=== PATIENT | female | born 1945 | race Caucasian/White ===

== ENCOUNTER → 2020-10-05 15:04 | Outpatient (BNVA) | payer MEDICARE, MEDICAID, SELFPAY | PROVIDERS: PCP Internal Medicine; Visit Provider Internal Medicine Cardiovascular Disease | DX: R00.2 Palpitations (principal) | CPT/HCPCS: 93005; 99212 ==

== ENCOUNTER 2023-08-17 18:40 | Inpatient (IN) | payer MEDICARE, MEDICAID, SELFPAY ==
--- NOTE | ~2023-08-17 | XR_ITS ---
Exams: Left tib-fib 4 views right tib-fib 4 views pelvis and right hip 3 views chest 1 view HISTORY: Assess for osteomyelitis. Fever. Rule out pneumonia. COMPARISON: Baseline including 01/22/2018. FINDINGS: Severe degeneration of the both knee joints. No focal osteolysis or periosteal new bone formation. Diffuse subcutaneous edema. Soft tissue calcifications anteriorly about the calf. No soft tissue air. Imaging of the pelvis and right femur demonstrates no focal deformity. No focal lesion or evidence for osteomyelitis. Coarse calcifications in the pelvis noted. Review of chest infiltrates mild cardia megaly. Allowing for technical limitations on this portable supine exam, there is no gross abnormality. No infiltrate. XR/XR hip RT w [id number] IMPRESSION: 1. Severe arthropathy of the knee joints. 2. No evidence for osteomyelitis of the pelvis or right femur. 3. Diffuse soft tissue swelling and subcutaneous emphysema. 4. 4. No active chest disease.
--- NOTE | ~2023-08-17 | XR_ITS ---
Exams: Left tib-fib 4 views right tib-fib 4 views pelvis and right hip 3 views chest 1 view HISTORY: Assess for osteomyelitis. Fever. Rule out pneumonia. COMPARISON: Baseline including 01/22/2018. FINDINGS: Severe degeneration of the both knee joints. No focal osteolysis or periosteal new bone formation. Diffuse subcutaneous edema. Soft tissue calcifications anteriorly about the calf. No soft tissue air. Imaging of the pelvis and right femur demonstrates no focal deformity. No focal lesion or evidence for osteomyelitis. Coarse calcifications in the pelvis noted. Review of chest infiltrates mild cardia megaly. Allowing for technical limitations on this portable supine exam, there is no gross abnormality. No infiltrate. XR/XR tibia fibula LT 2V IMPRESSION: 1. Severe arthropathy of the knee joints. 2. No evidence for osteomyelitis of the pelvis or right femur. 3. Diffuse soft tissue swelling and subcutaneous emphysema. 4. 4. No active chest disease.
--- NOTE | ~2023-08-17 | US_ITS ---
EXAMINATION: US VENOUS ULTRASOUND WITH DOPPLER LOWER EXTREMITY, BILATERAL CLINICAL INFORMATION: Bilateral leg swelling COMPARISON: None available. TECHNIQUE: Ultrasound of the deep veins is performed from the hip to the calf with compression sonography and color and pulse Doppler assessment. Spectral analysis with color-flow imaging is performed. The exam was extremely limited secondary to body habitus. Peroneal veins were not visualized FINDINGS: RIGHT: There is normal venous compression and respiratory variation and augmented flow. The visualized common femoral vein, superficial femoral vein, profunda femoral vein and popliteal vein show no evidence of DVT. Limited views of the tibial veins There is no significant popliteal fossa cyst. LEFT: There is normal venous compression and respiratory variation and augmented flow. The visualized common femoral vein, superficial femoral vein, profunda femoral vein and popliteal vein show no evidence of DVT. Limited views of the tibial veins There is no significant popliteal fossa cyst. If the patient's symptoms persist, followup ultrasound in 5 days 7 days might be of value to exclude proximal propagation from a non-visualized calf vein. US/US venous duplex LE BI IMPRESSION: No DVT demonstrated in the bilateral lower extremity.
--- NOTE | ~2023-08-17 | XR_ITS ---
Exams: Left tib-fib 4 views right tib-fib 4 views pelvis and right hip 3 views chest 1 view HISTORY: Assess for osteomyelitis. Fever. Rule out pneumonia. COMPARISON: Baseline including 01/22/2018. FINDINGS: Severe degeneration of the both knee joints. No focal osteolysis or periosteal new bone formation. Diffuse subcutaneous edema. Soft tissue calcifications anteriorly about the calf. No soft tissue air. Imaging of the pelvis and right femur demonstrates no focal deformity. No focal lesion or evidence for osteomyelitis. Coarse calcifications in the pelvis noted. Review of chest infiltrates mild cardia megaly. Allowing for technical limitations on this portable supine exam, there is no gross abnormality. No infiltrate. XR/XR tibia fibula RT 2V IMPRESSION: 1. Severe arthropathy of the knee joints. 2. No evidence for osteomyelitis of the pelvis or right femur. 3. Diffuse soft tissue swelling and subcutaneous emphysema. 4. 4. No active chest disease.
--- NOTE | ~2023-08-17 | XR_ITS ---
Exams: Left tib-fib 4 views right tib-fib 4 views pelvis and right hip 3 views chest 1 view HISTORY: Assess for osteomyelitis. Fever. Rule out pneumonia. COMPARISON: Baseline including 01/22/2018. FINDINGS: Severe degeneration of the both knee joints. No focal osteolysis or periosteal new bone formation. Diffuse subcutaneous edema. Soft tissue calcifications anteriorly about the calf. No soft tissue air. Imaging of the pelvis and right femur demonstrates no focal deformity. No focal lesion or evidence for osteomyelitis. Coarse calcifications in the pelvis noted. Review of chest infiltrates mild cardia megaly. Allowing for technical limitations on this portable supine exam, there is no gross abnormality. No infiltrate. XR/XR chest 1V IMPRESSION: 1. Severe arthropathy of the knee joints. 2. No evidence for osteomyelitis of the pelvis or right femur. 3. Diffuse soft tissue swelling and subcutaneous emphysema. 4. 4. No active chest disease.
--- NOTE | 2023-08-17 18:56 | ECG_ITS ---
Test Reason : SEPSIS Blood Pressure : / mmHG Vent. Rate : 114 BPM Atrial Rate : 114 BPM P-R Int : 184 ms QRS Dur : 112 ms QT Int : 346 ms P-R-T Axes : 000 -49 039 degrees QTc Int : 476 ms Poor data quality Sinus tachycardia Left anterior fascicular block Minimal voltage criteria for LVH, may be normal variant ( Tanmay product ) Possible Anterolateral infarct (cited on or before 23-JAN-2018) Abnormal ECG When compared with ECG of 12-DEC-2018 20:46, Poor data quality in current ECG precludes serial comparison Referred By: Zoë Villa Electronically Signed By:SALOMON CADET MD
[2023-08-17 19:04] VITALS: BP 140/90; BP 163/66; PULSE 110; PULSE 119; RESP 20; TEMP 40.3; O2SAT 90; O2SAT 94; BMI 60.5
--- NOTE | 2023-08-17 19:15 | ED_ITS ---
HPI - General Adult General Chief complaint: Fever Stated complaint: WEAK,NAUSEA FROM SNF PER EMS Time Seen by Provider: 08/17/23 19:07 Source: patient Mode of arrival: ambulatory Limitations: no limitations History of Present Illness HPI narrative: 78-year-old female with past medical history DVT, edema, hypokalemia, major depressive disorder,, pleural effusion peripheral vascular disease, morbid obesity, hypertension presents to the ED for presents to ED for bilateral lower extremity redness hotness and fever. Patient from prior any [facility]. Patient not in distress. patient denies any URI symptoms Related Data Home Medications Medication Instructions Recorded Confirmed apixaban 2.5 mg tablet 2.5 mg PO BID 10/05/20 08/17/23 diclofenac sodium 1 % topical gel 4 g topical Q6H PRN Pain (Scale 10/05/20 08/17/23 Score 1-3) duloxetine 60 mg capsule,delayed 60 mg PO DAILY 10/05/20 08/17/23 release famotidine 20 mg tablet 20 mg PO BEDTIME 10/05/20 08/17/23 gabapentin 100 mg capsule 100 mg PO TID 10/05/20 08/17/23 metoprolol tartrate 25 mg tablet 12.5 mg PO BID 10/05/20 08/17/23 trazodone 100 mg tablet 100 mg PO BEDTIME 10/05/20 08/17/23 acetaminophen 325 mg tablet 650 mg PO Q6H PRN Pain (Scale 08/17/23 08/17/23 Score 1-3) bisacodyl 10 mg rectal suppository 10 mg [place] DAILY PRN Constipation 08/17/23 08/17/23 cholecalciferol (vitamin D3) 50 50 mcg PO DAILY 08/17/23 08/17/23 mcg (2,000 unit) tablet docusate sodium 100 mg capsule 100 mg PO BID 08/17/23 08/17/23 furosemide 40 mg tablet 40 mg PO BID 08/17/23 08/17/23 guaifenesin 100 mg/5 mL oral liquid 200 mg PO Q4H PRN Cough 08/17/23 08/17/23 magnesium hydroxide 400 mg/5 mL 30 ml PO DAILY PRN Constipation 08/17/23 08/17/23 oral suspension (Milk of Magnesia) ondansetron HCl 4 mg tablet 4 mg PO Q4H PRN Nausea And Vomiting 08/17/23 08/17/23 potassium chloride 20 mEq 40 meq PO DAILY 08/17/23 08/17/23 tablet,extended release(part/cryst) (Klor-Con M) Allergies Allergy/AdvReac Type Severity Reaction Status Date / Time aspirin [ASPIRIN] Allergy Unknown TURNS RED Verified 08/17/23 19:46 codeine [CODEINE] Allergy Unknown UNKNOWN Verified 08/17/23 19:46 nitrofurantoin Allergy Unknown UNKNOWN Verified 08/17/23 19:46 [NITROFURANTOIN] Sulfa (Sulfonamide Allergy Unknown UNKNOWN Verified 08/17/23 19:46 Antibiotics) [SULFA (SULFONAMIDE ANTIBIOTICS)] Aspirin Allergy Unknown Unknown Uncoded 08/17/23 19:46 aspirin Allergy Unknown Unknown Uncoded 08/17/23 19:46 Review of Systems 2 Review of Systems: bilateral legs redness fever chills Yes all other systems are reviewed and are negative [facility] Past Medical History Medical History Obesity Chronic anticoagulation DVT (deep venous thrombosis) Lymphedema Mood disorder Congestive heart failure Social History Social History Household Members: Other Housing: [facility] Other:: [facility] and [facility] [place] Do you presently have visiting nurse or other home services: Yes Patient Tobacco Use Status: Never used Tobacco e-Cigarette/Vaping Use: Never Used Second Hand Smoke Exposure: No Advance Directives Date on File: 08/17/23 Physical Exam ED Vital Signs: Vital Signs - 24 hr 08/17/23 19:04 08/17/23 19:39 Temperature 104.5 F H 100.4 F Pulse Rate 119 H 116 H Respiratory Rate 20 20 Blood Pressure 163/66 H 118/54 L Pulse Oximetry 94 93 Oxygen Delivery Method Room Air Room Air BMI result Body Mass Index 60.5 Const General: cooperative, healthy appearing, comfortable, no acute distress, well developed, alert and awake Orientation/consciousness: oriented to person, oriented to place, oriented to time and patient oriented x3 HENMT Head: Yes normal to inspection, Yes No palpable skull fracture present, Yes normocephalic and Yes atraumatic Eyes General: appearance normal, both eyes and all related structures Neck Neck: Yes normal visual inspection, Yes full ROM, Yes no lymphadenopathy, Yes no meningeal signs, Yes trachea midline, Yes supple, No anterior neck swelling and No tender Chest Chest palpation & inspection: normal inspection of the chest and normal palpation of entire chest wall Resp Effort & Inspection: normal respiratory effort and able to speak in complete sentences Auscultation: clear to auscultation bilaterally Cardio Jugular venous distension: no JVD Heart sounds: S1 normal heart sound present and S2 normal heart sound present GI Inspection: Yes normal to inspection Palpation (GI): Soft to palpation, not firm, nontender, no guarding and not rigid General: Yes no CVA tenderness Back/Spine/Pelvis Back: no CVA tenderness and No back tenderness Skin General skin exam: no rashes or lesions noted, elasticity normal and turgor normal Neuro General: oriented to person, oriented to place, oriented to time, patient oriented x3, gait normal, tone normal, moves all extremities, Normal light touch and pain sensation, no meningeal signs, no focal motor deficits, CN's II-XI intact bilaterally and normal sensation to monofilament Extrem Other: bilateral leg redness warm hot to touch. Psych Appearance: grossly normal, well kempt and not disheveled Course Course Course Narrative: 7:15Pm: Sepsis protocal called Medications Administered Generic Name Dose Route Start Last Admin Trade Name Valentínq PRN Reason Stop Dose Admin Apixaban 5 mg 08/17/23 21:35 08/18/23 08:27 Apixaban 5 Mg Tablet PO 5 mg BID PAM Administration Docusate Sodium 100 mg 08/18/23 09:00 08/18/23 08:26 Docusate Sodium 100 Mg Capsule PO 100 mg BID PAM Administration Duloxetine HCl 60 mg 08/18/23 09:00 08/18/23 08:26 Duloxetine Hcl 60 Mg Capsule.Dr PO 60 mg DAILY PAM Administration Gabapentin 100 mg 08/18/23 09:00 08/18/23 08:26 Gabapentin 100 Mg Capsule PO 100 mg TID PAM Administration Piperacillin Sod/Tazobactam 50 mls @ 100 mls/hr 08/18/23 08:00 08/18/23 09:26 Sod 3.375 gm/ Sodium Chloride IV Infused Q6H PAM Infusion Sodium Chloride 3 ml 08/18/23 00:00 08/18/23 08:26 0.9 % Sodium Chloride Flush 3 Ml Syringe IVFLUSH 3 ml QSHIFT PAM Administration Trazodone HCl 100 mg 08/17/23 21:35 08/17/23 22:24 Trazodone Hcl 100 Mg Tablet PO 100 mg BEDTIME PAM Administration Vitamin D 50 mcg 08/18/23 09:00 08/18/23 08:26 Cholecalciferol (Vitamin D3) 25 Mcg Tablet PO 50 mcg DAILY PAM Administration Discontinued Medications Generic Name Dose Route Start Last Admin Trade Name Freq PRN Reason Stop Dose Admin Acetaminophen 975 mg 08/17/23 19:07 08/17/23 19:46 Acetaminophen 325 Mg Tablet PO 08/17/23 19:08 975 mg ONCE ONE Administration Vancomycin HCl 2,000 mg in 500 mls @ 250 mls/hr 08/17/23 19:17 08/18/23 02:27 Vancomycin/Ns IV 08/17/23 21:16 Infused ONCE ONE Infusion Piperacillin Sod/Tazobactam 50 mls @ 100 mls/hr 08/17/23 19:17 08/17/23 21:19 Sod 3.375 gm/ Sodium Chloride IV 08/17/23 19:46 Infused ONCE ONE Infusion Sodium Chloride 1,000 mls @ 999 mls/hr 08/17/23 20:03 08/17/23 23:50 Ns IV 08/17/23 21:03 Infused .Q1H1M STA Infusion Acetaminophen 1,000 mg in 100 mls @ 400 mls/hr 08/17/23 22:29 08/17/23 23:22 Ofirmev IV 08/17/23 22:43 Infused ONCE ONE Infusion Sodium Chloride 1,000 mls @ 999 mls/hr 08/18/23 02:59 08/18/23 04:01 Ns IV 08/18/23 03:59 Infused .Q1H1M ONE Infusion Cefepime HCl 2 gm/ Sodium 50 mls @ 100 mls/hr 08/18/23 04:00 08/18/23 04:59 Chloride IV Infused Q8H PAM Infusion Potassium Chloride 20 meq 08/18/23 07:37 08/18/23 08:27 Potassium Chloride Er 20 Meq Tab.Er.Prt PO 08/18/23 07:38 20 meq ONCE ONE Administration Medical Decision Making Medical Decision Making MDM Narrative: 78-year-old female multiple past medical histories presents to ED for fever tachycardia bilateral leg redness and hardness. Patient treated as septic and given IV antibiotics 1 L of fluid ordered. Patient history of CHF will not fluid overload. Dr. Norwood aware of case and recommended bilateral ultrasound and x-ray of the hip. Patient states right hip painful and warm also. ESR CRP elevated. Patient to be admitted Differential Diagnosis Differential Diagnoses: The differential diagnosis associated with the presentation includes (DVT, osteomyelilits, Cellulitis, necrotizing fasctitis, ) Admission/Observation Consideration of admission/observation: Escalation of care including admission/observation considered Consult Healthcare Provider Management of the patient was discussed with: Hospitalist (Dr. Silveira) Lab Data MDM Lab Attestation statement: I reviewed the patient's lab results. 08/18/23 06:12 08/18/23 06:12 Labs: Lab Results 08/17/23 Range/Units 19:32 WBC 23.7 H (4.8-10.8) X10*3/uL RBC 5.11 (4.20-5.50) X10*6/uL Hgb 14.5 (12.0-16.0) g/dl Hct 44.9 (37.0-47.0) % MCV 87.9 (80.0-98.0) fL MCH 28.4 (27.0-33.0) pg MCHC 32.3 (31.0-35.0) g/dl RDW 14.9 (11.0-16.0) % Plt Count 197 (160-400) X10*3/uL MPV 9.8 (9.4-12.3) fL Immature Gran % (Auto) Cancelled Neut % (Auto) Cancelled Lymph % (Auto) Cancelled Beckham % (Auto) Cancelled Eos % (Auto) Cancelled Baso % (Auto) Cancelled Lymph # (Auto) Cancelled Beckham # (Auto) Cancelled Eos # (Auto) Cancelled Baso # (Auto) Cancelled Abs Immat Gran (auto) Cancelled Absolute Neuts (auto) Cancelled Absolute Nucleated RBC 0.000 (0.0-0.012) X10*3/uL Nucleated RBC % (auto) 0.0 (0.0-0.2) /100WBC Neutrophils % (Manual) 71 (45-73) % Band Neutrophils % 27 H (3-5) % Lymphocytes % (Manual) 1 L (20-40) % Monocytes % (Manual) 1 L (2-11) % Abs Neuts (Manual) 23.2 H (2.0-8.3) X10*3/uL Lymphocytes # (Manual) 0.2 L (1.2-4.9) X10*3/uL Monocytes # (Manual) 0.2 (0.1-1.2) X10*3/uL Platelet Estimate NORMAL (NORMAL) Plt Morphology Comment NORMAL RBC Morphology NORMAL Smear Tech's Comments MANUAL DIFF ESR 67 H (0-20) MM/HR Sodium 142 (135-145) mmol/L Potassium 3.4 (3.3-5.1) mmol/L Chloride 96 (96-108) mmol/L Carbon Dioxide 33 H (22-29) mmol/L Anion Gap 16 (12-20) BUN 11 (9-16) mg/dL Creatinine 0.92 (0.5-1.4) mg/dL Estim Creat Clear Calc 79.5 Estimated GFR 59 Random Glucose 162 H (60-115) mg/dL Lactic Acid 3.4 H* (0.5-2.0) mmol/L Calcium 9.5 (8.4-10.2) mg/dL Magnesium 1.9 (1.6-2.6) mg/dL Total Bilirubin 0.8 (0.0-1.0) mg/dL AST 25 (5-31) U/L ALT 10 (0-31) U/L Alkaline Phosphatase 100 (39-117) U/L Troponin I High Sens 4.8 (<3.5-17.0) ng/L C-Reactive Protein 11.89 H (< or = 0.50) mg/dL B-Natriuretic Peptide 156 H (<100) pg/mL Total Protein 8.0 (6.5-8.0) g/dL Albumin 3.9 (3.5-5.0) g/dL Influenza Type A (PCR) NEGATIVE (Negative) Influenza Type B (PCR) NEGATIVE (Negative) RSV RNA Qual (PCR) NEGATIVE (Negative) SARS-CoV-2 RNA (RT-PCR) NEGATIVE (Negative) Independent Interpretation I performed an independent interpretation of an: Plain X-Ray and Ultrasound Radiology Impression Discussion of test interpretation with radiology: I have reviewed the radiologist's reading. External Record Review External record reviewed: Other (Prior Visits) Discharge Plan Discharge Clinical Impression: Sepsis due to cellulitis Patient Disposition: Admitted As Inpatient Interventions: Admission Worksheet (ED) Last Done: 08/17/23 23:37 Discharge Date/Time: 08/18/23 00:28
[2023-08-17 19:39] VITALS: BP 118/54; PULSE 116; RESP 20; TEMP 38; O2SAT 93
[2023-08-17 19:41] LABS: Hematocrit 44.9 % (37.0-47.0); Hemoglobin 14.5 g/dl (12.0-16.0); Mean Corpuscular HGB Conc 32.3 g/dl (31.0-35.0); Mean Corpuscular Hemoglobin 28.4 pg (27.0-33.0); Mean Corpuscular Volume 87.9 fL (80.0-98.0); Mean Platelet Volume 9.8 fL (9.4-12.3); Platelet Count 197 X10*3/uL (160-400); Red Blood Count 5.11 X10*6/uL (4.20-5.50); Red Cell Distribution Width 14.9 % (11.0-16.0); White Blood Count 23.7 X10*3/uL (4.8-10.8)
[2023-08-17] MEDS: Acetaminophen 325 MG TABLET 975 MG PO (19:46)
--- NOTE | 2023-08-17 19:50 | PC.NURSE ---
pt medicated with tylenol for fever
[2023-08-17 19:56] LABS: C Reactive Protein 11.89 mg/dL (< or = 0.50)
[2023-08-17 19:59] LABS: Alanine Aminotransferase 10 U/L (0-31); Albumin Level 3.9 g/dL (3.5-5.0); Alkaline Phosphatase 100 U/L (39-117); Anion Gap 16 (12-20); Aspartate Amino Transferase 25 U/L (5-31); Bilirubin Total 0.8 mg/dL (0.0-1.0); Blood Urea Nitrogen 11 mg/dL (9-16); Calcium 9.5 mg/dL (8.4-10.2); Carbon Dioxide 33 mmol/L (22-29); Chloride 96 mmol/L (96-108); Creatinine Clr Calc Pharmacy 79.5; Estimated Glomerular Filt Rate 59; Glucose Random 162 mg/dL (60-115); Magnesium 1.9 mg/dL (1.6-2.6); Potassium 3.4 mmol/L (3.3-5.1); Sodium 142 mmol/L (135-145)
[2023-08-17 20:01] LABS: B Type Natriuretic Peptide 156 pg/mL (<100)
--- NOTE | 2023-08-17 20:04 | PC.NURSE ---
labs and first set of cultures sent, IV placed to L AC. 2nd set of cultures delayed d/t hard stick
[2023-08-17 20:06] LABS: Troponin-I High Sensitivity 4.8 ng/L (<3.5-17.0)
[2023-08-17 20:10] LABS: Lactic Acid 3.4 mmol/L (0.5-2.0)
[2023-08-17 20:13] LABS: SLIDE REVIEW MANUAL DIFF
[2023-08-17 20:18] LABS: Neutrophils Percent Manual 71 % (45-73)
[2023-08-17] MEDS: Piperacillin Sodium/Tazobactam 3.375 GM in 0.9 % Sodium Chloride 50 ML IV (20:19)
[2023-08-17 20:20] LABS: Band Neutrophils Percent 27 % (3-5); Lymphocytes Absolute Manual 0.2 X10*3/uL (1.2-4.9); Lymphocytes Percent Manual 1 % (20-40); Monocytes Absolute Manual 0.2 X10*3/uL (0.1-1.2); Monocytes Percent Manual 1 % (2-11); Neutrophils Absolute Manual 23.2 X10*3/uL (2.0-8.3)
[2023-08-17 20:21] LABS: Platelet Estimate NORMAL (NORMAL); Platelet Morphology Comment NORMAL; RBC Morphology NORMAL
[2023-08-17 20:26] LABS: Influenza A PCR NEGATIVE (Negative); Influenza B PCR NEGATIVE (Negative); Resp Syncy Virus RNA Qual PCR NEGATIVE (Negative); SARS COV2 PCR INHOUSE NEGATIVE (Negative)
[2023-08-17] MEDS: 0.9 % Sodium Chloride 1,000 ML 999 ML IV (20:26)
--- NOTE | 2023-08-17 20:27 | PC.NURSE ---
2nd set of cultures obtained. abx and IVF started
[2023-08-17 20:31] LABS: Erythrocyte Sedimentation Rate 67 MM/HR (0-20)
--- NOTE | 2023-08-17 20:32 | PC.NURSE ---
pt taken to XR
--- NOTE | 2023-08-17 20:57 | PC.NURSE ---
pt DI Gaston, only infusing 1L NS d/t CHF.
--- NOTE | 2023-08-17 20:58 | PHA.MEDREC ---
Pharmacy Consult ? Medication Reconciliation Pharmacy has completed the medication reconciliation. med lis obtained from [facility]
[2023-08-17] MEDS: vancomycin/NS 2,000 MG/500 ML PLAST..BAG 250 MG IV (21:19)
--- NOTE | 2023-08-17 21:35 | P.HPHOSP_ITS ---
History of Present Illness Date of Service: 08/17/23 Chief Complaint: Fever This is a 78-year-old female with pertinent history of congestive heart failure, unspecified ejection fraction, mood disorder, history of DVT on anticoagulation, lymphedema who presents to the emergency department for evaluation of fevers. Patient states she has been having 1 day of fever, documented temperature. Also has been having associated chills. No nausea, vomiting, chest discomfort, palpitations, shortness of breath, cough, diarrhea, dysuria. Does not know if she has had a history of cellulitis. Admits red, warm right lower extremity. Also noticed intermittent purulent foul-smelling drainage. She is compliant with home medications In the emergency department, patient was found to be septic. Review of Systems 2 Constitutional: Constitutional: Reports chills and Reports fever(s) Cardiovascular: Cardiovascular: Reports no additional cardiovascular complaints Respiratory: Respiratory: Reports no additional respiratory complaints Gastrointestinal: Gastrointestinal: Reports no additional gastrointestinal complaints Genitourinary: Genitourinary: Reports no additional female genitourinary complaints [facility] Medical History Obesity Chronic anticoagulation DVT (deep venous thrombosis) Lymphedema Mood disorder Congestive heart failure Pertinent family history: No family history of early CAD Social History Smoked in Last 30 Days: No Use of substances other than those prescribed or required for medical reasons: No Advance Directives: Yes Advance Directives on File: Yes Advance Directives Date on File: 08/17/23 Meds Allergies Allergy/AdvReac Type Severity Reaction Status Date / Time aspirin [ASPIRIN] Allergy Unknown TURNS RED Verified 08/17/23 19:46 codeine [CODEINE] Allergy Unknown UNKNOWN Verified 08/17/23 19:46 nitrofurantoin Allergy Unknown UNKNOWN Verified 08/17/23 19:46 [NITROFURANTOIN] Sulfa (Sulfonamide Allergy Unknown UNKNOWN Verified 08/17/23 19:46 Antibiotics) [SULFA (SULFONAMIDE ANTIBIOTICS)] Aspirin Allergy Unknown Unknown Uncoded 08/17/23 19:46 aspirin Allergy Unknown Unknown Uncoded 08/17/23 19:46 Active Medications: Current Medications Acetaminophen (Acetaminophen 325 Mg Tablet) 650 mg PO Q6H PRN PRN Reason: Pain, Mild (Pain Scale 1-3) Apixaban (Apixaban 5 Mg Tablet) 5 mg PO BID [facility] Melatonin (Melatonin 3 Mg Tablet) 6 mg PO BEDTIME PRN PRN Reason: Insomnia Ondansetron HCl (Ondansetron Hcl 4 Mg/2 Ml Vial) 4 mg IVPUSH Q8H PRN PRN Reason: Nausea and Vomiting Pharmacy Consult (Consult Rx Vancomycin Dosing) 1 each MISCELLANE DAILY PRN PRN Reason: Consult order Sodium Chloride (0.9 % Sodium Chloride Flush 3 Ml Syringe) 3 ml IVFLUSH QSHIFT [facility] Home Medications Medication Instructions Recorded Confirmed Last Taken Type apixaban 2.5 mg tablet 2.5 mg PO BID 10/05/20 08/17/23 Unknown History diclofenac sodium 1 % topical gel 4 g topical Q6H PRN Pain (Scale 10/05/20 08/17/23 Unknown History Score 1-3) duloxetine 60 mg capsule,delayed 60 mg PO DAILY 10/05/20 08/17/23 Unknown History release famotidine 20 mg tablet 20 mg PO BEDTIME 10/05/20 08/17/23 Unknown History gabapentin 100 mg capsule 100 mg PO TID 10/05/20 08/17/23 Unknown History metoprolol tartrate 25 mg tablet 12.5 mg PO BID 10/05/20 08/17/23 Unknown History trazodone 100 mg tablet 100 mg PO BEDTIME 10/05/20 08/17/23 Unknown History acetaminophen 325 mg tablet 650 mg PO Q6H PRN Pain (Scale 08/17/23 08/17/23 Unknown History Score 1-3) bisacodyl 10 mg rectal suppository 10 mg [place] DAILY PRN Constipation 08/17/23 08/17/23 Unknown History cholecalciferol (vitamin D3) 50 50 mcg PO DAILY 08/17/23 08/17/23 Unknown History mcg (2,000 unit) tablet docusate sodium 100 mg capsule 100 mg PO BID 08/17/23 08/17/23 Unknown History furosemide 40 mg tablet 40 mg PO BID 08/17/23 08/17/23 Unknown History guaifenesin 100 mg/5 mL oral liquid 200 mg PO Q4H PRN Cough 08/17/23 08/17/23 Unknown History magnesium hydroxide 400 mg/5 mL 30 ml PO DAILY PRN Constipation 08/17/23 08/17/23 Unknown History oral suspension (Milk of Magnesia) ondansetron HCl 4 mg tablet 4 mg PO Q4H PRN Nausea And Vomiting 08/17/23 08/17/23 Unknown History potassium chloride 20 mEq 40 meq PO DAILY 08/17/23 08/17/23 Unknown History tablet,extended release(part/cryst) (Klor-Con M) Physical Exam 2 Vital Signs and Narrative: Vital Signs: Last Vital Signs Temp 100.4 F 08/17/23 19:39 Pulse 116 H 08/17/23 19:39 Resp 20 08/17/23 19:39 BP 118/54 L 08/17/23 19:39 Pulse Ox 93 08/17/23 19:39 O2 Del Method Room Air 08/17/23 19:39 BMI result Body Mass Index 60.5 Middle-aged morbidly obese female lying in bed in no distress Neck supple, no JVD Tachycardia with regular rhythm, S1-S2 heard Regular breath sounds bilaterally, no wheezing or crackles appreciated Abdomen soft nontender, no guarding, no rigidity Patient is awake, alert and oriented to self, place, time and person ; no focal motor deficit Right lower extremity with extensive, warmth, wounds with purulent serosanguineous drainage Psych: Normal mood Bilateral pedal edema Results Labs 08/17/23 19:32 08/17/23 19:32 Labs: Laboratory Results - last 24 hr 08/17/23 19:32 MCV 87.9 MCH 28.4 MCHC 32.3 RDW 14.9 Plt Count 197 MPV 9.8 Immature Gran % (Auto) Cancelled Neut % (Auto) Cancelled Lymph % (Auto) Cancelled Orange % (Auto) Cancelled Eos % (Auto) Cancelled Baso % (Auto) Cancelled Lymph # (Auto) Cancelled Orange # (Auto) Cancelled Eos # (Auto) Cancelled Baso # (Auto) Cancelled Abs Immat Gran (auto) Cancelled Absolute Neuts (auto) Cancelled Absolute Nucleated RBC 0.000 Nucleated RBC % (auto) 0.0 Neutrophils % (Manual) 71 Band Neutrophils % 27 H Lymphocytes % (Manual) 1 L Monocytes % (Manual) 1 L Abs Neuts (Manual) 23.2 H Lymphocytes # (Manual) 0.2 L Monocytes # (Manual) 0.2 Platelet Estimate NORMAL Plt Morphology Comment NORMAL RBC Morphology NORMAL Smear Tech's Comments MANUAL DIFF ESR 67 H Anion Gap 16 Estim Creat Clear Calc 79.5 Estimated GFR 59 Random Glucose 162 H Lactic Acid 3.4 H* Calcium 9.5 Magnesium 1.9 Total Bilirubin 0.8 AST 25 ALT 10 Alkaline Phosphatase 100 C-Reactive Protein 11.89 H B-Natriuretic Peptide 156 H Total Protein 8.0 Albumin 3.9 Influenza Type A (PCR) NEGATIVE Influenza Type B (PCR) NEGATIVE RSV RNA Qual (PCR) NEGATIVE SARS-CoV-2 RNA (RT-PCR) NEGATIVE Assessment and Plan (1) Sepsis due to cellulitis: Status: Acute Plan This is a 78-year-old female with pertinent history of congestive heart failure, unspecified ejection fraction, mood disorder, history of DVT on anticoagulation, lymphedema who presents to the emergency department for evaluation of fevers. #. Sepsis due to right lower extremity purulent cellulitis: Resuscitated with IV crystalloids. Will admit patient and initiate empiric IV antibiotics. Lactic acid and blood culture obtained. UA pending #. Acute lactic acidosis due to sepsis #. History of DVT: On Eliquis #. Congestive heart failure, unspecified EF: No decompensation during admission. Hold furosemide in the setting of sepsis. #. Morbid obesity: Counseled regarding diet and exercise #. Mood disorder: Continue home mood stabilizers DVT prophylaxis: Eliquis Full code Admit as inpatient and will require two night minimum hospital stay for IV antibiotics (as above), which is not possible in a lesser acute setting. Quality Stroke Does the patient have a stroke diagnosis?: No VTE Prior VTE?: No VTE Risk Level:: Medical - moderate - high VTE Device Contraindication: Treatment Not Indicated VTE Drug Contraindication: N/A - Med Ordered
[2023-08-17 21:38] LABS: Reflex Lactate? Lactic Acid Added
--- NOTE | 2023-08-17 21:55 | PHA.PROG ---
Admission Date/Time: August 17, 2023 21:32 Indication: ssti Weight in k kg Adjusted body weight in K.8 Millen body weight in K.4 Obesity Dosing Indication % IBW: Serum Creatinine - Last 168 Hours 08/17/23 19:32 Creatinine 0.92 Estimated CrCl and GFR - Last 168 Hours 08/17/23 19:32 Estim Creat Clear Calc 79.5 Estimated GFR 59 Vancomycin Loading Dose: 2000 mg Current Vancomycin Dosing Regimen: 1500 mg q24h Vancomycin Monitoring using AUC goal of 400 - 600 range with trough as surrogate marker: predicted auc 499 Date and Time for next Vancomycin Level to be drawn: random 08/19 @1900 Pharmacist Comments on Vancomycin Plan: patient obese, bmi 60.5. weight verified with zayra phelps in ed ( bed weight). obese model used. Vancomycin dosing will take advantage of [employer] as a clinical decision support tool that uses Bayesian modeling to calculate individual patient's pharmacokinetic parameters and forecast the patient's drug concentration time course with the target goal AUC 24 range of 400 - 600 mg/L/hr.
--- NOTE | 2023-08-17 21:59 | PC.NURSE ---
rectal temp 102.5. straight cath done, urine obtained. pure wick in place. pt resting with IVF and ABX infusing
[2023-08-17 22:06] VITALS: TEMP 39.2
[2023-08-17] MEDS: traZODone HCL 100 MG TABLET PO (22:24)
[2023-08-17] MEDS: Apixaban 5 MG TABLET PO (22:24)
[2023-08-17 22:28] LABS: ~Lactic Acid-LAB USE ONLY 3.1 mmol/L (0.5-2.0)
[2023-08-17 22:29] LABS: Appearance Urine Cloudy; Color Urine Yellow; Glucose Urine UA Negative (Negative); Leukocyte Esterase Urine Trace (Negative); Nitrite Urine Positive (Negative); PH 5.5 (5.0-9.0); UMIC TRIGGER UACC YES; Urine Blood Large (3+) (Negative); Urine Ketones Negative (Negative); Urine Protein 100 (2+) mg/dL (Neg-Trace)
--- NOTE | 2023-08-17 22:29 | PC.NURSE ---
critical lab. lactic 3.1. aware
[2023-08-17] MEDS: Acetaminophen 1,000 MG/100 ML PIGGYBACK 400 MG IV (23:03)
[2023-08-17 23:05] LABS: Bacteria Urine 4+ (None Seen); Hyaline Casts Urine 0-2 /LPF (0-2); RBC Urine >20 /HPF (0-2); Squamous Epithelial Cell Urine 0-2 /HPF (0-2); UACC Culture Trigger YES
--- NOTE | 2023-08-17 23:11 | PC.NURSE ---
IVF still infusing. IV pump with ABX had to be changed out. would not let me override the TOT time to match how much time was left (1.5 hrs). now infusing at a slower rate d/t time restarting at 2 hrs IV tylenol given per MAR for temp. pt resting comfortably in bed with eyes closed, breathing even and unlabored. not apparent distress noted at this time
[2023-08-17 23:54] VITALS: BP 111/43; PULSE 88; RESP 18; O2SAT 93
[2023-08-18 00:09] VITALS: BP 117/42; PULSE 87; TEMP 38
[2023-08-18 00:14] LABS: Reflex Lactate? 2 Y
[2023-08-18 00:43] VITALS: BP 96/50; PULSE 84; RESP 18; TEMP 36.8
[2023-08-18] MEDS: 0.9 % Sodium Chloride Flush 3 ML SYRINGE IVFLUSH ×4 (00:48→19:44)
[2023-08-18 00:50] VITALS: BMI 58.7
[2023-08-18 00:51] LABS: ~Lactic Acid-LAB USE ONLY 3.2 mmol/L (0.5-2.0)
[2023-08-18] MEDS: 0.9 % Sodium Chloride 1,000 ML 999 ML IV (03:00)
[2023-08-18 04:00] VITALS: BP 125/61; PULSE 77; RESP 18; TEMP 36.9; O2SAT 95
[2023-08-18] MEDS: cefEPime HCl 2 GM in 0.9 % Sodium Chloride 50 ML IV (04:29)
[2023-08-18 06:52] LABS: Creatinine Clr Calc Pharmacy 82.4; Estimated Glomerular Filt Rate > 60
--- NOTE | 2023-08-18 07:00 | CA_ITS ---
Transthoracic Echocardiogram Patient (Last, First, Middle): Roula Prescott C Gender: Female Date of : 1945 Age: 78 Procedure Date: 08/18/2023 Procedure Type: Transthoracic Echocardiogram Location: S3E Height: 162.56 cm Weight: 155.13 kg BSA: 2.46 m2 Heart Rate: bpm BP: 133 / 57 mmHg Industrial Editor: TO/ZINA Referring MD: Cali Paulino MD Filter Press Tender Head: Rey Coughlin MD Symptoms: strepo bacteremia Study Quality: Technically Difficult/contrast ECG Rhythm: Sinus Conclusions: - 1. Technically limited study despite use of contrast agent 2. Normal LV ejection fraction of 65-70% with mild LVH with pseudonormal filling pattern next 3. Cardiac valve are not well visualized with normal cardiac valvular Dopplers 4. Vegetations cannot be conclusively ruled out on this study 5. Mildly dilated ascending aorta Findings Procedure Information Contrast agent, definity, is being given per protocol without apparent complications. The study quality is limited by patients body habitus. Left Ventricle Normal left ventricular size and systolic function. There is mildly increased left ventricular wall thickness. The visually estimated ejection fraction is between 65-70%. Spectral Doppler is indicative of a pseudonormal filling pattern. E/E prime ratio is between 8 and 15 consistent with indeterminate filling pressures. Right Ventricle The right ventricle was not well visualized. Atria The left atrium was not well visualized. Interatrial shunt cannot be excluded. The right atrium was not well visualized. Aortic Valve The aortic valve was not well visualized. There is no aortic valve stenosis. There is no aortic valve regurgitation. Mitral Valve The mitral valve was not well visualized. There is mild mitral annular calcification. There is no mitral valve stenosis. Pulmonic Valve The pulmonic valve was not well visualized. Tricuspid Valve The tricuspid valve was not well visualized. Tricuspid regurgitation envelope is inadequate for calculation of right ventricular systolic pressure. Mildly elevated right atrial pressure. Great Vessels The pulmonary artery was not well visualized. There is mild dilatation of the ascending aorta measuring 3.80 cm. Venous The inferior vena cava is mildly dilated and collapses greater than 50% with inspiration. Pericardium/Pleural The pericardium was not well visualized. Prior Study Comparison Changes noted compared to prior study dated: 11/27/2017. LV systolic function is measured to be within normal range on this study Recommendations, Care & Conclusions Consider a KANG if clinically appropriate. Measurements 2D Linear Measurements IVSd: 1.23 0.6-0.9/0.6-1.0 cm LVIDd: 4.77 3.9-5.3/4.2-5.9 cm LVIDd Index: 1.94 2.4-3.2/2.2-3.1 cm/m2 LVIDs: 2.95 2.0-3.6 cm LVPWd: 1.19 0.7-1.1 cm LV Mass: 273.69 67-162/88-224 g LV Mass Index: 111.26 43-95/49-115 g/m2 LVOT Diam: 2.10 3.0+(-)1.3 cm 2D Systolic Function EF 4C: 67.80 >55% Mitral Valve MV VTI: 0.34 MV Pk Silvestre: 1.56 MV Mn Silvestre: 1.07 MV Pk Grad: 10.00 MV Mn Grad: 5.00 MV Pk E: 1.01 MV PK A: 0.93 MV Decel Time: 148.00 E/A: 1.10 E'Lateral: 5.22 E/E' Lat: 19.30 PHT: 43.00 MVA PHT: 5.12 MVA Continuity: 2.31 Decel Hood: 6.80 Aortic Valve AoV Pk Silvestre: 1.81 AoV Mn Silvestre: 1.39 AoV VTI: 0.30 AoV Pk Grad: 13.00 Aov Mn Grad: 8.00 ALFONSO Cont.VTI: 2.63 LVOT LVOT Pk Silvestre: 1.52 LVOT Mn Silvestre: 1.03 LVOT VTI: 0.23 LVOT Pk Grad: 9.00 LVOT Mn Grad: 5.00 LVOT Diam: 2.10 LVOT Area: 3.46 Diastolic Function MV Pk E: 1.01 MV Pk A: 0.93 E/A: 1.10 E' Laterial: 5.22 E/E' Lat: 19.30 Right Ventricle TAPSE (mm): 21.40 TVS' Silvestre: 17.70 Tricuspid Valve RA Press: 8.00 Great Vessels Aorta Sinus of Valsalva: 3.64 2.0-3.5 cm Ao Asc: 3.80 2.1-3.4 cm Updated in Other Vendor System with Status of Final Rey Coughlin MD electronically signed on 08/19/2023 9:21:37 AM with status of Final
[2023-08-18 07:02] LABS: Hematocrit 36.6 % (37.0-47.0); Hemoglobin 11.7 g/dl (12.0-16.0); Mean Corpuscular Hemoglobin 28.5 pg (27.0-33.0); Mean Corpuscular Volume 89.1 fL (80.0-98.0); Mean Platelet Volume 10.5 fL (9.4-12.3); Platelet Count 165 X10*3/uL (160-400); Red Blood Count 4.11 X10*6/uL (4.20-5.50); Red Cell Distribution Width 15.2 % (11.0-16.0); White Blood Count 19.6 X10*3/uL (4.8-10.8)
[2023-08-18 07:27] VITALS: BP 133/57; PULSE 86; RESP 18; TEMP 36.8; O2SAT 93
[2023-08-18 07:28] LABS: Anion Gap 15 (12-20); Blood Urea Nitrogen 14 mg/dL (9-16); Carbon Dioxide 29 mmol/L (22-29); Chloride 102 mmol/L (96-108); Creatinine Clr Calc Pharmacy 78.7; Estimated Glomerular Filt Rate > 60; Glucose Random 127 mg/dL (60-115); Potassium 3.1 mmol/L (3.3-5.1); Sodium 143 mmol/L (135-145)
[2023-08-18 07:34] LABS: Band Neutrophils Percent 25 % (3-5); Lymphocytes Absolute Manual 0.4 X10*3/uL (1.2-4.9); Lymphocytes Percent Manual 2 % (20-40); Monocytes Absolute Manual 0.2 X10*3/uL (0.1-1.2); Monocytes Percent Manual 1 % (2-11); Neutrophils Percent Manual 72 % (45-73)
[2023-08-18 07:38] LABS: RBC Morphology NORMAL
[2023-08-18 07:39] LABS: Dohle Bodies PRESENT; Large Platelet PRESENT; Platelet Estimate NORMAL (NORMAL); Platelet Morphology Comment NOTED; Toxic Vacuolation PRESENT
[2023-08-18 07:41] LABS: Calcium 8.4 mg/dL (8.4-10.2)
[2023-08-18 07:56] LABS: Estimated Average Glucose 114 mg/dL; Hemoglobin A1c % 5.6 % (<6.0)
[2023-08-18 08:02] LABS: Magnesium 1.8 mg/dL (1.6-2.6)
[2023-08-18] MEDS: Piperacillin Sodium/Tazobactam 3.375 GM in 0.9 % Sodium Chloride 50 ML IV ×3 (08:26→19:43)
[2023-08-18] MEDS: Cholecalciferol (Vitamin D3) 25 MCG TABLET 50 MCG PO (08:26)
[2023-08-18] MEDS: Docusate Sodium 100 MG CAPSULE PO ×2 (08:26→20:33)
[2023-08-18] MEDS: DULoxetine HCl 60 MG CAPSULE.DR PO (08:26)
[2023-08-18] MEDS: Gabapentin 100 MG CAPSULE PO ×3 (08:26→20:33)
[2023-08-18] MEDS: Potassium Chloride ER 20 MEQ TAB.ER.PRT PO (08:27)
[2023-08-18] MEDS: Apixaban 5 MG TABLET PO ×2 (08:27→20:33)
--- NOTE | 2023-08-18 10:16 | HO.PM.IMPN ---
Subjective Subjective Date of Service: 08/18/23 Interval History: no fever BCx + for GPCs in chains pain controlled Review of Systems Review of Systems: Yes all other systems are reviewed and are negative Physical Exam Vital Signs: Vital Signs: Last Vital Signs Temp 98.3 F 08/18/23 07:27 Pulse 86 08/18/23 07:27 Resp 18 08/18/23 07:27 BP 133/57 L 08/18/23 07:27 Pulse Ox 93 08/18/23 07:27 O2 Del Method Room Air 08/18/23 07:27 BMI result Body Mass Index 58.7 Gen: in no acute distress HEENT: sclera anicteric, moist mucus membranes Neck: supple Lungs: clear to auscultation bilaterally Heart: regular rate and rhythm, no murmurs Abd: soft, non-tender, non-distended, obese Ext: bilateral lymphedema, RLE with extensive erythema + purulent discharge but no fluctuant areas Skin: warm/well-perfused Neuro: alert and oriented x3, no focal findings Psych: appropriate affect Objective Data Active Medications Acetaminophen (Acetaminophen 325 Mg Tablet) 650 mg PO Q6H PRN PRN Reason: Pain, Mild (Pain Scale 1-3) Apixaban (Apixaban 5 Mg Tablet) 5 mg PO BID [facility] Last Admin: 08/18/23 08:27 Dose: 5 mg Documented By: HECTOR Bisacodyl (Bisacodyl 10 Mg Supp.Rect) 10 mg [place] DAILY PRN PRN Reason: Constipation Docusate Sodium (Docusate Sodium 100 Mg Capsule) 100 mg PO BID [facility] Last Admin: 08/18/23 08:26 Dose: 100 mg Documented By: HECTOR Duloxetine HCl (Duloxetine Hcl 60 Mg Capsule.) 60 mg PO DAILY [facility] Last Admin: 08/18/23 08:26 Dose: 60 mg Documented By: HECTOR Famotidine (Famotidine 20 Mg Tablet) 20 mg PO BEDTIME [facility] Gabapentin (Gabapentin 100 Mg Capsule) 100 mg PO TID [facility] Last Admin: 08/18/23 08:26 Dose: 100 mg Documented By: HECTOR Guaifenesin (Guaifenesin 100 Mg/5 Ml Liquid) 10 ml PO Q4H PRN PRN Reason: Cough Vancomycin HCl 1,500 mg/ (Sodium Chloride) 500 mls @ 333.333 mls/hr IV Q24H [facility] Piperacillin Sod/Tazobactam (Sod 3.375 gm/ Sodium Chloride) 50 mls @ 100 mls/hr IV Q6H [facility] Last Infusion: 08/18/23 09:26 Dose: Infused Documented By: HECTOR Magnesium Hydroxide (Milk Of Magnesia 30 Ml Oral.Susp) 30 ml PO DAILY PRN PRN Reason: Constipation Melatonin (Melatonin 3 Mg Tablet) 6 mg PO BEDTIME PRN PRN Reason: Insomnia Ondansetron HCl (Ondansetron Hcl 4 Mg/2 Ml Vial) 4 mg IVPUSH Q8H PRN PRN Reason: Nausea and Vomiting Pharmacy Consult (Consult Rx Vancomycin Dosing) 1 each MISCELLANE DAILY PRN PRN Reason: Consult order Sodium Chloride (0.9 % Sodium Chloride Flush 3 Ml Syringe) 3 ml IVFLUSH QSHIFT [facility] Last Admin: 08/18/23 08:26 Dose: 3 ml Documented By: HECTOR Trazodone HCl (Trazodone Hcl 100 Mg Tablet) 100 mg PO BEDTIME [facility] Last Admin: 08/17/23 22:24 Dose: 100 mg Documented By: SHADE-EUNICE Vitamin D (Cholecalciferol (Vitamin D3) 25 Mcg Tablet) 50 mcg PO DAILY [facility] Last Admin: 08/18/23 08:26 Dose: 50 mcg Documented By: HECTOR Labs 08/18/23 06:12 08/18/23 06:12 Labs: Laboratory Results - last 24 hr 08/17/23 08/17/23 08/17/23 19:32 21:58 22:09 MCV 87.9 MCH 28.4 MCHC 32.3 RDW 14.9 Plt Count 197 MPV 9.8 Immature Gran % (Auto) Cancelled Neut % (Auto) Cancelled Lymph % (Auto) Cancelled Lane % (Auto) Cancelled Eos % (Auto) Cancelled Baso % (Auto) Cancelled Lymph # (Auto) Cancelled Lane # (Auto) Cancelled Eos # (Auto) Cancelled Baso # (Auto) Cancelled Abs Immat Gran (auto) Cancelled Absolute Neuts (auto) Cancelled Absolute Nucleated RBC 0.000 Nucleated RBC % (auto) 0.0 Neutrophils % (Manual) 71 Band Neutrophils % 27 H Lymphocytes % (Manual) 1 L Monocytes % (Manual) 1 L Abs Neuts (Manual) 23.2 H Lymphocytes # (Manual) 0.2 L Monocytes # (Manual) 0.2 Toxic Vacuolation Dohle Bodies Platelet Estimate NORMAL Large Platelets Plt Morphology Comment NORMAL RBC Morphology NORMAL Smear Tech's Comments MANUAL DIFF ESR 67 H Anion Gap 16 Estim Creat Clear Calc 79.5 Estimated GFR 59 Random Glucose 162 H Estimat Average Glucose Hemoglobin A1c % Lactic Acid 3.4 H* Lactic Acid F/U @ 2Hr 3.1 H* Lactic Acid F/U @ 4Hr Calcium 9.5 Magnesium 1.9 Total Bilirubin 0.8 AST 25 ALT 10 Alkaline Phosphatase 100 C-Reactive Protein 11.89 H B-Natriuretic Peptide 156 H Total Protein 8.0 Albumin 3.9 Urine Color Yellow Urine Appearance Cloudy Urine pH 5.5 Ur Specific [place] 1.010 Urine Protein 100 (2+) H Urine Glucose (UA) Negative Urine Ketones Negative Urine Blood Large (3+) H Urine Nitrite Positive H Ur Leukocyte Esterase Trace H Urine RBC >20 H Urine WBC 11-20 H Ur Squamous Epith Cells 0-2 Urine Bacteria 4+ Hyaline Casts 0-2 Urine Yeast Present Influenza Type A (PCR) NEGATIVE Influenza Type B (PCR) NEGATIVE RSV RNA Qual (PCR) NEGATIVE SARS-CoV-2 RNA (RT-PCR) NEGATIVE 08/18/23 08/18/23 08/18/23 00:29 06:12 06:12 MCV 89.1 MCH 28.5 MCHC 32.0 RDW 15.2 Plt Count 165 MPV 10.5 Immature Gran % (Auto) Cancelled Neut % (Auto) Cancelled Lymph % (Auto) Cancelled Lane % (Auto) Cancelled Eos % (Auto) Cancelled Baso % (Auto) Cancelled Lymph # (Auto) Cancelled Lane # (Auto) Cancelled Eos # (Auto) Cancelled Baso # (Auto) Cancelled Abs Immat Gran (auto) Cancelled Absolute Neuts (auto) Cancelled Absolute Nucleated RBC 0.000 Nucleated RBC % (auto) 0.0 Neutrophils % (Manual) 72 Band Neutrophils % 25 H Lymphocytes % (Manual) 2 L Monocytes % (Manual) 1 L Abs Neuts (Manual) 19.0 H Lymphocytes # (Manual) 0.4 L Monocytes # (Manual) 0.2 Toxic Vacuolation PRESENT Dohle Bodies PRESENT Platelet Estimate NORMAL Large Platelets PRESENT Plt Morphology Comment NOTED RBC Morphology NORMAL Smear Tech's Comments ESR Anion Gap 15 Estim Creat Clear Calc 82.4 78.7 Estimated GFR > 60 Random Glucose Estimat Average Glucose Hemoglobin A1c % Lactic Acid Lactic Acid F/U @ 2Hr Lactic Acid F/U @ 4Hr 3.2 H* Calcium Magnesium Total Bilirubin AST ALT Alkaline Phosphatase C-Reactive Protein B-Natriuretic Peptide Total Protein Albumin Urine Color Urine Appearance Urine pH Ur Specific [place] Urine Protein Urine Glucose (UA) Urine Ketones Urine Blood Urine Nitrite Ur Leukocyte Esterase Urine RBC Urine WBC Ur Squamous Epith Cells Urine Bacteria Hyaline Casts Urine Yeast Influenza Type A (PCR) Influenza Type B (PCR) RSV RNA Qual (PCR) SARS-CoV-2 RNA (RT-PCR) 08/18/23 06:12 MCV MCH MCHC RDW Plt Count MPV Immature Gran % (Auto) Neut % (Auto) Lymph % (Auto) Lane % (Auto) Eos % (Auto) Baso % (Auto) Lymph # (Auto) Lane # (Auto) Eos # (Auto) Baso # (Auto) Abs Immat Gran (auto) Absolute Neuts (auto) Absolute Nucleated RBC Nucleated RBC % (auto) Neutrophils % (Manual) Band Neutrophils % Lymphocytes % (Manual) Monocytes % (Manual) Abs Neuts (Manual) Lymphocytes # (Manual) Monocytes # (Manual) Toxic Vacuolation Dohle Bodies Platelet Estimate Large Platelets Plt Morphology Comment RBC Morphology Smear Tech's Comments ESR Anion Gap Estim Creat Clear Calc Estimated GFR > 60 Random Glucose 127 H Estimat Average Glucose 114 Hemoglobin A1c % 5.6 Lactic Acid Lactic Acid F/U @ 2Hr Lactic Acid F/U @ 4Hr Calcium 8.4 D Magnesium 1.8 Total Bilirubin AST ALT Alkaline Phosphatase C-Reactive Protein B-Natriuretic Peptide Total Protein Albumin Urine Color Urine Appearance Urine pH Ur Specific [place] Urine Protein Urine Glucose (UA) Urine Ketones Urine Blood Urine Nitrite Ur Leukocyte Esterase Urine RBC Urine WBC Ur Squamous Epith Cells Urine Bacteria Hyaline Casts Urine Yeast Influenza Type A (PCR) Influenza Type B (PCR) RSV RNA Qual (PCR) SARS-CoV-2 RNA (RT-PCR) Microbiology Microbiology Results: Microbiology 08/17/23 19:32 Blood Culture - Preliminary Blood - Venous Prelim: GPC Gram Stain only Assessment and Plan (1) Sepsis due to cellulitis: Status: Acute Plan d2 78yo F LTC resident of [facility] with PMHx of HF unkonwn EF, mood disorder, hx DVT on apixaban, lymphedema admitted for sepsis due to purulent cellulitis, found to be bacteremic sepsis due to cellulitis/GPC bacteremia - vancomycin 08/17-, cefepime 08/17- change to pip/edwardo 08/18- - TTE, repeat BCx in AM, ID consult once we have organism hypoK - replete, recheck in AM hx DVT - apixaban HF unknown EF, chronic - hold furosemide for now morbid obesity - diet/exercise counseling mood disorder - continue duloxetine, trazodone neuropathy - continue gabapentin VTE ppx - apixaban dispo - eventual return to LTC In my clinical judgment, the patient requires continued inpatient hospitalization for the following reasons:IV ABX Total time managing care of this patient today: 35 minutes. Quality Stroke Does the patient have a stroke diagnosis?: No VTE Prior VTE?: No VTE Risk Level:: Medical - moderate - high VTE Device Contraindication: Treatment Not Indicated VTE Drug Contraindication: N/A - Med Ordered
[2023-08-18 16:00] VITALS: BP 128/59; PULSE 109; RESP 18; TEMP 37; O2SAT 94
--- NOTE | 2023-08-18 16:21 | MHC.CM.PN ---
CM ATTEMPTED TO SEE PT BEDSIDE IMAGING IN PROGRESS
[2023-08-18 19:38] VITALS: BP 132/58; PULSE 114; RESP 18; TEMP 37; O2SAT 94
[2023-08-18] MEDS: vancomycin HCL 1,500 MG in 0.9 % Sodium Chloride 500 ML 333.33 MG IV (20:25)
[2023-08-18] MEDS: traZODone HCL 100 MG TABLET PO (20:33)
[2023-08-18] MEDS: Famotidine 20 MG TABLET PO (20:33)
[2023-08-19] MEDS: Piperacillin Sodium/Tazobactam 3.375 GM in 0.9 % Sodium Chloride 50 ML IV ×4 (02:03→19:24)
[2023-08-19 04:00] VITALS: BP 129/59; PULSE 100; RESP 18; TEMP 36.7; O2SAT 94
[2023-08-19 06:32] LABS: Hematocrit 34.1 % (37.0-47.0); Hemoglobin 11.3 g/dl (12.0-16.0); Mean Corpuscular HGB Conc 33.1 g/dl (31.0-35.0); Mean Corpuscular Hemoglobin 29.3 pg (27.0-33.0); Mean Corpuscular Volume 88.3 fL (80.0-98.0); Mean Platelet Volume 10.4 fL (9.4-12.3); Platelet Count 156 X10*3/uL (160-400); Red Blood Count 3.86 X10*6/uL (4.20-5.50); Red Cell Distribution Width 15.6 % (11.0-16.0); White Blood Count 18.7 X10*3/uL (4.8-10.8)
[2023-08-19 06:44] LABS: Anion Gap 14 (12-20); Blood Urea Nitrogen 15 mg/dL (9-16); Calcium 8.3 mg/dL (8.4-10.2); Carbon Dioxide 28 mmol/L (22-29); Chloride 102 mmol/L (96-108); Creatinine Clr Calc Pharmacy 75.4; Estimated Glomerular Filt Rate 57; Glucose Random 120 mg/dL (60-115); Potassium 3.2 mmol/L (3.3-5.1); Sodium 141 mmol/L (135-145)
[2023-08-19 07:15] VITALS: BP 131/60; PULSE 98; RESP 20; TEMP 36; O2SAT 94
[2023-08-19 07:59] LABS: Magnesium 1.8 mg/dL (1.6-2.6)
[2023-08-19] MEDS: 0.9 % Sodium Chloride Flush 3 ML SYRINGE IVFLUSH ×3 (08:16→19:24)
[2023-08-19] MEDS: Potassium Chloride ER 20 MEQ TAB.ER.PRT 40 MEQ PO (08:16)
[2023-08-19] MEDS: Gabapentin 100 MG CAPSULE PO ×3 (08:17→20:39)
[2023-08-19] MEDS: Docusate Sodium 100 MG CAPSULE PO ×2 (08:17→20:39)
[2023-08-19] MEDS: Cholecalciferol (Vitamin D3) 25 MCG TABLET 50 MCG PO (08:17)
[2023-08-19] MEDS: DULoxetine HCl 60 MG CAPSULE.DR PO (08:17)
[2023-08-19] MEDS: Apixaban 5 MG TABLET PO ×2 (08:17→20:39)
--- NOTE | 2023-08-19 10:06 | P.PNIM_ITS ---
Subjective Subjective Date of Service: 08/19/23 Interval History: no fever legs still red/swollen BCx with Group G strep Review of Systems Review of Systems: Yes all other systems are reviewed and are negative Physical Exam 2 Vital Signs: Vital Signs: Last Vital Signs Temp 96.8 F 08/19/23 07:15 Pulse 98 08/19/23 07:15 Resp 20 08/19/23 07:15 BP 131/60 08/19/23 07:15 Pulse Ox 94 08/19/23 07:15 O2 Del Method Room Air 08/19/23 07:15 BMI result Body Mass Index 58.7 Gen: in no acute distress HEENT: sclera anicteric, moist mucus membranes Neck: supple Lungs: clear to auscultation bilaterally Heart: regular rate and rhythm, no murmurs Abd: soft, non-tender, non-distended, obese Ext: bilateral lymphedema, RLE + LLE with extensive dorsal erythema without purulence Skin: warm/well-perfused Neuro: alert and oriented x3, no focal findings Psych: appropriate affect Objective Data Active Medications Acetaminophen (Acetaminophen 325 Mg Tablet) 650 mg PO Q6H PRN PRN Reason: Pain, Mild (Pain Scale 1-3) Apixaban (Apixaban 5 Mg Tablet) 5 mg PO BID [facility] Last Admin: 08/19/23 08:17 Dose: 5 mg Documented By: HECTOR Bisacodyl (Bisacodyl 10 Mg Supp.Rect) 10 mg ID DAILY PRN PRN Reason: Constipation Docusate Sodium (Docusate Sodium 100 Mg Capsule) 100 mg PO BID [facility] Last Admin: 08/19/23 08:17 Dose: 100 mg Documented By: HECTOR Duloxetine HCl (Duloxetine Hcl 60 Mg Capsule.Dr) 60 mg PO DAILY [facility] Last Admin: 08/19/23 08:17 Dose: 60 mg Documented By: HECTOR Famotidine (Famotidine 20 Mg Tablet) 20 mg PO BEDTIME [facility] Last Admin: 08/18/23 20:33 Dose: 20 mg Documented By: FRANCISCO J Gabapentin (Gabapentin 100 Mg Capsule) 100 mg PO TID [facility] Last Admin: 08/19/23 08:17 Dose: 100 mg Documented By: HECTOR Guaifenesin (Guaifenesin 100 Mg/5 Ml Liquid) 10 ml PO Q4H PRN PRN Reason: Cough Vancomycin HCl 1,500 mg/ (Sodium Chloride) 500 mls @ 333.333 mls/hr IV Q24H [facility] Last Infusion: 08/18/23 22:09 Dose: Infused Documented By: FRANCISCO J Piperacillin Sod/Tazobactam (Sod 3.375 gm/ Sodium Chloride) 50 mls @ 100 mls/hr IV Q6H [facility] Last Infusion: 08/19/23 09:37 Dose: Infused Documented By: HECTOR Magnesium Hydroxide (Milk Of Magnesia 30 Ml Oral.Susp) 30 ml PO DAILY PRN PRN Reason: Constipation Melatonin (Melatonin 3 Mg Tablet) 6 mg PO BEDTIME PRN PRN Reason: Insomnia Ondansetron HCl (Ondansetron Hcl 4 Mg/2 Ml Vial) 4 mg IVPUSH Q8H PRN PRN Reason: Nausea and Vomiting Pharmacy Consult (Consult Rx Vancomycin Dosing) 1 each MISCELLANE DAILY PRN PRN Reason: Consult order Sodium Chloride (0.9 % Sodium Chloride Flush 3 Ml Syringe) 3 ml IVFLUSH QSHIFT [facility] Last Admin: 08/19/23 08:16 Dose: 3 ml Documented By: HECTOR Trazodone HCl (Trazodone Hcl 100 Mg Tablet) 100 mg PO BEDTIME [facility] Last Admin: 08/18/23 20:33 Dose: 100 mg Documented By: FRANCISCO J Vitamin D (Cholecalciferol (Vitamin D3) 25 Mcg Tablet) 50 mcg PO DAILY [facility] Last Admin: 08/19/23 08:17 Dose: 50 mcg Documented By: HECTOR Labs 08/19/23 06:09 08/19/23 06:10 Labs: Laboratory Results - last 24 hr 08/19/23 08/19/23 06:09 06:10 MCV 88.3 MCH 29.3 MCHC 33.1 RDW 15.6 Plt Count 156 L MPV 10.4 Absolute Nucleated RBC 0.000 Nucleated RBC % (auto) 0.0 Anion Gap 14 Estim Creat Clear Calc 75.4 Estimated GFR 57 Random Glucose 120 H Calcium 8.3 L Magnesium 1.8 Microbiology Microbiology Results: Microbiology 08/17/23 19:32 Blood Culture - Preliminary Blood - Venous Group G streptococcus 08/17/23 20:15 Blood Culture - Preliminary Blood - Venous No growth after 24 hours. 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 Technically limited study despite use of contrast agent 2. Normal LV ejection fraction of 65-70% with mild LVH with pseudonormal filling pattern 3. Cardiac valve are not well visualized with normal cardiac valvular Dopplers 4. Vegetations cannot be conclusively ruled out on this study 5. Mildly dilated ascending aorta hypoK - replete PO, recheck in AM hx DVT - apixaban chronic HFpEF - hold furosemide for now morbid obesity - diet/exercise counseling mood disorder - continue duloxetine, trazodone neuropathy - continue gabapentin VTE ppx - apixaban dispo - eventual return to LTC In my clinical judgment, the patient requires continued inpatient hospitalization for the following reasons: IV ABX, bacteremia Total time managing care of this patient today: 35 minutes. Quality Stroke Does the patient have a stroke diagnosis?: No VTE Prior VTE?: No VTE Risk Level:: Medical - moderate - high VTE Device Contraindication: Treatment Not Indicated VTE Drug Contraindication: N/A - Med Ordered
--- NOTE | 2023-08-19 14:52 | MHC.CM.PN ---
IMM 08/19/23 FEMALE 78 DX FEVER LTC RESIDENT @ [facility]. Pt is wc bound. she depends on assistance from staff for adls. She has a Molst on file. No HCP on file. Pt states that att Adithya Aguillon has retired. She has another energy attorney in the office now. She does not recall name. A request was sent to [facility] for updated HCP, via [email or web address] via BLS.
[2023-08-19 15:15] VITALS: BP 118/68; PULSE 97; RESP 18; TEMP 36.7; O2SAT 93
[2023-08-19 19:30] LABS: Vancomycin Random 10.9 mcg/mL (15-20)
[2023-08-19 19:31] VITALS: BP 121/58; PULSE 97; RESP 18; TEMP 36.6; O2SAT 95
--- NOTE | 2023-08-19 19:36 | HE.PHANOTE ---
RE GERARDO Patients level came back this evening at 10.9. PAtient is currently on 1500 mg Q24H, patient has only recieved a load and one dose of 1500 mg at this time. will continue with this current dose as patients AUC is predicted to be 501. patients indication is skin infection. Will get level after 1 more dose to see if AUC changes. Also patients renal function has not been stable. Level 08/20 @1900 to ensure safety vs efficacy
[2023-08-19 20:15] VITALS: BP 153/50; PULSE 108; RESP 16; TEMP 36.9; O2SAT 97
[2023-08-19] MEDS: vancomycin HCL 1,500 MG in 0.9 % Sodium Chloride 500 ML 333.33 MG IV (20:39)
[2023-08-19] MEDS: Famotidine 20 MG TABLET PO (20:39)
[2023-08-19] MEDS: traZODone HCL 100 MG TABLET PO (20:39)
[2023-08-19] MEDS: Albuterol Sulfate (0.083%) 2.5 MG/3 ML VIAL.NEB INHALE (20:41)
[2023-08-19 20:42] VITALS: PULSE 95; RESP 16; O2SAT 98
[2023-08-20] MEDS: Piperacillin Sodium/Tazobactam 3.375 GM in 0.9 % Sodium Chloride 50 ML IV ×4 (02:06→20:14)
--- NOTE | 2023-08-20 02:28 | PC.NURSE ---
pt came in with avi. cellulites avi. leg; spread to waist. it is marked. nothing change since yesterday. pt has destinyo and prashanthn on. will continue to monitor any changes.
[2023-08-20 03:51] VITALS: BP 99/48; PULSE 90; RESP 16; TEMP 36.1; O2SAT 94
[2023-08-20 07:20] LABS: Hematocrit 33.8 % (37.0-47.0); Hemoglobin 10.7 g/dl (12.0-16.0); Mean Corpuscular HGB Conc 31.7 g/dl (31.0-35.0); Mean Corpuscular Hemoglobin 28.1 pg (27.0-33.0); Mean Corpuscular Volume 88.7 fL (80.0-98.0); Mean Platelet Volume 10.4 fL (9.4-12.3); Platelet Count 155 X10*3/uL (160-400); Red Blood Count 3.81 X10*6/uL (4.20-5.50); Red Cell Distribution Width 15.5 % (11.0-16.0); White Blood Count 14.7 X10*3/uL (4.8-10.8)
[2023-08-20 07:27] VITALS: BP 127/57; PULSE 91; RESP 20; TEMP 36.8; O2SAT 93
[2023-08-20] MEDS: 0.9 % Sodium Chloride Flush 3 ML SYRINGE IVFLUSH ×2 (08:04→23:47)
[2023-08-20] MEDS: Apixaban 5 MG TABLET PO ×2 (08:39→20:13)
[2023-08-20] MEDS: Docusate Sodium 100 MG CAPSULE PO ×2 (08:40→20:13)
[2023-08-20] MEDS: Gabapentin 100 MG CAPSULE PO ×3 (08:40→20:13)
[2023-08-20] MEDS: Cholecalciferol (Vitamin D3) 25 MCG TABLET 50 MCG PO (08:40)
[2023-08-20] MEDS: DULoxetine HCl 60 MG CAPSULE.DR PO (08:40)
[2023-08-20 09:40] LABS: Anion Gap 12 (12-20); Blood Urea Nitrogen 14 mg/dL (9-16); Calcium 8.7 mg/dL (8.4-10.2); Carbon Dioxide 30 mmol/L (22-29); Chloride 102 mmol/L (96-108); Creatinine Clr Calc Pharmacy 87.4; Estimated Glomerular Filt Rate > 60; Glucose Random 105 mg/dL (60-115); Magnesium 2.1 mg/dL (1.6-2.6); Potassium 3.5 mmol/L (3.3-5.1); Sodium 140 mmol/L (135-145)
--- NOTE | 2023-08-20 12:54 | HO.PM.IMPN ---
Subjective Subjective Date of Service: 08/20/23 Interval History: BCx with Group G strep, leg cellulitis Review of Systems no fever,legs still red/swollen Review of Systems: Yes all other systems are reviewed and are negative Physical Exam Vital Signs: Vital Signs: Last Vital Signs Temp 98.3 F 08/20/23 07:27 Pulse 91 08/20/23 07:27 Resp 20 08/20/23 07:27 BP 127/57 L 08/20/23 07:27 Pulse Ox 93 08/20/23 07:27 O2 Del Method Room Air 08/20/23 07:27 O2 Flow Rate 2 08/19/23 20:15 BMI result Body Mass Index 58.7 Gen: in no acute distress Lungs: fair air entry, no rales or wheezing Heart: rrr,s1s2 heard. Abd: obese,soft, nt.nd.bs present. Ext: bilateral lymphedema, RLE + LLE with extensive dorsal erythema without purulence Skin: no cyanosis or edema . Neuro: alert and oriented x3, no focal findings Psych: appropriate affect Objective Data Active Medications Acetaminophen (Acetaminophen 325 Mg Tablet) 650 mg PO Q6H PRN PRN Reason: Pain, Mild (Pain Scale 1-3) Apixaban (Apixaban 5 Mg Tablet) 5 mg PO BID [facility] Last Admin: 08/20/23 08:39 Dose: 5 mg Documented By: LUIS ALFREDO Bisacodyl (Bisacodyl 10 Mg Supp.Rect) 10 mg [place] DAILY PRN PRN Reason: Constipation Docusate Sodium (Docusate Sodium 100 Mg Capsule) 100 mg PO BID [facility] Last Admin: 08/20/23 08:40 Dose: 100 mg Documented By: LUIS ALFREDO Duloxetine HCl (Duloxetine Hcl 60 Mg Capsule.Dr) 60 mg PO DAILY [facility] Last Admin: 08/20/23 08:40 Dose: 60 mg Documented By: LUIS ALFREDO Famotidine (Famotidine 20 Mg Tablet) 20 mg PO BEDTIME [facility] Last Admin: 08/19/23 20:39 Dose: 20 mg Documented By: FRANCISCO J Gabapentin (Gabapentin 100 Mg Capsule) 100 mg PO TID [facility] Last Admin: 08/20/23 08:40 Dose: 100 mg Documented By: LUIS ALFREDO Guaifenesin (Guaifenesin 100 Mg/5 Ml Liquid) 10 ml PO Q4H PRN PRN Reason: Cough Vancomycin HCl 1,500 mg/ (Sodium Chloride) 500 mls @ 333.333 mls/hr IV Q24H [facility] Last Infusion: 08/19/23 22:34 Dose: Infused Documented By: FRANCISCO J Piperacillin Sod/Tazobactam (Sod 3.375 gm/ Sodium Chloride) 50 mls @ 100 mls/hr IV Q6H [facility] Last Infusion: 08/20/23 08:36 Dose: Infused Documented By: LUIS ALFREDO Magnesium Hydroxide (Milk Of Magnesia 30 Ml Oral.Susp) 30 ml PO DAILY PRN PRN Reason: Constipation Melatonin (Melatonin 3 Mg Tablet) 6 mg PO BEDTIME PRN PRN Reason: Insomnia Ondansetron HCl (Ondansetron Hcl 4 Mg/2 Ml Vial) 4 mg IVPUSH Q8H PRN PRN Reason: Nausea and Vomiting Pharmacy Consult (Consult Rx Vancomycin Dosing) 1 each MISCELLANE DAILY PRN PRN Reason: Consult order Sodium Chloride (0.9 % Sodium Chloride Flush 3 Ml Syringe) 3 ml IVFLUSH QSHIFT [facility] Last Admin: 08/20/23 08:04 Dose: 3 ml Documented By: LUIS ALFREDO Trazodone HCl (Trazodone Hcl 100 Mg Tablet) 100 mg PO BEDTIME [facility] Last Admin: 08/19/23 20:39 Dose: 100 mg Documented By: FRANCISCO J Vitamin D (Cholecalciferol (Vitamin D3) 25 Mcg Tablet) 50 mcg PO DAILY [facility] Last Admin: 08/20/23 08:40 Dose: 50 mcg Documented By: LUIS ALFREDO Labs 08/20/23 06:20 08/20/23 08:49 Labs: Laboratory Results - last 24 hr 08/19/23 08/20/23 08/20/23 19:04 06:20 08:49 MCV 88.7 MCH 28.1 MCHC 31.7 RDW 15.5 Plt Count 155 L MPV 10.4 Absolute Nucleated RBC 0.000 Nucleated RBC % (auto) 0.0 Anion Gap 12 Estim Creat Clear Calc 87.4 Estimated GFR > 60 Random Glucose 105 Calcium 8.7 Magnesium 2.1 Random Vancomycin 10.9 L Microbiology Microbiology Results: Microbiology 08/19/23 07:29 Blood Culture - Preliminary Blood - Venous No growth after 24 hours. 08/17/23 19:32 Blood Culture - Final Blood - Venous Group G streptococcus 08/19/23 06:10 Blood Culture - Preliminary Blood - Venous No growth after 24 hours. 08/17/23 Unknown Urine Culture - Preliminary Urine clean catch - Urine gu top Gram negative caryl 08/17/23 20:15 Blood Culture - Preliminary Blood - Venous No growth after 48 hours. Assessment and Plan (1) Streptococcal bacteremia: Status: Acute Plan Day 4: 78yo F LTC resident of [facility] with PMHx CHF, mood disorder, hx DVT on apixaban, lymphedema admitted for sepsis due to purulent cellulitis, found to be bacteremic sepsis due to cellulitis/group G streptococcal bacteremia: blood cultures 08/17 : 1/2:group G streptococcal bacteremia UA: positive for pyuria/bacteruria /micro hemtauria ,urine culture -gram neg caryl. repeat BCx 08/19. TTE 08/18: 1. Technically limited study despite use of contrast agent 2. Normal LV ejection fraction of 65-70% with mild LVH with pseudonormal filling pattern 3. Cardiac valve are not well visualized with normal cardiac valvular Dopplers 4. Vegetations cannot be conclusively ruled out on this study 5. Mildly dilated ascending aorta. Plan: vanco trough: 10.9 (08/19/23) vancomycin 08/17-, cefepime 08/17- changed to pip/edwardo 08/18. ID consultation hypoK- repleted and resolved. hx DVT- apixaban chronic HFpEF- hold furosemide for now morbid obesity- diet/exercise counseling mood disorder- continue duloxetine, trazodone neuropathy- continue gabapentin VTE ppx- apixaban dispo- eventual return to LTC In my clinical judgment, the patient requires continued inpatient hospitalization for the following reasons: IV ABX, bacteremia ,repeat blood cultures as well as urine culture -identification/senstivities pending. Quality Stroke Does the patient have a stroke diagnosis?: No VTE Prior VTE?: No VTE Risk Level:: Medical - moderate - high VTE Device Contraindication: Treatment Not Indicated VTE Drug Contraindication: N/A - Med Ordered
[2023-08-20 15:18] VITALS: BP 119/54; PULSE 92; RESP 16; TEMP 36.7; O2SAT 93
[2023-08-20 19:28] VITALS: BP 133/6; PULSE 100; RESP 18; TEMP 36.4
[2023-08-20 19:30] LABS: Vancomycin Random 12.7 mcg/mL (15-20)
--- NOTE | 2023-08-20 19:35 | HE.PHANOTE ---
vancomycin addendum: Level came back at 12.7, predicted AUC 463. Will leave dose at 1500 mg q 24 hours
[2023-08-20] MEDS: Acetaminophen 325 MG TABLET 650 MG PO (20:12)
[2023-08-20] MEDS: Famotidine 20 MG TABLET PO (20:13)
[2023-08-20] MEDS: traZODone HCL 100 MG TABLET PO (20:13)
[2023-08-20] MEDS: vancomycin HCL 1,500 MG in 0.9 % Sodium Chloride 500 ML 333.33 MG IV (20:46)
[2023-08-21] MEDS: Piperacillin Sodium/Tazobactam 3.375 GM in 0.9 % Sodium Chloride 50 ML IV ×2 (02:30→08:14)
[2023-08-21 03:57] VITALS: BP 124/58; PULSE 86; RESP 16; TEMP 36; O2SAT 94
[2023-08-21 07:21] VITALS: BP 146/67; PULSE 82; RESP 18; TEMP 36.2; O2SAT 94
[2023-08-21 07:26] LABS: Creatinine Clr Calc Pharmacy 84.3; Estimated Glomerular Filt Rate > 60
[2023-08-21] MEDS: Cholecalciferol (Vitamin D3) 25 MCG TABLET 50 MCG PO (08:13)
[2023-08-21] MEDS: DULoxetine HCl 60 MG CAPSULE.DR PO (08:13)
[2023-08-21] MEDS: Gabapentin 100 MG CAPSULE PO ×3 (08:13→19:45)
[2023-08-21] MEDS: Apixaban 5 MG TABLET PO ×2 (08:13→19:45)
[2023-08-21] MEDS: Docusate Sodium 100 MG CAPSULE PO ×2 (08:13→19:45)
[2023-08-21] MEDS: 0.9 % Sodium Chloride Flush 3 ML SYRINGE IVFLUSH ×3 (08:13→19:47)
--- NOTE | 2023-08-21 10:28 | MHC.CM.PN ---
EMR reviewed. Per MD rounds patient is not medically cleared for DC. Awaiting ID. CM will continue to follow.
--- NOTE | 2023-08-21 12:47 | W.PM.IDCN ---
History of Present Illness Data of Consult Service Date: 08/20/23 Requesting physician: Lazaro Benjamin Primary Care Provider: Zunilda Watts MD [facility] Reason for consult: sepsis,Group G strep She presents with fever and chills for a day. She has temperature 102.5 and pulse 112. She has bilateral redness LE, right more than left. She has Group G strep isolated from blood and Klebsiella urine although no urinary symptoms. Review of Systems Musculoskeletal: Comments: redness bilateral legs PMFSH Past Medical History Medical History Obesity Chronic anticoagulation DVT (deep venous thrombosis) Lymphedema Mood disorder Congestive heart failure Social History Social History Household Members: Other Housing: [facility] Do you presently have visiting nurse or other home services: Yes Patient Tobacco Use Status: Never used Tobacco e-Cigarette/Vaping Use: Never Used Second Hand Smoke Exposure: No Advance Directives Date on File: 08/17/23 Meds Allergies Allergy/AdvReac Type Severity Reaction Status Date / Time aspirin [ASPIRIN] Allergy Unknown TURNS RED Verified 08/17/23 19:46 codeine [CODEINE] Allergy Unknown UNKNOWN Verified 08/17/23 19:46 nitrofurantoin Allergy Unknown UNKNOWN Verified 08/17/23 19:46 [NITROFURANTOIN] Sulfa (Sulfonamide Allergy Unknown UNKNOWN Verified 08/17/23 19:46 Antibiotics) [SULFA (SULFONAMIDE ANTIBIOTICS)] Aspirin Allergy Unknown Unknown Uncoded 08/17/23 19:46 aspirin Allergy Unknown Unknown Uncoded 08/17/23 19:46 Active Medications: Current Medications Acetaminophen (Acetaminophen 325 Mg Tablet) 650 mg PO Q6H PRN PRN Reason: Pain, Mild (Pain Scale 1-3) Last Admin: 08/20/23 20:12 Dose: 650 mg Apixaban (Apixaban 5 Mg Tablet) 5 mg PO BID [facility] Last Admin: 08/21/23 08:13 Dose: 5 mg Bisacodyl (Bisacodyl 10 Mg Supp.Rect) 10 mg [place] DAILY PRN PRN Reason: Constipation Docusate Sodium (Docusate Sodium 100 Mg Capsule) 100 mg PO BID [facility] Last Admin: 08/21/23 08:13 Dose: 100 mg Duloxetine HCl (Duloxetine Hcl 60 Mg Capsule.Dr) 60 mg PO DAILY [facility] Last Admin: 08/21/23 08:13 Dose: 60 mg Famotidine (Famotidine 20 Mg Tablet) 20 mg PO BEDTIME [facility] Last Admin: 08/20/23 20:13 Dose: 20 mg Gabapentin (Gabapentin 100 Mg Capsule) 100 mg PO TID [facility] Last Admin: 08/21/23 08:13 Dose: 100 mg Guaifenesin (Guaifenesin 100 Mg/5 Ml Liquid) 10 ml PO Q4H PRN PRN Reason: Cough Vancomycin HCl 1,500 mg/ (Sodium Chloride) 500 mls @ 333.333 mls/hr IV Q24H [facility] Last Infusion: 08/20/23 22:26 Dose: Infused Piperacillin Sod/Tazobactam (Sod 3.375 gm/ Sodium Chloride) 50 mls @ 100 mls/hr IV Q6H [facility] Last Infusion: 08/21/23 08:50 Dose: Infused Magnesium Hydroxide (Milk Of Magnesia 30 Ml Oral.Susp) 30 ml PO DAILY PRN PRN Reason: Constipation Melatonin (Melatonin 3 Mg Tablet) 6 mg PO BEDTIME PRN PRN Reason: Insomnia Ondansetron HCl (Ondansetron Hcl 4 Mg/2 Ml Vial) 4 mg IVPUSH Q8H PRN PRN Reason: Nausea and Vomiting Pharmacy Consult (Consult Rx Vancomycin Dosing) 1 each MISCELLANE DAILY PRN PRN Reason: Consult order Sodium Chloride (0.9 % Sodium Chloride Flush 3 Ml Syringe) 3 ml IVFLUSH QSHIFT [facility] Last Admin: 08/21/23 08:13 Dose: 3 ml Trazodone HCl (Trazodone Hcl 100 Mg Tablet) 100 mg PO BEDTIME [facility] Last Admin: 08/20/23 20:13 Dose: 100 mg Vitamin D (Cholecalciferol (Vitamin D3) 25 Mcg Tablet) 50 mcg PO DAILY [facility] Last Admin: 08/21/23 08:13 Dose: 50 mcg Home Medications Medication Instructions Recorded Confirmed Last Taken Type apixaban 2.5 mg tablet 2.5 mg PO BID 10/05/20 08/17/23 Unknown History diclofenac sodium 1 % topical gel 4 g topical Q6H PRN Pain (Scale 10/05/20 08/17/23 Unknown History Score 1-3) duloxetine 60 mg capsule,delayed 60 mg PO DAILY 10/05/20 08/17/23 Unknown History release famotidine 20 mg tablet 20 mg PO BEDTIME 10/05/20 08/17/23 Unknown History gabapentin 100 mg capsule 100 mg PO TID 10/05/20 08/17/23 Unknown History metoprolol tartrate 25 mg tablet 12.5 mg PO BID 10/05/20 08/17/23 Unknown History trazodone 100 mg tablet 100 mg PO BEDTIME 10/05/20 08/17/23 Unknown History acetaminophen 325 mg tablet 650 mg PO Q6H PRN Pain (Scale 08/17/23 08/17/23 Unknown History Score 1-3) bisacodyl 10 mg rectal suppository 10 mg NC DAILY PRN Constipation 08/17/23 08/17/23 Unknown History cholecalciferol (vitamin D3) 50 50 mcg PO DAILY 08/17/23 08/17/23 Unknown History mcg (2,000 unit) tablet docusate sodium 100 mg capsule 100 mg PO BID 08/17/23 08/17/23 Unknown History furosemide 40 mg tablet 40 mg PO BID 08/17/23 08/17/23 Unknown History guaifenesin 100 mg/5 mL oral liquid 200 mg PO Q4H PRN Cough 08/17/23 08/17/23 Unknown History magnesium hydroxide 400 mg/5 mL 30 ml PO DAILY PRN Constipation 08/17/23 08/17/23 Unknown History oral suspension (Milk of Magnesia) ondansetron HCl 4 mg tablet 4 mg PO Q4H PRN Nausea And Vomiting 08/17/23 08/17/23 Unknown History potassium chloride 20 mEq 40 meq PO DAILY 08/17/23 08/17/23 Unknown History tablet,extended release(part/cryst) (Klor-Con M) Physical Exam Vital Signs: Vital Signs: Last Vital Signs Temp 97.2 F 08/21/23 07:21 Pulse 82 08/21/23 07:21 Resp 18 08/21/23 07:21 BP 146/67 H 08/21/23 07:21 Pulse Ox 94 08/21/23 07:21 O2 Del Method Room Air 08/21/23 07:21 O2 Flow Rate 2 08/19/23 20:15 BMI result Body Mass Index 58.7 Extrem: Other: reddened mid calf legs ,right more than left no significant tinea pedis plus three swelling Results Labs 08/20/23 06:20 08/21/23 06:45 Labs: BMP 08/21/23 06:45 Creatinine 0.85 Microbiology Microbiology Results: Microbiology 08/19/23 07:29 Blood - Venous Blood Culture - Preliminary No growth after 48 hours. 08/19/23 06:10 Blood - Venous Blood Culture - Preliminary No growth after 48 hours. 08/17/23 Unknown Urine clean catch - Urine gu top Urine Culture - Final Klebsiella pneumoniae 08/17/23 19:32 Blood - Venous Blood Culture - Final Group G streptococcus 08/17/23 20:15 Blood - Venous Blood Culture - Preliminary No growth after 48 hours. Assessment and Plan (1) Streptococcal bacteremia: Status: Acute She has Group G strep bacteremia due to cellulitis (2) Sepsis due to cellulitis: Status: Acute Would give Ceftriaxone and can switch to po cephalosporin when improved for total 14 days likely. Echo was suboptimal and would do KANG only if patient acceptable risk as only low suspicion endocarditis. Use antifungal to interdigital area feet She may benefit from PCN cellulitis prophylaxis after acute treatment,please set up in office. (3) Congestive heart failure: Status: Acute
--- NOTE | 2023-08-21 14:02 | HO.WOUND ---
Wound Consult: Initial 78yr old female admitted to [facility] on 08/17/23 21:32? - See progress notes and H&P for detailed history. Wound consult placed for Bilateral Lower Legs. Arrival to bedside pt was agreeable to assessment and photo documentation. She reports wounds are treated at her facility with wound gel and calcium alginate and pilo wraps. She denies history of lymphedema clinic and or specialist - pt will benefit greatly from outpt Lymphedema specialist assessment and intervention. Brief chart review performed todays assessment reveals slightly improved wound beds compared to admission photos from 08/17/23. Left Leg Right Leg Right Lateral Leg Right Leg Posterior Bilateral Lower Legs Etiology: ??Cellulitis and Venous Dermatitis Wound Bed: appears to be improving based on photo review - scattered areas of clean partial thickness tissue loss Drainage / Odor: serous drainage noted from right posterior leg / deroofed bulla site Edges: ? irregular Brianna wound: Red warm erythema no advancing past markings firm swelling noted, No Fluctuance noted Pain: pt denies pain Goals of Treatment: ? Moist wound healing with vaseline and xeroform Recommendations: 1. Turn and Reposition every 2 hours and as needed for patient comfort - consider use of wedges to aid in maintaining off load positions. 2. Off Load all bony prominences with use of pillows and heel boots if needed.? Apply Preventative foams where needed. ? 3. Monitor for incontinence and moisture control, use barrier creams when needed for prevention and treatment. Purewick in place. 4. Provide adequate and supplemental nutrition. 5. Order low air loss mattress. 6. Bilateral Lower Legs - Elevate lower legs off of bed surface with use of pillows. Cleanse with NS or PH balanced wipes. Apply vaseline ointment to dry tissue. cover open wounds and blisters with single layer xeroform. Apply dry santos disposable pad under leg to aid in wicking drainage away from leg. Refer to Outpt Wound Clinic and Outpt Lymphedema Clinic for continued treatment. Re-consult wound care Nurse for wound deterioration or wound changes.
[2023-08-21] MEDS: cefTRIAXone sodium 1 GM in 0.9 % Sodium Chloride 50 ML IV (14:30)
[2023-08-21 15:41] VITALS: BP 130/82; PULSE 90; RESP 18; TEMP 36.2; O2SAT 93
--- NOTE | 2023-08-21 16:27 | HO.PM.IMPN ---
Subjective Subjective Date of Service: 08/21/23 Interval History: BCx with Group G strep, leg cellulitis,urine cultures -klebsiela. Review of Systems no fever,legs still red/swollen Review of Systems: Yes all other systems are reviewed and are negative Physical Exam Vital Signs: Vital Signs: Last Vital Signs Temp 97.2 F 08/21/23 15:41 Pulse 90 08/21/23 15:41 Resp 18 08/21/23 15:41 BP 130/82 08/21/23 15:41 Pulse Ox 93 08/21/23 15:41 O2 Del Method Room Air 08/21/23 15:41 O2 Flow Rate 2 08/19/23 20:15 BMI result Body Mass Index 58.7 Gen: in no acute distress Lungs: fair air entry, no rales or wheezing Heart: rrr,s1s2 heard. Abd: obese,soft, nt.nd.bs present. Ext: bilateral lymphedema, RLE + LLE with extensive dorsal erythema without purulence Skin: no cyanosis or edema . Neuro: alert and oriented x3, no focal findings Psych: appropriate affect Objective Data Active Medications Acetaminophen (Acetaminophen 325 Mg Tablet) 650 mg PO Q6H PRN PRN Reason: Pain, Mild (Pain Scale 1-3) Last Admin: 08/20/23 20:12 Dose: 650 mg Documented By: EVELYN Apixaban (Apixaban 5 Mg Tablet) 5 mg PO BID [facility] Last Admin: 08/21/23 08:13 Dose: 5 mg Documented By: LAM Bisacodyl (Bisacodyl 10 Mg Supp.Rect) 10 mg [place] DAILY PRN PRN Reason: Constipation Docusate Sodium (Docusate Sodium 100 Mg Capsule) 100 mg PO BID [facility] Last Admin: 08/21/23 08:13 Dose: 100 mg Documented By: LAM Duloxetine HCl (Duloxetine Hcl 60 Mg Capsule.Dr) 60 mg PO DAILY [facility] Last Admin: 08/21/23 08:13 Dose: 60 mg Documented By: LAM Famotidine (Famotidine 20 Mg Tablet) 20 mg PO BEDTIME [facility] Last Admin: 08/20/23 20:13 Dose: 20 mg Documented By: EVELYN Gabapentin (Gabapentin 100 Mg Capsule) 100 mg PO TID [facility] Last Admin: 08/21/23 14:30 Dose: 100 mg Documented By: JADE Guaifenesin (Guaifenesin 100 Mg/5 Ml Liquid) 10 ml PO Q4H PRN PRN Reason: Cough Ceftriaxone Sodium 1 gm/ (Sodium Chloride) 50 mls @ 100 mls/hr IV Q12H [facility] Last Infusion: 08/21/23 16:11 Dose: Infused Documented By: JADE Magnesium Hydroxide (Milk Of Magnesia 30 Ml Oral.Susp) 30 ml PO DAILY PRN PRN Reason: Constipation Melatonin (Melatonin 3 Mg Tablet) 6 mg PO BEDTIME PRN PRN Reason: Insomnia Ondansetron HCl (Ondansetron Hcl 4 Mg/2 Ml Vial) 4 mg IVPUSH Q8H PRN PRN Reason: Nausea and Vomiting Pharmacy Consult (Consult Rx Vancomycin Dosing) 1 each MISCELLANE DAILY PRN PRN Reason: Consult order Sodium Chloride (0.9 % Sodium Chloride Flush 3 Ml Syringe) 3 ml IVFLUSH QSHIFT [facility] Last Admin: 08/21/23 16:12 Dose: 3 ml Documented By: JADE Trazodone HCl (Trazodone Hcl 100 Mg Tablet) 100 mg PO BEDTIME [facility] Last Admin: 08/20/23 20:13 Dose: 100 mg Documented By: EVELYN Vitamin D (Cholecalciferol (Vitamin D3) 25 Mcg Tablet) 50 mcg PO DAILY [facility] Last Admin: 08/21/23 08:13 Dose: 50 mcg Documented By: DAMIANONOThom Labs 08/20/23 06:20 08/21/23 06:45 Labs: Laboratory Results - last 24 hr 08/20/23 08/21/23 19:06 06:45 Estim Creat Clear Calc 84.3 Estimated GFR > 60 Random Vancomycin 12.7 L Microbiology Microbiology Results: Microbiology 08/19/23 07:29 Blood Culture - Preliminary Blood - Venous No growth after 48 hours. 08/19/23 06:10 Blood Culture - Preliminary Blood - Venous No growth after 48 hours. 08/17/23 Unknown Urine Culture - Final Urine clean catch - Urine gu top Klebsiella pneumoniae Assessment and Plan (1) Streptococcal bacteremia: Status: Acute Plan Day 5: 78yo F LTC resident of [facility] with PMHx CHF, mood disorder, hx DVT on apixaban, lymphedema admitted for sepsis due to purulent cellulitis, found to be bacteremic sepsis due to cellulitis/group G streptococcal bacteremia: blood cultures 08/17 : 1/2:group G streptococcal bacteremia UA: positive for pyuria/bacteruria /micro hemtauria ,urine culture -gram neg caryl. repeat BCx 08/19. TTE 08/18: 1. Technically limited study despite use of contrast agent 2. Normal LV ejection fraction of 65-70% with mild LVH with pseudonormal filling pattern 3. Cardiac valve are not well visualized with normal cardiac valvular Dopplers 4. Vegetations cannot be conclusively ruled out on this study 5. Mildly dilated ascending aorta. Plan: seen By ID: Would give Ceftriaxone and can switch to po cephalosporin when improved for total 14 days likely. Echo was suboptimal and would do KANG only if patient acceptable risk as only low suspicion endocarditis hypoK- repleted and resolved. hx DVT- apixaban chronic HFpEF- hold furosemide for now morbid obesity- diet/exercise counseling mood disorder- continue duloxetine, trazodone neuropathy- continue gabapentin VTE ppx- apixaban dispo- eventual return to LTC In my clinical judgment, the patient requires continued inpatient hospitalization for the following reasons:so far little improvement -need IV ABX, bacteremia , may need KANG. Quality Stroke Does the patient have a stroke diagnosis?: No VTE Prior VTE?: No VTE Risk Level:: Medical - moderate - high VTE Device Contraindication: Treatment Not Indicated VTE Drug Contraindication: N/A - Med Ordered
[2023-08-21 18:55] VITALS: BP 128/61; PULSE 98; RESP 17; TEMP 36.4; O2SAT 95
[2023-08-21] MEDS: Famotidine 20 MG TABLET PO (19:44)
[2023-08-21] MEDS: traZODone HCL 100 MG TABLET PO (19:45)
[2023-08-22] MEDS: cefTRIAXone sodium 1 GM in 0.9 % Sodium Chloride 50 ML IV ×2 (02:42→14:12)
[2023-08-22 03:14] VITALS: BP 120/62; PULSE 70; RESP 17; TEMP 36.8; O2SAT 95
[2023-08-22 07:40] VITALS: BP 146/70; PULSE 81; RESP 18; TEMP 36.1; O2SAT 91
[2023-08-22] MEDS: Cholecalciferol (Vitamin D3) 25 MCG TABLET 50 MCG PO (08:29)
[2023-08-22] MEDS: Gabapentin 100 MG CAPSULE PO ×3 (08:29→20:12)
[2023-08-22] MEDS: DULoxetine HCl 60 MG CAPSULE.DR PO (08:29)
[2023-08-22] MEDS: Apixaban 5 MG TABLET PO ×2 (08:29→20:12)
[2023-08-22] MEDS: 0.9 % Sodium Chloride Flush 3 ML SYRINGE IVFLUSH ×3 (08:30→23:58)
[2023-08-22 09:10] LABS: Creatinine Clr Calc Pharmacy 91.9; Estimated Glomerular Filt Rate > 60
[2023-08-22] MEDS: Acetaminophen 325 MG TABLET 650 MG PO (09:28)
--- NOTE | 2023-08-22 10:28 | MHC.CM.PN ---
Addendum entered by Katie Spann RN 08/22/23 12:21: Received copy of HCP and contact information from [facility]: Gloria Morgan [phone] LM for HCP to call this CM. Original Note: EMR REVIEWED. PER MD ROUNDS NOT MEDICALLY CLEARED FOR DC. THIS CM REQUESTED UPDATED COPY OF HCP X2 ON 08/21 AND SENT ANOTHER REQUEST THIS AM. WILL CONTINUE TO REQUEST INFORMATION AND WILL COMMUNICATE WITH HCP ONCE RECEIVED.
--- NOTE | 2023-08-22 10:47 | P.CONCA_ITS ---
History of Present Illness History of Present Illness Date of Service: 08/22/23 Chief complaint: Fever Narrative: This is a cardiology consultation regarding question of KANG. Patient has been admitted with cellulitis and she apparently had group G strep bacteremia. Patient herself does not have any specific cardiac symptoms at this time. She denies any chest pain or shortness of breath or in fact anything cardiac sounding. Otherwise, she states she is feeling okay. Review of Systems 2 Review of Systems: Yes all other systems are reviewed and are negative Constitutional: Constitutional: Reports as per HPI and Reports no additional constitutional complaints Eyes: Eyes: Reports as per HPI and Denies no additional eye complaints ENT: Denies system reviewed and no additional complaints, except as documented and Reports as per HPI Cardiovascular: Cardiovascular: Reports as per HPI, Reports no additional cardiovascular complaints, Denies acrocyanosis, Denies cool extremities, Denies chest pain, Denies leg edema, Denies lightheadedness, Denies palpitations and Denies dyspnea Respiratory: Respiratory: Reports as per HPI, Denies no additional respiratory complaints and Denies dyspnea Gastrointestinal: Gastrointestinal: Reports as per HPI and Denies no additional gastrointestinal complaints Genitourinary: Genitourinary: Reports as per HPI Musculoskeletal: Musculoskeletal: Reports no additional musculoskeletal complaints and Reports as per HPI Integumentary/Breasts: Skin/Breast: Reports system reviewed and no additional complaints, except as docu Neurologic: Reports system reviewed and no additional complaints, except as documented and Reports as per HPI Psychiatric: Psychiatric: Reports no additional psychiatric complaints and Reports as per HPI Endocrine: Endocrine: Reports no additional endocrine complaints, Reports as per HPI and Denies palpitations Hematologic/Lymphatic: Hematologic/Lymphatic: Reports no additional hematologic/lymphatic complaints and Reports as per HPI Allergic/Immunologic: Allergic/Immunologic: Reports no additional allergic/immunologic complaints and Reports as per HPI PMF Past Medical History Medical History Obesity Chronic anticoagulation DVT (deep venous thrombosis) Lymphedema Mood disorder Congestive heart failure Family History Pertinent family history: No pertinent family history. Social History Social History Household Members: Other Housing: Residential Housing [facility] [place] Do you presently have visiting nurse or other home services: Yes Patient Tobacco Use Status: Never used Tobacco e-Cigarette/Vaping Use: Never Used Second Hand Smoke Exposure: No Advance Directives Date on File: 08/17/23 Meds Allergies Allergy/AdvReac Type Severity Reaction Status Date / Time aspirin [ASPIRIN] Allergy Unknown TURNS RED Verified 08/17/23 19:46 codeine [CODEINE] Allergy Unknown UNKNOWN Verified 08/17/23 19:46 nitrofurantoin Allergy Unknown UNKNOWN Verified 08/17/23 19:46 [NITROFURANTOIN] Sulfa (Sulfonamide Allergy Unknown UNKNOWN Verified 08/17/23 19:46 Antibiotics) [SULFA (SULFONAMIDE ANTIBIOTICS)] Aspirin Allergy Unknown Unknown Uncoded 08/17/23 19:46 aspirin Allergy Unknown Unknown Uncoded 08/17/23 19:46 Active Medications: Current Medications Acetaminophen (Acetaminophen 325 Mg Tablet) 650 mg PO Q6H PRN PRN Reason: Pain, Mild (Pain Scale 1-3) Last Admin: 08/22/23 09:28 Dose: 650 mg Apixaban (Apixaban 5 Mg Tablet) 5 mg PO BID [facility] Last Admin: 08/22/23 08:29 Dose: 5 mg Bisacodyl (Bisacodyl 10 Mg Supp.Rect) 10 mg [place] DAILY PRN PRN Reason: Constipation Docusate Sodium (Docusate Sodium 100 Mg Capsule) 100 mg PO BID [facility] Last Admin: 08/22/23 08:29 Dose: Not Given Duloxetine HCl (Duloxetine Hcl 60 Mg Capsule.Dr) 60 mg PO DAILY [facility] Last Admin: 08/22/23 08:29 Dose: 60 mg Famotidine (Famotidine 20 Mg Tablet) 20 mg PO BEDTIME [facility] Last Admin: 08/21/23 19:44 Dose: 20 mg Gabapentin (Gabapentin 100 Mg Capsule) 100 mg PO TID [facility] Last Admin: 08/22/23 08:29 Dose: 100 mg Guaifenesin (Guaifenesin 100 Mg/5 Ml Liquid) 10 ml PO Q4H PRN PRN Reason: Cough Ceftriaxone Sodium 1 gm/ (Sodium Chloride) 50 mls @ 100 mls/hr IV Q12H [facility] Last Infusion: 08/22/23 03:37 Dose: Infused Magnesium Hydroxide (Milk Of Magnesia 30 Ml Oral.Susp) 30 ml PO DAILY PRN PRN Reason: Constipation Melatonin (Melatonin 3 Mg Tablet) 6 mg PO BEDTIME PRN PRN Reason: Insomnia Ondansetron HCl (Ondansetron Hcl 4 Mg/2 Ml Vial) 4 mg IVPUSH Q8H PRN PRN Reason: Nausea and Vomiting Pharmacy Consult (Consult Rx Vancomycin Dosing) 1 each MISCELLANE DAILY PRN PRN Reason: Consult order Sodium Chloride (0.9 % Sodium Chloride Flush 3 Ml Syringe) 3 ml IVFLUSH QSHIFT [facility] Last Admin: 08/22/23 08:30 Dose: 3 ml Trazodone HCl (Trazodone Hcl 100 Mg Tablet) 100 mg PO BEDTIME [facility] Last Admin: 08/21/23 19:45 Dose: 100 mg Vitamin D (Cholecalciferol (Vitamin D3) 25 Mcg Tablet) 50 mcg PO DAILY [facility] Last Admin: 08/22/23 08:29 Dose: 50 mcg Home Medications Medication Instructions Recorded Confirmed Last Taken Type apixaban 2.5 mg tablet 2.5 mg PO BID 10/05/20 08/17/23 Unknown History diclofenac sodium 1 % topical gel 4 g topical Q6H PRN Pain (Scale 10/05/20 08/17/23 Unknown History Score 1-3) duloxetine 60 mg capsule,delayed 60 mg PO DAILY 10/05/20 08/17/23 Unknown History release famotidine 20 mg tablet 20 mg PO BEDTIME 10/05/20 08/17/23 Unknown History gabapentin 100 mg capsule 100 mg PO TID 10/05/20 08/17/23 Unknown History metoprolol tartrate 25 mg tablet 12.5 mg PO BID 10/05/20 08/17/23 Unknown History trazodone 100 mg tablet 100 mg PO BEDTIME 10/05/20 08/17/23 Unknown History acetaminophen 325 mg tablet 650 mg PO Q6H PRN Pain (Scale 08/17/23 08/17/23 Unknown History Score 1-3) bisacodyl 10 mg rectal suppository 10 mg RI DAILY PRN Constipation 08/17/23 08/17/23 Unknown History cholecalciferol (vitamin D3) 50 50 mcg PO DAILY 08/17/23 08/17/23 Unknown History mcg (2,000 unit) tablet docusate sodium 100 mg capsule 100 mg PO BID 08/17/23 08/17/23 Unknown History furosemide 40 mg tablet 40 mg PO BID 08/17/23 08/17/23 Unknown History guaifenesin 100 mg/5 mL oral liquid 200 mg PO Q4H PRN Cough 08/17/23 08/17/23 Unknown History magnesium hydroxide 400 mg/5 mL 30 ml PO DAILY PRN Constipation 08/17/23 08/17/23 Unknown History oral suspension (Milk of Magnesia) ondansetron HCl 4 mg tablet 4 mg PO Q4H PRN Nausea And Vomiting 08/17/23 08/17/23 Unknown History potassium chloride 20 mEq 40 meq PO DAILY 08/17/23 08/17/23 Unknown History tablet,extended release(part/cryst) (Klor-Con M) Physical Exam 2 Vital Signs: Vital Signs: Last Vital Signs Temp 96.9 F 08/22/23 07:40 Pulse 81 08/22/23 07:40 Resp 18 08/22/23 07:40 BP 146/70 H 08/22/23 07:40 Pulse Ox 91 L 08/22/23 07:40 O2 Del Method Room Air 08/22/23 07:40 O2 Flow Rate 2 08/19/23 20:15 BMI result Body Mass Index 58.7 Const: General: comfortable and no acute distress O rientation/consciousness: patient oriented x3 HEENT: Other: Unremarkable Head: Yes normal to inspection Neck: Neck: Yes normal visual inspection Chest: Chest palpation & inspection: normal inspection of the chest Resp: Auscultation: clear to auscultation bilaterally Cardio: Palpation: normal PMI Heart sounds: S1 normal heart sound present, S2 normal heart sound present, no gallops, no murmurs and no rubs GI: Palpation (GI): Soft to palpation Back/Spine/Pelvis: Other: unremarkable Skin: General skin exam: no rashes or lesions noted Neuro: General: patient oriented x3 Extrem: Other: Bilateral swollen and cellulitis legs. Psych: Mental Status: mental status grossly normal Objective Labs and Meds 08/20/23 06:20 08/22/23 08:44 Lab results: Laboratory Results - last 24 hr 08/22/23 08:44 Hold Purple Top SEE NOTE Creatinine 0.78 Estim Creat Clear Calc 91.9 Estimated GFR > 60 ECG Interpretation: EKG with sinus tachycardia at 114/Min; left anterior fascicular block and cannot exclude old anterolateral infarct but be from body habitus. Artifact in tracing. Assessment and Plan (1) Streptococcal bacteremia: Status: Acute (2) Sepsis due to cellulitis: Status: Acute Plan Laboratory data reviewed. Cultures also noted. Initially, blood culture positive for group G Streptococcus. However, repeat culture from the as well as -3 sets in total are all negative. Transthoracic echo was not of high quality. Per ID note, it does not appear that there is a very high suspicion for endocarditis. She will also be at high risk for the procedure as well as anesthesia mainly due to her body habitus and obesity. Hence we just discussed treating her conservatively and she states she would be very much willing to do that. In case her repeat cultures again come back positive or if there is suspicion for endocarditis, then we can readdress. Discussed with Dr. Benjamin. Procedures Date of Service Date of Service: 08/22/23
--- NOTE | 2023-08-22 14:01 | P.PNIM_ITS ---
Subjective Subjective Date of Service: 08/22/23 Interval History: BCx with Group G strep, leg cellulitis,urine cultures -klebsiela. Review of Systems legs still red/swollen-similar, small clear liquid blisters/skin Physical Exam 2 Vital Signs: Vital Signs: Last Vital Signs Temp 96.9 F 08/22/23 07:40 Pulse 81 08/22/23 07:40 Resp 18 08/22/23 07:40 BP 146/70 H 08/22/23 07:40 Pulse Ox 91 L 08/22/23 07:40 O2 Del Method Room Air 08/22/23 07:40 O2 Flow Rate 2 08/19/23 20:15 BMI result Body Mass Index 58.7 Gen: in no acute distress Lungs: fair air entry, no rales or wheezing Heart: rrr,s1s2 heard. Abd: obese,soft, nt.nd.bs present. Ext: bilateral lymphedema, RLE + LLE with extensive dorsal erythema without purulence Skin: no cyanosis or edema . Neuro: alert and oriented x3, no focal findings Psych: appropriate affect Objective Data Active Medications Acetaminophen (Acetaminophen 325 Mg Tablet) 650 mg PO Q6H PRN PRN Reason: Pain, Mild (Pain Scale 1-3) Last Admin: 08/22/23 09:28 Dose: 650 mg Documented By: SHELLY Apixaban (Apixaban 5 Mg Tablet) 5 mg PO BID [facility] Last Admin: 08/22/23 08:29 Dose: 5 mg Documented By: SHELLY Bisacodyl (Bisacodyl 10 Mg Supp.Rect) 10 mg [place] DAILY PRN PRN Reason: Constipation Docusate Sodium (Docusate Sodium 100 Mg Capsule) 100 mg PO BID [facility] Last Admin: 08/22/23 08:29 Dose: Not Given Documented By: SHELLY Non-Admin Reason: LOOSE STOOLS Duloxetine HCl (Duloxetine Hcl 60 Mg Capsule.) 60 mg PO DAILY [facility] Last Admin: 08/22/23 08:29 Dose: 60 mg Documented By: SHELLY Famotidine (Famotidine 20 Mg Tablet) 20 mg PO BEDTIME [facility] Last Admin: 08/21/23 19:44 Dose: 20 mg Documented By: ANOMI Gabapentin (Gabapentin 100 Mg Capsule) 100 mg PO TID [facility] Last Admin: 08/22/23 08:29 Dose: 100 mg Documented By: SHELLY Guaifenesin (Guaifenesin 100 Mg/5 Ml Liquid) 10 ml PO Q4H PRN PRN Reason: Cough Ceftriaxone Sodium 1 gm/ (Sodium Chloride) 50 mls @ 100 mls/hr IV Q12H [facility] Last Infusion: 08/22/23 03:37 Dose: Infused Documented By: NAOMI Magnesium Hydroxide (Milk Of Magnesia 30 Ml Oral.Susp) 30 ml PO DAILY PRN PRN Reason: Constipation Melatonin (Melatonin 3 Mg Tablet) 6 mg PO BEDTIME PRN PRN Reason: Insomnia Ondansetron HCl (Ondansetron Hcl 4 Mg/2 Ml Vial) 4 mg IVPUSH Q8H PRN PRN Reason: Nausea and Vomiting Pharmacy Consult (Consult Rx Vancomycin Dosing) 1 each MISCELLANE DAILY PRN PRN Reason: Consult order Sodium Chloride (0.9 % Sodium Chloride Flush 3 Ml Syringe) 3 ml IVFLUSH QSHIFT [facility] Last Admin: 08/22/23 08:30 Dose: 3 ml Documented By: SHELLY Trazodone HCl (Trazodone Hcl 100 Mg Tablet) 100 mg PO BEDTIME [facility] Last Admin: 08/21/23 19:45 Dose: 100 mg Documented By: NAOMI Vitamin D (Cholecalciferol (Vitamin D3) 25 Mcg Tablet) 50 mcg PO DAILY [facility] Last Admin: 08/22/23 08:29 Dose: 50 mcg Documented By: SHELLY Labs 08/20/23 06:20 08/22/23 08:44 Labs: Laboratory Results - last 24 hr 08/22/23 08:44 Hold Purple Top SEE NOTE Estim Creat Clear Calc 91.9 Estimated GFR > 60 Microbiology Microbiology Results: Microbiology 08/19/23 07:29 Blood Culture - Preliminary Blood - Venous No growth after 48 hours. Assessment and Plan (1) Streptococcal bacteremia: Status: Acute (2) Sepsis due to cellulitis: Status: Acute Plan Day 6: 78[facility] CHF, mood disorder, hx DVT on apixaban, lymphedema admitted for sepsis due to purulent cellulitis, found to be bacteremic sepsis due to cellulitis/group G streptococcal bacteremia: blood cultures 08/17 : 1/2:group G streptococcal bacteremia UA: positive for pyuria/bacteruria /micro hemtauria ,urine culture -gram neg caryl. repeat BCx 08/19. TTE 08/18: 1. Technically limited study despite use of contrast agent 2. Normal LV ejection fraction of 65-70% with mild LVH with pseudonormal filling pattern 3. Cardiac valve are not well visualized with normal cardiac valvular Dopplers 4. Vegetations cannot be conclusively ruled out on this study 5. Mildly dilated ascending aorta. Plan: seen By ID: Would give Ceftriaxone and can switch to po cephalosporin when improved for total 14 days likely. Echo was suboptimal and would do KANG only if patient acceptable risk as only low suspicion endocarditis hypoK- repleted and resolved. hx DVT- apixaban chronic HFpEF- hold furosemide for now morbid obesity- diet/exercise counseling mood disorder- continue duloxetine, trazodone neuropathy- continue gabapentin VTE ppx- apixaban dispo- eventual return to LTC In my clinical judgment, the patient requires continued inpatient hospitalization for the following reasons:so far little improvement -need IV ABX, bacteremia , may need KANG. Quality Stroke Does the patient have a stroke diagnosis?: No VTE Prior VTE?: No VTE Risk Level:: Medical - moderate - high VTE Device Contraindication: Treatment Not Indicated VTE Drug Contraindication: N/A - Med Ordered
[2023-08-22 16:00] VITALS: BP 139/61; PULSE 83; RESP 16; TEMP 36.8; O2SAT 93
[2023-08-22 19:42] LABS: Vancomycin Trough 8.2 mcg/mL (10.0-20.0)
[2023-08-22 20:00] VITALS: BP 150/67; PULSE 88; RESP 18; TEMP 36.4; O2SAT 95
[2023-08-22] MEDS: traZODone HCL 100 MG TABLET PO (20:12)
[2023-08-22] MEDS: Famotidine 20 MG TABLET PO (20:12)
[2023-08-22] MEDS: Docusate Sodium 100 MG CAPSULE PO (20:12)
[2023-08-23] MEDS: cefTRIAXone sodium 1 GM in 0.9 % Sodium Chloride 50 ML IV ×2 (01:22→13:50)
[2023-08-23 04:00] VITALS: BP 136/63; PULSE 73; RESP 20; TEMP 36.6; O2SAT 92
[2023-08-23 06:56] LABS: Creatinine Clr Calc Pharmacy 93.1; Estimated Glomerular Filt Rate > 60
[2023-08-23 07:49] VITALS: BP 151/70; PULSE 76; RESP 18; TEMP 36.6; O2SAT 93
[2023-08-23] MEDS: Apixaban 5 MG TABLET PO ×2 (08:53→19:50)
[2023-08-23] MEDS: DULoxetine HCl 60 MG CAPSULE.DR PO (08:53)
[2023-08-23] MEDS: Gabapentin 100 MG CAPSULE PO ×3 (08:53→19:49)
[2023-08-23] MEDS: 0.9 % Sodium Chloride Flush 3 ML SYRINGE IVFLUSH ×3 (08:53→19:50)
[2023-08-23] MEDS: Cholecalciferol (Vitamin D3) 25 MCG TABLET 50 MCG PO (08:53)
[2023-08-23 09:14] VITALS: BP 151/70; PULSE 76; O2SAT 93
--- NOTE | 2023-08-23 10:38 | MHC.CM.PN ---
EMR reviewed. Per MD rounds patient is not medically cleared for DC at this time. Updates sent to [facility], where patient will return to resume LTC on dc. CM will continue to follow.
--- NOTE | 2023-08-23 11:45 | HO.PM.IMPN ---
Subjective Subjective Date of Service: 08/23/23 Interval History: BCx with Group G strep, leg cellulitis,urine cultures -klebsiela. Review of Systems legs still red/swollen-little improving incomparison to yesterday,,some blister unroofed right lower leg. Physical Exam Vital Signs: Vital Signs: Last Vital Signs Temp 98 F 08/23/23 07:49 Pulse 76 08/23/23 09:14 Resp 18 08/23/23 07:49 BP 151/70 H 08/23/23 09:14 Pulse Ox 93 08/23/23 09:14 O2 Del Method Room Air 08/23/23 07:49 O2 Flow Rate 2 08/19/23 20:15 BMI result Body Mass Index 58.7 Gen: in no acute distress Lungs: fair air entry, no rales or wheezing Heart: rrr,s1s2 heard. Abd: obese,soft, nt.nd.bs present. Ext: bilateral lymphedema, RLE + LLE with extensive dorsal erythema without purulence Skin: no cyanosis or edema . Neuro: alert and oriented x3, no focal findings Psych: appropriate affect Objective Data Active Medications Acetaminophen (Acetaminophen 325 Mg Tablet) 650 mg PO Q6H PRN PRN Reason: Pain, Mild (Pain Scale 1-3) Last Admin: 08/22/23 09:28 Dose: 650 mg Documented By: SHELLY Apixaban (Apixaban 5 Mg Tablet) 5 mg PO BID [facility] Last Admin: 08/23/23 08:53 Dose: 5 mg Documented By: PAOLO Bisacodyl (Bisacodyl 10 Mg Supp.Rect) 10 mg [place] DAILY PRN PRN Reason: Constipation Docusate Sodium (Docusate Sodium 100 Mg Capsule) 100 mg PO BID [facility] Last Admin: 08/23/23 08:54 Dose: Not Given Documented By: PAOLO Non-Admin Reason: Patient Refused Duloxetine HCl (Duloxetine Hcl 60 Mg Capsule.) 60 mg PO DAILY [facility] Last Admin: 08/23/23 08:53 Dose: 60 mg Documented By: PAOLO Famotidine (Famotidine 20 Mg Tablet) 20 mg PO BEDTIME [facility] Last Admin: 08/22/23 20:12 Dose: 20 mg Documented By: EVELYN Gabapentin (Gabapentin 100 Mg Capsule) 100 mg PO TID [facility] Last Admin: 08/23/23 08:53 Dose: 100 mg Documented By: PAOLO Guaifenesin (Guaifenesin 100 Mg/5 Ml Liquid) 10 ml PO Q4H PRN PRN Reason: Cough Ceftriaxone Sodium 1 gm/ (Sodium Chloride) 50 mls @ 100 mls/hr IV Q12H [facility] Last Infusion: 08/23/23 01:55 Dose: Infused Documented By: PRITI Magnesium Hydroxide (Milk Of Magnesia 30 Ml Oral.Susp) 30 ml PO DAILY PRN PRN Reason: Constipation Melatonin (Melatonin 3 Mg Tablet) 6 mg PO BEDTIME PRN PRN Reason: Insomnia Ondansetron HCl (Ondansetron Hcl 4 Mg/2 Ml Vial) 4 mg IVPUSH Q8H PRN PRN Reason: Nausea and Vomiting Sodium Chloride (0.9 % Sodium Chloride Flush 3 Ml Syringe) 3 ml IVFLUSH QSHIFT [facility] Last Admin: 08/23/23 08:53 Dose: 3 ml Documented By: PAOLO Trazodone HCl (Trazodone Hcl 100 Mg Tablet) 100 mg PO BEDTIME [facility] Last Admin: 08/22/23 20:12 Dose: 100 mg Documented By: EVELYN Vitamin D (Cholecalciferol (Vitamin D3) 25 Mcg Tablet) 50 mcg PO DAILY [facility] Last Admin: 08/23/23 08:53 Dose: 50 mcg Documented By: PAOLO Labs 08/20/23 06:20 08/23/23 06:08 Labs: Laboratory Results - last 24 hr 08/22/23 08/23/23 19:02 06:08 Hold Purple Top SEE NOTE Estim Creat Clear Calc 93.1 Estimated GFR > 60 Vancomycin Trough 8.2 L Microbiology Microbiology Results: Microbiology 08/17/23 20:15 Blood Culture - Final Blood - Venous No growth after 5 days. Assessment and Plan (1) Streptococcal bacteremia: Status: Acute (2) Sepsis due to cellulitis: Status: Acute Plan Day 7: 78[facility], mood disorder, hx DVT on apixaban, lymphedema admitted for sepsis due to purulent cellulitis, found to be bacteremic sepsis due to cellulitis/group G streptococcal bacteremia: blood cultures 08/17 : 1/2:group G streptococcal bacteremia UA: positive for pyuria/bacteruria /micro hemtauria ,urine culture -gram neg caryl. repeat BCx 08/19. TTE 08/18: 1. Technically limited study despite use of contrast agent 2. Normal LV ejection fraction of 65-70% with mild LVH with pseudonormal filling pattern 3. Cardiac valve are not well visualized with normal cardiac valvular Dopplers 4. Vegetations cannot be conclusively ruled out on this study 5. Mildly dilated ascending aorta. Plan: seen By ID: Would give Ceftriaxone and can switch to po cephalosporin when improved for total 14 days likely. Echo was suboptimal and would do KANG . cardio recomended conservative management especially given repeat blood cultures neg and low risk for IE. will d/w Id-duration for antibiotics once improves. hypoK- repleted and resolved. hx DVT- apixaban chronic HFpEF- hold furosemide for now morbid obesity- diet/exercise counseling mood disorder- continue duloxetine, trazodone neuropathy- continue gabapentin VTE ppx- apixaban pt/ot dispo- eventual return to LTC In my clinical judgment, the patient requires continued inpatient hospitalization for the following reasons:so far little improvement -need IV ABX, bacteremia , may need KANG Quality Stroke Does the patient have a stroke diagnosis?: No VTE Prior VTE?: No VTE Risk Level:: Medical - moderate - high VTE Device Contraindication: Treatment Not Indicated VTE Drug Contraindication: N/A - Med Ordered
[2023-08-23 15:32] VITALS: BP 127/59; PULSE 85; RESP 18; TEMP 36.6; O2SAT 93
[2023-08-23 19:20] VITALS: BP 133/59; PULSE 86; RESP 20; TEMP 36.8; O2SAT 92
[2023-08-23] MEDS: Docusate Sodium 100 MG CAPSULE PO (19:49)
[2023-08-23] MEDS: traZODone HCL 100 MG TABLET PO (19:49)
[2023-08-23] MEDS: Melatonin 3 MG TABLET 6 MG PO (19:50)
[2023-08-23] MEDS: Famotidine 20 MG TABLET PO (19:50)
[2023-08-24] MEDS: cefTRIAXone sodium 1 GM in 0.9 % Sodium Chloride 50 ML IV (00:49)
[2023-08-24 03:15] VITALS: BP 129/60; PULSE 76; RESP 18; TEMP 35.9; O2SAT 93
[2023-08-24 05:46] LABS: Creatinine Clr Calc Pharmacy 91.9; Estimated Glomerular Filt Rate > 60
[2023-08-24 07:44] VITALS: BP 128/60; PULSE 73; RESP 16; TEMP 36.2; O2SAT 94
[2023-08-24] MEDS: Apixaban 5 MG TABLET PO ×2 (08:45→20:18)
[2023-08-24] MEDS: DULoxetine HCl 60 MG CAPSULE.DR PO (08:45)
[2023-08-24] MEDS: cefTRIAXone sodium 2 GM in 0.9 % Sodium Chloride 50 ML IV ×2 (08:45→20:18)
[2023-08-24] MEDS: 0.9 % Sodium Chloride Flush 3 ML SYRINGE IVFLUSH ×3 (08:45→20:20)
[2023-08-24] MEDS: Cholecalciferol (Vitamin D3) 25 MCG TABLET 50 MCG PO (08:45)
[2023-08-24] MEDS: Gabapentin 100 MG CAPSULE PO ×3 (08:45→20:18)
--- NOTE | 2023-08-24 11:09 | HO.PM.IMPN ---
Subjective Subjective Date of Service: 08/24/23 Interval History: BCx with Group G strep, leg cellulitis,urine cultures -klebsiela. Review of Systems legs still red/swollen-little improving incomparison to yesterday,some blister unroofed right lower leg. Physical Exam Vital Signs: Vital Signs: Last Vital Signs Temp 97.2 F 08/24/23 07:44 Pulse 73 08/24/23 07:44 Resp 16 08/24/23 07:44 BP 128/60 08/24/23 07:44 Pulse Ox 94 08/24/23 07:44 O2 Del Method Room Air 08/24/23 07:44 O2 Flow Rate 2 08/19/23 20:15 BMI result Body Mass Index 58.7 Gen: in no acute distress Lungs: fair air entry, no rales or wheezing Heart: rrr,s1s2 heard. Abd: obese,soft, nt.nd.bs present. Ext: bilateral lymphedema, RLE + LLE with extensive dorsal erythema without purulence Skin: no cyanosis or edema . Neuro: alert and oriented x3, no focal findings Psych: appropriate affect Objective Data Active Medications Acetaminophen (Acetaminophen 325 Mg Tablet) 650 mg PO Q6H PRN PRN Reason: Pain, Mild (Pain Scale 1-3) Last Admin: 08/22/23 09:28 Dose: 650 mg Documented By: SHELLY Apixaban (Apixaban 5 Mg Tablet) 5 mg PO BID [facility] Last Admin: 08/24/23 08:45 Dose: 5 mg Documented By: SHANNAN Bisacodyl (Bisacodyl 10 Mg Supp.Rect) 10 mg ME DAILY PRN PRN Reason: Constipation Docusate Sodium (Docusate Sodium 100 Mg Capsule) 100 mg PO BID [facility] Last Admin: 08/24/23 08:51 Dose: Not Given Documented By: SHANNAN Non-Admin Reason: pt refuses Duloxetine HCl (Duloxetine Hcl 60 Mg Capsule.) 60 mg PO DAILY [facility] Last Admin: 08/24/23 08:45 Dose: 60 mg Documented By: SHANNAN Famotidine (Famotidine 20 Mg Tablet) 20 mg PO BEDTIME [facility] Last Admin: 08/23/23 19:50 Dose: 20 mg Documented By: RAMON Gabapentin (Gabapentin 100 Mg Capsule) 100 mg PO TID [facility] Last Admin: 08/24/23 08:45 Dose: 100 mg Documented By: SHANNAN Guaifenesin (Guaifenesin 100 Mg/5 Ml Liquid) 10 ml PO Q4H PRN PRN Reason: Cough Ceftriaxone Sodium 2 gm/ (Sodium Chloride) 50 mls @ 100 mls/hr IV Q12H [facility] Last Infusion: 08/24/23 09:15 Dose: Infused Documented By: SHANNAN Magnesium Hydroxide (Milk Of Magnesia 30 Ml Oral.Susp) 30 ml PO DAILY PRN PRN Reason: Constipation Melatonin (Melatonin 3 Mg Tablet) 6 mg PO BEDTIME PRN PRN Reason: Insomnia Last Admin: 08/23/23 19:50 Dose: 6 mg Documented By: RAMON Ondansetron HCl (Ondansetron Hcl 4 Mg/2 Ml Vial) 4 mg IVPUSH Q8H PRN PRN Reason: Nausea and Vomiting Sodium Chloride (0.9 % Sodium Chloride Flush 3 Ml Syringe) 3 ml IVFLUSH QSHIFT [facility] Last Admin: 08/24/23 08:45 Dose: 3 ml Documented By: SHANNAN Trazodone HCl (Trazodone Hcl 100 Mg Tablet) 100 mg PO BEDTIME [facility] Last Admin: 08/23/23 19:49 Dose: 100 mg Documented By: RAMON Vitamin D (Cholecalciferol (Vitamin D3) 25 Mcg Tablet) 50 mcg PO DAILY [facility] Last Admin: 08/24/23 08:45 Dose: 50 mcg Documented By: SHANNAN Labs 08/20/23 06:20 08/24/23 05:20 Labs: Laboratory Results - last 24 hr 08/24/23 05:20 Hold Purple Top SEE NOTE Estim Creat Clear Calc 91.9 Estimated GFR > 60 Microbiology Microbiology Results: Microbiology 08/19/23 07:29 Blood Culture - Final Blood - Venous No growth after 5 days. 08/19/23 06:10 Blood Culture - Final Blood - Venous No growth after 5 days. Assessment and Plan (1) Streptococcal bacteremia: Status: Acute (2) Sepsis due to cellulitis: Status: Acute Plan Day 8: 78yo F LT resident of [facility] with PMHx CHF, mood disorder, hx DVT on apixaban, lymphedema admitted for sepsis due to purulent cellulitis, found to be bacteremic sepsis due to cellulitis/group G streptococcal bacteremia: blood cultures 08/17 : 1/2:group G streptococcal bacteremia UA: positive for pyuria/bacteruria /micro hemtauria ,urine culture -gram neg caryl. repeat BCx 08/19. TTE 08/18: 1. Technically limited study despite use of contrast agent 2. Normal LV ejection fraction of 65-70% with mild LVH with pseudonormal filling pattern 3. Cardiac valve are not well visualized with normal cardiac valvular Dopplers 4. Vegetations cannot be conclusively ruled out on this study 5. Mildly dilated ascending aorta. Plan: seen By ID: Would give Ceftriaxone and can switch to po cephalosporin when improved for total 14 days likely. Echo was suboptimal and would do KANG . cardio recomended conservative management especially given repeat blood cultures neg and low risk for IE. will d/w Id-duration for antibiotics once improves. hypoK- repleted and resolved. hx DVT- apixaban chronic HFpEF- hold furosemide for now morbid obesity- diet/exercise counseling mood disorder- continue duloxetine, trazodone neuropathy- continue gabapentin VTE ppx- apixaban pt/ot dispo- eventual return to LTC In my clinical judgment, the patient requires continued inpatient hospitalization for the following reasons:so far little improvement -need IV ABX, bacteremia Quality Stroke Does the patient have a stroke diagnosis?: No VTE Prior VTE?: No VTE Risk Level:: Medical - moderate - high VTE Device Contraindication: Treatment Not Indicated VTE Drug Contraindication: N/A - Med Ordered
[2023-08-24 15:21] VITALS: BP 145/65; PULSE 76; RESP 18; TEMP 36.6; O2SAT 94
[2023-08-24 19:14] VITALS: BP 128/62; PULSE 92; RESP 18; TEMP 36.5; O2SAT 92
[2023-08-24] MEDS: Melatonin 3 MG TABLET 6 MG PO (20:18)
[2023-08-24] MEDS: Docusate Sodium 100 MG CAPSULE PO (20:18)
[2023-08-24] MEDS: traZODone HCL 100 MG TABLET PO (20:18)
[2023-08-24] MEDS: Famotidine 20 MG TABLET PO (20:18)
[2023-08-25 03:14] VITALS: BP 139/63; PULSE 80; RESP 18; TEMP 37.1; O2SAT 91
[2023-08-25 05:58] LABS: Creatinine Clr Calc Pharmacy 95.5; Estimated Glomerular Filt Rate > 60
[2023-08-25 06:58] VITALS: BP 122/59; PULSE 77; RESP 17; TEMP 36.6; O2SAT 94
[2023-08-25] MEDS: cefTRIAXone sodium 2 GM in 0.9 % Sodium Chloride 50 ML IV ×2 (08:08→20:42)
[2023-08-25] MEDS: Gabapentin 100 MG CAPSULE PO ×3 (08:08→20:37)
[2023-08-25] MEDS: 0.9 % Sodium Chloride Flush 3 ML SYRINGE IVFLUSH ×3 (08:09→20:37)
[2023-08-25] MEDS: Cholecalciferol (Vitamin D3) 25 MCG TABLET 50 MCG PO (08:09)
[2023-08-25] MEDS: Apixaban 5 MG TABLET PO ×2 (08:09→20:37)
[2023-08-25] MEDS: DULoxetine HCl 60 MG CAPSULE.DR PO (08:09)
[2023-08-25 12:00] LABS: CDiff Gene PCR NEGATIVE (Negative)
[2023-08-25 12:19] LABS: Adenovirus F 40/41 Not Detected (Not Detect.); Astrovirus Not Detected (Not Detect.); Campylobacter Not Detected (Not Detect.); Cryptosporidium Not Detected (Not Detect.); Cyclospora cayetanensis Not Detected (Not Detect.); E. coli EAEC Not Detected (Not Detect.); E. coli EPEC Not Detected (Not Detect.); E. coli ETEC Not Detected (Not Detect.); E. coli STEC Not Detected (Not Detect.); Entamoeba histolytica Not Detected (Not Detect.); Giardia lamblia Not Detected (Not Detect.); Norovirus GI/GII Not Detected (Not Detect.); Plesiomonas shigelloides Not Detected (Not Detect.); Rotavirus A Not Detected (Not Detect.); Salmonella Not Detected (Not Detect.); Sapovirus Not Detected (Not Detect.); Shigella sp./EIEC Not Detected (Not Detect.); Vibrio Not Detected (Not Detect.); Vibrio Cholerae Not Detected (Not Detect.); Yersinia enterocolitica Not Detected (Not Detect.)
--- NOTE | 2023-08-25 13:26 | P.PNIM_ITS ---
Subjective Subjective Date of Service: 08/25/23 Interval History: BCx with Group G strep, leg cellulitis Review of Systems cellulitis area seems improving has diarrhae 2-3 times Physical Exam 2 Vital Signs: Vital Signs: Last Vital Signs Temp 98 F 08/25/23 06:58 Pulse 77 08/25/23 06:58 Resp 17 08/25/23 06:58 BP 122/59 L 08/25/23 06:58 Pulse Ox 94 08/25/23 06:58 O2 Del Method Room Air 08/25/23 06:58 O2 Flow Rate 2 08/19/23 20:15 BMI result Body Mass Index 58.7 Gen: in no acute distress Lungs: fair air entry, no rales or wheezing Heart: rrr,s1s2 heard. Abd: obese,soft, nt.nd.bs present. Ext: bilateral lymphedema,RLE + LLE with extensive dorsal erythema-somewhat improving and bluster area also less weepy Skin: no cyanosis or edema . Neuro: alert and oriented x3, no focal findings Psych: appropriate affect Objective Data Active Medications Acetaminophen (Acetaminophen 325 Mg Tablet) 650 mg PO Q6H PRN PRN Reason: Pain, Mild (Pain Scale 1-3) Last Admin: 08/22/23 09:28 Dose: 650 mg Documented By: SHELLY Apixaban (Apixaban 5 Mg Tablet) 5 mg PO BID [facility] Last Admin: 08/25/23 08:09 Dose: 5 mg Documented By: SHANNAN Bisacodyl (Bisacodyl 10 Mg Supp.Rect) 10 mg [place] DAILY PRN PRN Reason: Constipation Docusate Sodium (Docusate Sodium 100 Mg Capsule) 100 mg PO BID [facility] Last Admin: 08/25/23 08:12 Dose: Not Given Documented By: SHANNAN Non-Admin Reason: Patient Refused Duloxetine HCl (Duloxetine Hcl 60 Mg Capsule.) 60 mg PO DAILY [facility] Last Admin: 08/25/23 08:09 Dose: 60 mg Documented By: SHANNAN Famotidine (Famotidine 20 Mg Tablet) 20 mg PO BEDTIME [facility] Last Admin: 08/24/23 20:18 Dose: 20 mg Documented By: RAMON Gabapentin (Gabapentin 100 Mg Capsule) 100 mg PO TID [facility] Last Admin: 08/25/23 08:08 Dose: 100 mg Documented By: SHANNAN Guaifenesin (Guaifenesin 100 Mg/5 Ml Liquid) 10 ml PO Q4H PRN PRN Reason: Cough Ceftriaxone Sodium 2 gm/ (Sodium Chloride) 50 mls @ 100 mls/hr IV Q12H [facility] Last Infusion: 08/25/23 08:44 Dose: Infused Documented By: SHANNAN Magnesium Hydroxide (Milk Of Magnesia 30 Ml Oral.Susp) 30 ml PO DAILY PRN PRN Reason: Constipation Melatonin (Melatonin 3 Mg Tablet) 6 mg PO BEDTIME PRN PRN Reason: Insomnia Last Admin: 08/24/23 20:18 Dose: 6 mg Documented By: RAMON Ondansetron HCl (Ondansetron Hcl 4 Mg/2 Ml Vial) 4 mg IVPUSH Q8H PRN PRN Reason: Nausea and Vomiting Sodium Chloride (0.9 % Sodium Chloride Flush 3 Ml Syringe) 3 ml IVFLUSH QSHIFT [facility] Last Admin: 08/25/23 08:09 Dose: 3 ml Documented By: SHANNAN Trazodone HCl (Trazodone Hcl 100 Mg Tablet) 100 mg PO BEDTIME [facility] Last Admin: 08/24/23 20:18 Dose: 100 mg Documented By: RAMON Vitamin D (Cholecalciferol (Vitamin D3) 25 Mcg Tablet) 50 mcg PO DAILY [facility] Last Admin: 08/25/23 08:09 Dose: 50 mcg Documented By: SHANNAN Labs 08/20/23 06:20 08/25/23 05:29 Labs: Laboratory Results - last 24 hr 08/25/23 08/25/23 05:29 09:30 Hold Purple Top SEE NOTE Estim Creat Clear Calc 95.5 Estimated GFR > 60 Stl C. cayetanensis PCR Not Detected Stool Rotavirus A PCR Not Detected Stl Adenov F 40/41 PCR Not Detected Stool Astrovirus (PCR) Not Detected Stool Campylobacter PCR Not Detected Stool Cryptosporidium PCR Not Detected Stl Sh Tox Pr E STEC PCR Not Detected Stool E coli O157 PCR Not applicable Stl Enterotoxigenic E PCR Not Detected Stool EPEC (PCR) Not Detected Stool EAEC (PCR) Not Detected Stl E. histolytica PCR Not Detected Stool Giardia Lamblia PCR Not Detected Stl P. shigelloides PCR Not Detected Stool Salmonella PCR Not Detected Stool Sapovirus (PCR) Not Detected Stl Shigella/EIEC PCR Not Detected St Y.enterocolitica PCR Not Detected Stool Vibrio (PCR) Not Detected Stl Vibrio cholerae PCR Not Detected Stl Norovirus GI/GII PCR Not Detected C. difficile Tox B Gene NEGATIVE Microbiology Microbiology Results: Microbiology 08/19/23 07:29 Blood Culture - Final Blood - Venous No growth after 5 days. Assessment and Plan (1) Streptococcal bacteremia: Status: Acute Plan Day 9: 78[facility] PMHx CHF, mood disorder, hx DVT on apixaban, lymphedema admitted for sepsis due to purulent cellulitis, found to be bacteremic sepsis due to cellulitis/group G streptococcal bacteremia: blood cultures 08/17 : 1/2:group G streptococcal bacteremia UA: positive for pyuria/bacteruria /micro hemtauria ,urine culture -gram neg caryl. repeat BCx 08/19. TTE 08/18: 1. Technically limited study despite use of contrast agent 2. Normal LV ejection fraction of 65-70% with mild LVH with pseudonormal filling pattern 3. Cardiac valve are not well visualized with normal cardiac valvular Dopplers 4. Vegetations cannot be conclusively ruled out on this study 5. Mildly dilated ascending aorta. Plan: seen By ID: Would give Ceftriaxone and can switch to po cephalosporin when improved for total 14 days likely. Echo was suboptimal and would do KANG . cardio recomended conservative management especially given repeat blood cultures neg and low risk for IE. will d/w Id-duration for antibiotics once improves. hypoK- repleted and resolved. hx DVT- apixaban chronic HFpEF- hold furosemide for now morbid obesity- diet/exercise counseling mood disorder- continue duloxetine, trazodone neuropathy- continue gabapentin Diarrahe : added c diff ,gip panel ,if neg ,will add loperamide. VTE ppx- apixaban pt/ot dispo- eventual return to LTC In my clinical judgment, the patient requires continued inpatient hospitalization for the following reasons:so far little improvement -need IV ABX, bacteremia Quality Stroke Does the patient have a stroke diagnosis?: No VTE Prior VTE?: No VTE Risk Level:: Medical - moderate - high VTE Device Contraindication: Treatment Not Indicated VTE Drug Contraindication: N/A - Med Ordered
[2023-08-25] MEDS: Loperamide HCl 2 MG CAPSULE PO ×2 (14:46→20:37)
[2023-08-25 15:09] VITALS: BP 129/65; PULSE 77; RESP 16; TEMP 36.2; O2SAT 95
[2023-08-25 19:35] VITALS: BP 149/64; PULSE 86; RESP 17; TEMP 36; O2SAT 94
[2023-08-25] MEDS: traZODone HCL 100 MG TABLET PO (20:37)
[2023-08-25] MEDS: Famotidine 20 MG TABLET PO (20:37)
[2023-08-25] MEDS: Melatonin 3 MG TABLET 6 MG PO (20:37)
[2023-08-26 03:20] VITALS: BP 152/65; PULSE 64; RESP 19; TEMP 36.4; O2SAT 93
[2023-08-26 05:59] LABS: Creatinine Clr Calc Pharmacy 94.3; Estimated Glomerular Filt Rate > 60
[2023-08-26 07:39] VITALS: BP 138/61; PULSE 86; RESP 16; TEMP 36.2; O2SAT 94
[2023-08-26] MEDS: Loperamide HCl 2 MG CAPSULE PO ×3 (08:40→20:08)
[2023-08-26] MEDS: cefTRIAXone sodium 2 GM in 0.9 % Sodium Chloride 50 ML IV ×2 (08:40→20:04)
[2023-08-26] MEDS: DULoxetine HCl 60 MG CAPSULE.DR PO (08:40)
[2023-08-26] MEDS: Cholecalciferol (Vitamin D3) 25 MCG TABLET 50 MCG PO (08:40)
[2023-08-26] MEDS: Apixaban 5 MG TABLET PO ×2 (08:41→20:09)
[2023-08-26] MEDS: Gabapentin 100 MG CAPSULE PO ×3 (08:41→20:08)
[2023-08-26] MEDS: 0.9 % Sodium Chloride Flush 3 ML SYRINGE IVFLUSH ×3 (08:44→20:09)
--- NOTE | 2023-08-26 14:26 | HO.PM.IMPN ---
Subjective Subjective Date of Service: 08/26/23 Interval History: diarrhae Review of Systems seems similar diarrhea hernandez no fever Physical Exam Vital Signs: Vital Signs: Last Vital Signs Temp 97.1 F 08/26/23 07:39 Pulse 86 08/26/23 07:39 Resp 16 08/26/23 07:39 BP 138/61 08/26/23 07:39 Pulse Ox 94 08/26/23 07:39 O2 Del Method Room Air 08/26/23 07:39 O2 Flow Rate 2 08/19/23 20:15 BMI result Body Mass Index 58.7 Gen: in no acute distress Lungs: fair air entry, no rales or wheezing Heart: rrr,s1s2 heard. Abd: obese,soft, nt.nd.bs present. Ext: bilateral lymphedema,RLE + LLE with extensive dorsal erythema-somewhat improving and bluster area also less weepy Skin: no cyanosis or edema . Neuro: alert and oriented x3, no focal findings Objective Data Active Medications Acetaminophen (Acetaminophen 325 Mg Tablet) 650 mg PO Q6H PRN PRN Reason: Pain, Mild (Pain Scale 1-3) Last Admin: 08/22/23 09:28 Dose: 650 mg Documented By: SHELLY Apixaban (Apixaban 5 Mg Tablet) 5 mg PO BID [facility] Last Admin: 08/26/23 08:41 Dose: 5 mg Documented By: SHANNAN Bisacodyl (Bisacodyl 10 Mg Supp.Rect) 10 mg [place] DAILY PRN PRN Reason: Constipation Docusate Sodium (Docusate Sodium 100 Mg Capsule) 100 mg PO BID [facility] Last Admin: 08/26/23 08:41 Dose: Not Given Documented By: SHANNAN Non-Admin Reason: diarrhea Duloxetine HCl (Duloxetine Hcl 60 Mg Capsule.Dr) 60 mg PO DAILY [facility] Last Admin: 08/26/23 08:40 Dose: 60 mg Documented By: SHANNAN Famotidine (Famotidine 20 Mg Tablet) 20 mg PO BEDTIME [facility] Last Admin: 08/25/23 20:37 Dose: 20 mg Documented By: RAMON Gabapentin (Gabapentin 100 Mg Capsule) 100 mg PO TID [facility] Last Admin: 08/26/23 08:41 Dose: 100 mg Documented By: SHANNAN Guaifenesin (Guaifenesin 100 Mg/5 Ml Liquid) 10 ml PO Q4H PRN PRN Reason: Cough Ceftriaxone Sodium 2 gm/ (Sodium Chloride) 50 mls @ 100 mls/hr IV Q12H [facility] Last Infusion: 08/26/23 09:10 Dose: Infused Documented By: SHANNAN Loperamide HCl (Loperamide Hcl 2 Mg Capsule) 2 mg PO Q4H PRN PRN Reason: Diarrhea Last Admin: 08/26/23 08:40 Dose: 2 mg Documented By: SHANNAN Magnesium Hydroxide (Milk Of Magnesia 30 Ml Oral.Susp) 30 ml PO DAILY PRN PRN Reason: Constipation Melatonin (Melatonin 3 Mg Tablet) 6 mg PO BEDTIME PRN PRN Reason: Insomnia Last Admin: 08/25/23 20:37 Dose: 6 mg Documented By: RAMON Ondansetron HCl (Ondansetron Hcl 4 Mg/2 Ml Vial) 4 mg IVPUSH Q8H PRN PRN Reason: Nausea and Vomiting Sodium Chloride (0.9 % Sodium Chloride Flush 3 Ml Syringe) 3 ml IVFLUSH QSHIFT [facility] Last Admin: 08/26/23 08:44 Dose: 3 ml Documented By: SHANNAN Trazodone HCl (Trazodone Hcl 100 Mg Tablet) 100 mg PO BEDTIME [facility] Last Admin: 08/25/23 20:37 Dose: 100 mg Documented By: RAMON Vitamin D (Cholecalciferol (Vitamin D3) 25 Mcg Tablet) 50 mcg PO DAILY [facility] Last Admin: 08/26/23 08:40 Dose: 50 mcg Documented By: SHANNAN Labs 08/20/23 06:20 08/26/23 05:20 Labs: Laboratory Results - last 24 hr 08/26/23 05:20 Hold Purple Top SEE NOTE Estim Creat Clear Calc 94.3 Estimated GFR > 60 Assessment and Plan (1) Streptococcal bacteremia: Status: Acute Plan Day 10: 78[facility] CHF, mood disorder, hx DVT on apixaban, lymphedema admitted for sepsis due to purulent cellulitis, found to be bacteremic sepsis due to cellulitis/group G streptococcal bacteremia: blood cultures 08/17 : 1/2:group G streptococcal bacteremia UA: positive for pyuria/bacteruria /micro hemtauria ,urine culture -gram neg caryl. repeat BCx 08/19. TTE 08/18: 1. Technically limited study despite use of contrast agent 2. Normal LV ejection fraction of 65-70% with mild LVH with pseudonormal filling pattern 3. Cardiac valve are not well visualized with normal cardiac valvular Dopplers 4. Vegetations cannot be conclusively ruled out on this study 5. Mildly dilated ascending aorta. Plan: seen By ID: Would give Ceftriaxone and can switch to po cephalosporin when improved for total 14 days likely. Echo was suboptimal and would do KANG . cardio recomended conservative management especially given repeat blood cultures neg and low risk for IE. will d/w Id-duration for antibiotics once improves. hypoK- repleted and resolved. hx DVT- apixaban chronic HFpEF- hold furosemide for now morbid obesity- diet/exercise counseling mood disorder- continue duloxetine, trazodone neuropathy- continue gabapentin Diarrahe : added c diff ,gip panel ,if neg ,added loperamide. VTE ppx- apixaban pt/ot dispo- eventual return to LTC In my clinical judgment, the patient requires continued inpatient hospitalization for the following reasons:so far little improvement -need IV ABX, bacteremia Quality Stroke Does the patient have a stroke diagnosis?: No VTE Prior VTE?: No VTE Risk Level:: Medical - moderate - high VTE Device Contraindication: Treatment Not Indicated VTE Drug Contraindication: N/A - Med Ordered
[2023-08-26 16:00] VITALS: BP 139/65; PULSE 91; RESP 18; TEMP 37; O2SAT 91
[2023-08-26] MEDS: Acetaminophen 325 MG TABLET 650 MG PO (17:22)
[2023-08-26 19:37] VITALS: BP 158/67; PULSE 91; RESP 18; TEMP 37.2; O2SAT 90
[2023-08-26] MEDS: Famotidine 20 MG TABLET PO (20:08)
[2023-08-26] MEDS: traZODone HCL 100 MG TABLET PO (20:08)
[2023-08-26] MEDS: Melatonin 3 MG TABLET 6 MG PO (20:08)
[2023-08-27 03:07] VITALS: BP 139/63; PULSE 81; RESP 18; TEMP 36.2; O2SAT 91
[2023-08-27 07:18] LABS: Creatinine Clr Calc Pharmacy 96.8; Estimated Glomerular Filt Rate > 60
[2023-08-27 07:44] VITALS: BP 152/68; PULSE 79; RESP 16; TEMP 36.6; O2SAT 96
[2023-08-27] MEDS: cefTRIAXone sodium 2 GM in 0.9 % Sodium Chloride 50 ML IV (09:14)
[2023-08-27] MEDS: Cholecalciferol (Vitamin D3) 25 MCG TABLET 50 MCG PO (09:18)
[2023-08-27] MEDS: DULoxetine HCl 60 MG CAPSULE.DR PO (09:18)
[2023-08-27] MEDS: Apixaban 5 MG TABLET PO (09:18)
[2023-08-27] MEDS: Acetaminophen 325 MG TABLET 650 MG PO (09:19)
[2023-08-27] MEDS: Gabapentin 100 MG CAPSULE PO (09:19)
[2023-08-27] MEDS: 0.9 % Sodium Chloride Flush 3 ML SYRINGE IVFLUSH (09:19)
[2023-08-27] MEDS: Loperamide HCl 2 MG CAPSULE PO (09:19)
--- NOTE | 2023-08-27 11:39 | P.DS_ITS ---
DS: Providers Provider Date of Service: 08/27/23 Date of admission: 08/17/23 21:32 Date of discharge: 08/27/23 Primary care physician: Zunilda Watts MD Consults: 08/18/23 09:14 Consult to Wound Care Routine Reason for consultation: avi LE cellulitis 08/19/23 10:06 Consult to Infectious Diseases Routine Consulting Provider: [facility] Infectious Disease Reason for consultation: group G strep bactermia 08/20/23 10:36 Consult to Wound Care Routine Reason for consultation: Leg oozing 08/22/23 07:34 Consult to Cardiology Routine Consulting Provider: [facility] Cardiovascular Services Reason for consultation: strep bacteremia-TTE suboptimal /need KANG Has provider been notified: No DS: Diagnosis Discharge Diagnosis (1) Streptococcal bacteremia: Status: Acute (2) Sepsis due to cellulitis: Status: Acute (3) DVT (deep venous thrombosis): Status: Acute DS: Summary Hospital Course Hospital Course: 78-year-old female with pertinent history of congestive heart failure, unspecified ejection fraction, mood disorder, history of DVT on anticoagulation, lymphedema who presents to the emergency department for evaluation of fevers. Patient states she has been having 1 day of fever, documented temperature. Also has been having associated chills. No nausea, vomiting, chest discomfort, pal pitations, shortness of breath, cough, diarrhea, dysuria. Does not know if she has had a history of cellulitis. Admits red, warm right lower extremity. Also noticed intermittent purulent foul-smelling drainage. She is compliant with home medications Hospital Course Admitted to general medical floor and started on ceftriaxone for cellulitis. She continued to improve over the next several days. Urine culture grew out Klebsiella and 1/2 blood cultures group G strep. She was seen in consultation by ID and completed 5 days of ceftriaxone can be discharged on oral Ceftin to complete her course. At this point time she is medically acceptable for return to long-term care Time Attestation Discharge coordination time: Greater than 30 minutes Quality: Safe Use of Opioids Does Pt have an Active Cancer Diagnosis on the Problem List?: No Quality: Stroke Does the patient have a stroke diagnosis?: No Physical Exam Vital Signs: Vital Signs: Last Vital Signs Temp 97.8 F 08/27/23 07:44 Pulse 79 08/27/23 07:44 Resp 16 01/02/24 07:44 BP 152/68 H 08/27/23 07:44 Pulse Ox 96 08/27/23 07:44 O2 Del Method Room Air 08/27/23 07:44 O2 Flow Rate 2 08/19/23 20:15 BMI result Body Mass Index 58.7 Const: Other: Awake alert acute distress Resp: Other: Clear to auscultation bilaterally no rales rhonchi or wheezes Cardio: Other: No S4; S1-S2; no S3 murmurs rubs or gallops GI: Other: Soft nontender nondistended normoactive bowel sounds Extrem: Other: No edema bilaterally DS: Data Data Completed and Pending Labs on day of discharge: Laboratory Results - last 24 hr 08/27/23 05:39 Hold Purple Top SEE NOTE Creatinine 0.74 Estim Creat Clear Calc 96.8 Estimated GFR > 60 Discharge Plan Discharge Anticipated Discharge Date/Time: 08/27/23 11:32 Patient Disposition: Xfer [facility] Discharge Diagnosis: Sepsis due to cellulitis right lower extremity cellulitis Referrals: Zunilda Watts MD [Primary Care Provider] - 1 Week Discharge Medications: New cefuroxime axetil 500 mg tablet 500 mg PO BID 14 Days Qty: 28 0RF Continued furosemide 40 mg tablet 40 mg PO BID acetaminophen 325 mg Tablet 650 mg PO Q6H PRN (Reason: Pain (Scale Score 1-3)) ondansetron HCl 4 mg Tablet 4 mg PO Q4H PRN (Reason: Nausea And Vomiting) guaifenesin 100 mg/5 mL Liquid 200 mg PO Q4H PRN (Reason: Cough) potassium chloride [Klor-Con M20] 20 mEq Tablet,Er Particles/Crystals 40 meq PO DAILY magnesium hydroxide [Milk of Magnesia] 400 mg/5 mL Suspension 30 ml PO DAILY PRN (Reason: Constipation) bisacodyl 10 mg Suppository 10 mg [place] DAILY PRN (Reason: Constipation) docusate sodium 100 mg Capsule 100 mg PO BID cholecalciferol (vitamin D3) 50 mcg (2,000 unit) Tablet 50 mcg PO DAILY metoprolol tartrate 25 mg tablet 12.5 mg PO BID diclofenac sodium 1 % gel 4 g topical Q6H PRN (Reason: Pain (Scale Score 1-3)) duloxetine 60 mg capsule,delayed release(DR/EC) 60 mg PO DAILY famotidine 20 mg tablet 20 mg PO BEDTIME trazodone 100 mg tablet 100 mg PO BEDTIME gabapentin 100 mg capsule 100 mg PO TID Discontinued Eliquis 2.5 mg tablet 2.5 mg PO BID Discharge Orders: Discharge Order (Routine); Ordered 08/27/23 Ordered By: Jae Gutierrez Diet: Advance to usual diet Activity on Discharge: As tolerated Stand Alone Forms: Patient Portal Discharge page Care Plan Goals: Resume all pre-hospital medications and therapies Health Concerns: Ceftin 500 mg twice daily for 14 days has been added to your regimen Plan of Treatment: Further plans as per receiving facility Assessment: See discharge summary
--- NOTE | 2023-08-27 12:18 | MHC.CM.PN ---
DP: PT HAS BEEN MEDICALLY CLEARED FOR DC BACK TO [facility]UME [facility]. HCP [facility] UPDATED VIA TELEPHONE MESSAGE . CENTER UPDATED. IMM ADDRESSED. BLS TRANSPORT BOOKED FOR 12 NOON VIA [facility].
== END 2023-08-27 12:11 | DRG 872 ==
LOC: HO.ED 20:03 → HO.EDOVER 21:50 → HO.S3 22:31
PROVIDERS: Family Medicine; Internal Medicine; Physician Assistant; Physician Assistant Medical; Admitting Provider Student in an Organized Health Care Education/Training Program; Emergency Provider Emergency Medicine; PCP Internal Medicine; Visit Provider Hospitalist
DX: A40.8 Other streptococcal sepsis (principal); L03.115 Cellulitis of right lower limb; E87.21 Acute metabolic acidosis; I50.32 Chronic diastolic (congestive) heart failure; Z68.43 Body mass index [BMI] 50.0-59.9, adult; I89.0 Lymphedema, not elsewhere classified; G62.9 Polyneuropathy, unspecified; E66.01 Morbid (severe) obesity due to excess calories; E87.6 Hypokalemia; Z86.718 Personal history of other venous thrombosis and embolism; Z20.822 Contact with and (suspected) exposure to COVID-19; Z79.01 Long term (current) use of anticoagulants; Z79.899 Other long term (current) drug therapy
CPT/HCPCS: 0241U; 36415; 71045; 73502; 73590; 80048; 80053; 80202; 81001; 82565; 83036; 83605; 83735; 83880; 84484; 85007; 85025; 85027; 85652; 86140; 87040; 87086; 87088; 87147; 87186; 87205; 87493; 87507; 93005; 93306; 93970; 94640; 97161; 97165; 99285; J0131; J0692; J0696; J2543; J3370; J3371; Q9957

== ENCOUNTER → 2023-08-17 18:56 | Outpatient (BNV) | payer MEDICARE, MEDICAID, SELFPAY | PROVIDERS: Admitting Provider Student in an Organized Health Care Education/Training Program; Emergency Provider Emergency Medicine; PCP Internal Medicine; Visit Provider Internal Medicine Cardiovascular Disease | DX: R00.0 Tachycardia, unspecified (principal) | CPT/HCPCS: 93010 ==

== ENCOUNTER 2023-08-17 21:32 | Outpatient (BNV) | payer MEDICARE, MEDICAID, SELFPAY | END 2023-08-18 07:00 | PROVIDERS: Admitting Provider Student in an Organized Health Care Education/Training Program; Emergency Provider Emergency Medicine; PCP Internal Medicine; Visit Provider Internal Medicine Cardiovascular Disease | DX: R78.81 Bacteremia (principal); B95.5 Unspecified streptococcus as the cause of diseases classified elsewhere | CPT/HCPCS: 93306 ==

== ENCOUNTER → 2023-08-17 21:32 | Outpatient (BNV) | payer MEDICARE, MEDICAID, SELFPAY | PROVIDERS: Admitting Provider Student in an Organized Health Care Education/Training Program; Emergency Provider Emergency Medicine; PCP Internal Medicine; Visit Provider Internal Medicine | DX: R78.81 Bacteremia (principal); A41.9 Sepsis, unspecified organism; B95.5 Unspecified streptococcus as the cause of diseases classified elsewhere; L03.90 Cellulitis, unspecified; I50.9 Heart failure, unspecified | CPT/HCPCS: 99222 ==

== ENCOUNTER → 2023-08-17 21:32 | Outpatient (BNV) | payer MEDICARE, MEDICAID, SELFPAY | PROVIDERS: Admitting Provider Student in an Organized Health Care Education/Training Program; Emergency Provider Emergency Medicine; PCP Internal Medicine; Visit Provider Student in an Organized Health Care Education/Training Program | DX: A41.9 Sepsis, unspecified organism (principal); B95.5 Unspecified streptococcus as the cause of diseases classified elsewhere; L03.90 Cellulitis, unspecified; I82.409 Acute embolism and thrombosis of unspecified deep veins of unspecified lower extremity | CPT/HCPCS: 99222; 99232; 99239 ==

== ENCOUNTER → 2023-08-17 21:32 | Outpatient (BNV) | payer MEDICARE, MEDICAID, SELFPAY | PROVIDERS: Admitting Provider Student in an Organized Health Care Education/Training Program; Emergency Provider Emergency Medicine; PCP Internal Medicine; Visit Provider Internal Medicine | DX: R78.81 Bacteremia (principal); A41.9 Sepsis, unspecified organism; B95.5 Unspecified streptococcus as the cause of diseases classified elsewhere; L03.90 Cellulitis, unspecified | CPT/HCPCS: 99223 ==

== ENCOUNTER 2023-09-11 15:18 | Outpatient (AMB) | payer MEDICARE, MEDICAID, SELFPAY ==
[2023-09-11 15:21] VITALS: BP 121/56; PULSE 80; TEMP 36.9
--- NOTE | 2023-09-11 15:21 | A.OFFVIS_ITS ---
Intake Vital Signs 3 09/11/23 15:21 BP 121/56 L Blood Pressure Location Rt brachial Position Semi Colmenares's Pulse 80 Temp 98.5 F Temp Source Oral Intake Visit Reasons: Ref.[facility],Leg Infecction Allergies aspirin [ASPIRIN] Allergy (Unknown, Verified 09/11/23 15:22) TURNS RED codeine [CODEINE] Allergy (Unknown, Verified 09/11/23 15:22) UNKNOWN nitrofurantoin [NITROFURANTOIN] Allergy (Unknown, Verified 09/11/23 15:22) UNKNOWN Sulfa (Sulfonamide Antibiotics) [SULFA (SULFONAMIDE ANTIBIOTICS)] Allergy (Unknown, Verified 09/11/23 15:22) UNKNOWN Aspirin Allergy (Unknown, Uncoded 08/17/23 19:46) Unknown aspirin Allergy (Unknown, Uncoded 08/17/23 19:46) Unknown HPI Ref.[facility],Leg Infecction 2 HPI0 Details She is here for followup Group G strep bacteremia. She has been taking Ceftriaxone and has no further complaints. She has no complaints. She has resolving lymphedema. [facility] Medical History (Updated 09/13/23 @ 15:36 by Anabell Tang MD) Cellulitis and abscess of lower extremity Group A streptococcal infection Obesity Chronic anticoagulation DVT (deep venous thrombosis) Lymphedema Mood disorder Congestive heart failure Social History Household Members: Other Housing: Group Home Housing Other:: [facility] [place] Do you presently have visiting nurse or other home services: Yes Patient Tobacco Use Status: Never used Tobacco e-Cigarette/Vaping Use: Never Used Second Hand Smoke Exposure: No Advance Directives Date on File: 08/17/23 Review of Systems Const All systems reviewed & are unremarkable except as noted in HPI and below Physical Exam Vital Signs: Last Vital Signs Temp 98.5 F 09/11/23 15:21 Pulse 80 09/11/23 15:21 BP 121/56 L 09/11/23 15:21 Const Other: General: cooperative Orientation/consciousness: patient oriented x3 HEENT Head: Yes normal to inspection Mouth: Normal oral and palatal mucosa present Eyes General: appearance normal, both eyes and all related structures Pupils: Equal, round and reactive pupils present Resp Effort & Inspection: normal respiratory effort Cardio Rate: regular rate Rhythm: regular rhythm GI Palpation (GI): Soft to palpation and nontender General: Yes no CVA tenderness Back/Spine/Pelvis Back: no CVA tenderness Skin General skin exam: no rashes or lesions noted Neuro General: patient oriented x3 Cranial nerves: Yes CN's II-XII intact bilaterally and Yes Equal, round and reactive pupils present Extrem Other: improving redness Psych Appearance: grossly normal Assessment & Plan Assessment & Plan (1) Lymphedema: Comment: No further abscess areas Skin is improving Code(s): I89.0 - Lymphedema, not elsewhere classified Plan: po PCN V correction She is written for po PCN V 250 bid Continue and see in six months. (2) DVT (deep venous thrombosis): Code(s): I82.409 - Acute embolism and thrombosis of unspecified deep veins of unspecified lower extremity Plan: per plan (3) Group A streptococcal infection: Code(s): B95.0 - Streptococcus, group A, as the cause of diseases classified elsewhere Plan: continue plan (4) Cellulitis and abscess of lower extremity: Code(s): L03.119 - Cellulitis of unspecified part of limb; L02.419 - Cutaneous abscess of limb, unspecified Plan: per above Medications: New 2 penicillin V potassium 250 mg PO BID 30 days 60 tabs 5RF Coding Level of Care Code Est Pt Level 3 (53313) Diagnoses Lymphedema I89.0 DVT (deep venous thrombosis) I82.409 Group A streptococcal infection B95.0 Cellulitis and abscess of lower extremity L03.119; L02.419
== END 2023-09-11 15:40 | disposition home or self-care (01) ==
LOC: HO.HID 15:18
PROVIDERS: PCP Internal Medicine; Visit Provider Internal Medicine
DX: I89.0 Lymphedema, not elsewhere classified (principal); I82.409 Acute embolism and thrombosis of unspecified deep veins of unspecified lower extremity; B95.0 Streptococcus, group A, as the cause of diseases classified elsewhere; L03.119 Cellulitis of unspecified part of limb; L02.419 Cutaneous abscess of limb, unspecified
CPT/HCPCS: 99213

== ENCOUNTER → 2023-09-11 15:18 | Outpatient (BNVA) | payer MEDICARE, MEDICAID, SELFPAY | PROVIDERS: PCP Internal Medicine; Visit Provider Internal Medicine | DX: I89.0 Lymphedema, not elsewhere classified (principal); I82.409 Acute embolism and thrombosis of unspecified deep veins of unspecified lower extremity; B95.0 Streptococcus, group A, as the cause of diseases classified elsewhere; L03.119 Cellulitis of unspecified part of limb; L02.419 Cutaneous abscess of limb, unspecified | CPT/HCPCS: 99212 ==

== ENCOUNTER 2024-02-05 12:06 | Inpatient (IN) | payer MEDICARE, MEDICAID, SELFPAY ==
[2024-02-05] VITALS (9 sets, daily range): BP systolic 77–136; BP diastolic 24–86; PULSE 68–120; RESP 16–22; TEMP 36.7–40.2; O2SAT 87–99; BMI 47.2
--- NOTE | ~2024-02-05 | XR_ITS ---
EXAMINATION: XR CHEST CLINICAL INFORMATION: Fever. Cough. Rule out pneumonia. COMPARISON: 08/17/2023 TECHNIQUE: Frontal view of the chest was obtained. FINDINGS: Cardiac silhouette is at the upper limits normal in size, likely related to position. Similarly, there is prominence of the pulmonary vasculature which may also be due to supine positioning, though mild pulmonary venous congestion cannot be excluded. No pneumothorax or pleural effusion identified. No focal airspace consolidation. Hypoinspiratory changes are suspected. No appreciable pulmonary edema. Degenerative disc disease in the thoracic spine. Osteoarthritis is present in the acromioclavicular and glenohumeral joints. XR/XR chest 1V IMPRESSION: 1. No focal airspace consolidation. 2. Prominence of the pulmonary vasculature may be due to supine positioning and low lung volumes, though mild pulmonary venous congestion cannot be excluded.
--- NOTE | 2024-02-05 12:34 | ED_ITS ---
HPI - Fever General Chief Complaint: Fever Stated Complaint: FEVER,LOW SAT 96%,BP 93/62 FROM SNF PER EMS Time Seen by Provider: 02/05/24 12:33 Source: patient Mode of arrival: EMS Limitations: no limitations History of Present Illness ED Provider: Dr. Lewis Tapia HPI Narrative: 78-year-old female history of cellulitis with abscess of lower extremity, streptococcal bacteremia, morbid obesity, DVT, lymphedema, mood disorder, congestive heart failure who presents emergency department for evaluation of fever and low O2 saturation in the 80% range, tachycardia and possible urinary tract infection. The patient states that yesterday she developed left-sided back pain. She states that she felt hot and cold all day yesterday. She has noted urinary frequency but denied dysuria. She states that she has rhinorrhea and a nonproductive cough. She states she had 2 episodes of vomiting today. Related Data Home Medications ?Medication ?Instructions ?Recorded ?Confirmed diclofenac sodium 1 % topical gel 4 g topical Q6H PRN Pain (Scale 10/05/20 08/17/23 Score 1-3) famotidine 20 mg tablet 20 mg PO BEDTIME 10/05/20 08/17/23 gabapentin 100 mg capsule 100 mg PO TID 10/05/20 08/17/23 metoprolol tartrate 25 mg tablet 12.5 mg PO BID 10/05/20 08/17/23 trazodone 100 mg tablet 100 mg PO BEDTIME 10/05/20 08/17/23 acetaminophen 325 mg tablet 650 mg PO Q6H PRN Pain (Scale 08/17/23 08/17/23 Score 1-3) bisacodyl 10 mg rectal suppository 10 mg MD DAILY PRN Constipation 08/17/23 08/17/23 cholecalciferol (vitamin D3) 50 50 mcg PO DAILY 08/17/23 08/17/23 mcg (2,000 unit) tablet docusate sodium 100 mg capsule 100 mg PO BID 08/17/23 08/17/23 guaifenesin 100 mg/5 mL oral liquid 200 mg PO Q4H PRN Cough 08/17/23 08/17/23 Previous Rx's ?Medication ?Instructions ?Recorded cefuroxime axetil 500 mg tablet 500 mg PO BID 14 days #28 tabs 08/27/23 penicillin V potassium 250 mg 250 mg PO BID 30 days #60 tabs 09/11/23 tablet Allergies Allergy/AdvReac Type Severity Reaction Status Date / Time aspirin [ASPIRIN] Allergy Unknown TURNS RED Verified 02/05/24 12:20 codeine [CODEINE] Allergy Unknown UNKNOWN Verified 09/11/23 15:22 nitrofurantoin Allergy Unknown UNKNOWN Verified 09/11/23 15:22 [NITROFURANTOIN] Sulfa (Sulfonamide Allergy Unknown UNKNOWN Verified 09/11/23 15:22 Antibiotics) [SULFA (SULFONAMIDE ANTIBIOTICS)] Aspirin Allergy Unknown Unknown Uncoded 08/17/23 19:46 aspirin Allergy Unknown Unknown Uncoded 08/17/23 19:46 Review of Systems 2 Review of Systems: Yes all other systems are reviewed and are negative [facility] Past Medical History [facility] Narrative: Social history: Patient was long-term resident of [facility]. She denies tobacco, alcohol and drug use. Medical History (Updated 02/05/24 @ 15:41 by Lewis Tapia MD) Cellulitis and abscess of lower extremity Group A streptococcal infection Obesity Chronic anticoagulation DVT (deep venous thrombosis) Lymphedema Mood disorder Congestive heart failure Social History Social History Household Members: Other Housing: Prison Housing Other:: [facility] [place] Do you presently have visiting nurse or other home services: Yes Patient Tobacco Use Status: Never used Tobacco Smoked in Last 30 Days: No e-Cigarette/Vaping Use: Never Used Second Hand Smoke Exposure: No Use of substances other than those prescribed or required for medical reasons: No Advance Directives: Yes Advance Directives on File: Yes Advance Directives Date on File: 08/17/23 Physical Exam 2 Vital Signs: Vital Signs: Last Vital Signs Temp 100.6 F H 02/05/24 14:22 Pulse 83 02/05/24 14:22 Resp 18 02/05/24 14:22 BP 119/56 L 02/05/24 14:22 Pulse Ox 99 02/05/24 14:22 O2 Del Method Nasal Cannula 02/05/24 14:22 O2 Flow Rate 2 02/05/24 14:22 BMI result Body Mass Index 47.2 Vital signs did reveal low O2 saturation of 87% on room air improved to 95% on 2 L via nasal cannula. She had an elevated heart rate of 120 and elevated respiratory rate of 22. Exam: General: Awake, alert in no distress, weight 124 kg, elevated BMI 47.2 kg per m2 Head: Normocephalic, atraumatic EENT: PERRL, Lids normal, sclera normal, conjunctiva normal, nose normal , ears normal, throat without erythema or exudates Neck: Supple, no adenopathy Lung: breath sounds symmetric, no wheezing, rales or rhonchi Chest: symmetric movement, nontender Heart: regular rate and rhythm, normal S1, S2 no murmurs or rubs Abdomen: soft, non-tender, nondistended, normal bowel sounds Back: no vertebral tenderness, mild to moderate left-sided CVA tenderness, no right-sided CVA tenderness Extremities: Both lower extremities were wrapped in Wero wraps when these removed, patient was noted to have a superficial ulcer to the right lateral calf area with some increased erythema but no significant warmth, she does have chronic skin change on both lower extremities that do not appear to be infected Neuro: Awake, alert, oriented, normal speech, cranial nerves intact, moves all extremities symmetrically Psych: Pleasant, cooperative Medications Administered Generic Name Dose Route Start Last Admin Trade Name Freq PRN Reason Stop Dose Admin Azithromycin 500 mg/ Sodium 250 mls @ 125 mls/hr 02/05/24 14:00 02/05/24 14:17 Chloride IV 02/05/24 15:59 125 mls/hr ONCE ONE Administration Discontinued Medications Generic Name Dose Route Start Last Admin Trade Name Freq PRN Reason Stop Dose Admin Acetaminophen 975 mg 02/05/24 12:43 02/05/24 12:58 Acetaminophen 325 Mg Tablet PO 02/05/24 12:44 975 mg ONCE STA Administration Sodium Chloride 1,641 mls @ 1,641 mls/hr 02/05/24 12:43 02/05/24 14:18 Ns IV 02/05/24 13:42 Infused .Q1H STA Infusion Ceftriaxone Sodium 1 gm/ 50 mls @ 100 mls/hr 02/05/24 12:56 02/05/24 13:37 Sodium Chloride IV 02/05/24 13:25 Infused ONCE ONE Infusion Sodium Chloride 1,000 mls @ 0 mls/hr 02/05/24 14:02 02/05/24 14:17 Ns IV 02/05/24 14:03 999 mls/hr .Q0M STA Administration Wide Open Medical Decision Making Medical Decision Making [facility] Narrative: 78-year-old female history of cellulitis with abscess of lower extremity, streptococcal bacteremia, morbid obesity, DVT, lymphedema, mood disorder, congestive heart failure who presents emergency department for evaluation of cough, urinary frequency, right flank x2 days with fever and low O2 saturation in the 80% range, tachycardia started today. Patient was resident of a long- term care facility. Patient's vital signs on presentation revealed an elevated heart rate of 120, elevated respiratory rate of 22, rectal temperature of a 104.3 degrees F and O2 saturation of 87% on room air. Patient did have mild to moderate left flank tenderness. She is chronic skin changes to her lower extremities with no evidence for cellulitis. Patient was made a sepsis alert 12:45 Differential diagnosis: ?Includes but is not limited to pneumonia, urinary tract infection, cellulitis, electrolyte abnormalities, anemia Following evaluation was ordered: CBC, CMP, CRP, lactic acid, lipase, COVID-19, influenza, RSV, blood cultures x2, chest x-ray one view, sepsis alert was called at 12:45 hours Patient was initially treated with the following: Normal saline bolus 30 milligrams/kilogram based on ideal body weight-the patient is obese with an elevated BMI of 47.2. Ceftriaxone 1 g IV, azithromycin 500 mg IV, oxygen 2 L via nasal cannula Course: 14:21 My interpretation patient's laboratory evaluation is as follows: WBC elevated 12,100. Low platelet count a [id number]-lyim is chronic. Left shift with 92 neutrophils, 2 lymphocytes. Potassium low 3.2. Glucose elevated 137. Lactic acid 3.7. Total bilirubin 1.3. C-reactive protein elevated 12.2. Straight cath urinalysis revealed positive blood, negative nitrates, positive leukocyte esterase. Microscopic revealed 6-10 RBCs. 11-12 WBCs, 0-2 squamous cells and 3+ bacteria. COVID-19, influenza and RSV were negative. My interpretation patient's chest x-ray: Possible left lower lobe infiltrate 15:22 The patient's completed her fluid bolus with no significant hypotension. Sepsis Focused exam was performed prior to admission. I did discuss admission over tiger text with the covering hospitalist, Dr. Paulino and the patient will be admitted to the medical service for further management Admission/Observation Consideration of admission/observation: Escalation of care including admission/observation considered Consult Healthcare Provider Management of the patient was discussed with: Hospitalist Lab Data MDM Lab Attestation statement: I reviewed the patient's lab results. 02/05/24 12:49 02/05/24 12:49 Labs: Lab Results 02/05/24 02/05/24 02/05/24 Range/Units 12:49 12:52 13:04 WBC 12.1 H (4.8-10.8) X10*3/uL RBC 4.51 (4.20-5.50) X10*6/uL Hgb 13.1 D (12.0-16.0) g/dl Hct 39.8 (37.0-47.0) % MCV 88.2 (80.0-98.0) fL MCH 29.0 (27.0-33.0) pg MCHC 32.9 (31.0-35.0) g/dl RDW 15.1 (11.0-16.0) % Plt Count 142 L (160-400) X10*3/uL MPV 10.0 (9.4-12.3) fL Immature Gran % (Auto) 0.7 H (0.0-0.4) % Neut % (Auto) 92.1 H (45-73) % Lymph % (Auto) 2.3 L (20-40) % [place] % (Auto) 4.4 (2-11) % Eos % (Auto) 0.2 (0-4) % Baso % (Auto) 0.3 (0-2) % Lymph # (Auto) 0.3 L (1.2-4.9) X10*3/uL [place] # (Auto) 0.5 (0.1-1.2) X10*3/uL Eos # (Auto) 0.0 (0.0-0.4) X10*3/uL Baso # (Auto) 0.0 (0.0-0.2) X10*3/uL Abs Immat Gran (auto) 0.08 H (0.00-0.03) X10*3/uL Absolute Neuts (auto) 11.2 H (2.0-8.3) x10*3/uL Absolute Nucleated RBC 0.000 (0.0-0.012) X10*3/uL Nucleated RBC % (auto) 0.0 (0.0-0.2) /100WBC Smear Tech's Comments VERIFIED APTT 28.3 (26.0-36.8) SEC Sodium 141 (135-145) mmol/L Potassium 3.2 L (3.3-5.1) mmol/L Chloride 101 (96-108) mmol/L Carbon Dioxide 28 (22-29) mmol/L Anion Gap 15 (12-20) BUN 9 (9-16) mg/dL Creatinine 0.92 (0.5-1.4) mg/dL Estim Creat Clear Calc 67.9 Estimated GFR 59 Random Glucose 137 H (60-115) mg/dL Lactic Acid 3.7 H* (0.5-2.0) mmol/L Calcium 8.9 (8.4-10.2) mg/dL Total Bilirubin 1.3 H (0.0-1.0) mg/dL AST 30 (5-31) U/L ALT 10 (0-31) U/L Alkaline Phosphatase 98 (39-117) U/L C-Reactive Protein 12.21 H (< or = 0.50) mg/dL B-Natriuretic Peptide 79 (<100) pg/mL Total Protein 6.9 (6.5-8.0) g/dL Albumin 3.5 (3.5-5.0) g/dL Lipase 13 (8-78) U/L Urine Color Urine Appearance Urine pH (5.0-9.0) Ur Specific Sloan (1.005-1.025) Urine Protein (Neg-Trace) mg/dL Urine Glucose (UA) (Negative) mg/dL Urine Ketones (Negative) mg/dL Urine Blood (Negative) Urine Nitrite (Negative) Ur Leukocyte Esterase (Negative) Urine RBC (0-2) /HPF Urine WBC (0-5) /HPF Ur Squamous Epith Cells (0-2) /HPF Urine Bacteria (None Seen) Hyaline Casts (0-2) /LPF Influenza Type A (PCR) NEGATIVE (Negative) Influenza Type B (PCR) NEGATIVE (Negative) RSV RNA Qual (PCR) NEGATIVE (Negative) SARS-CoV-2 RNA (RT-PCR) NEGATIVE (Negative) 02/05/24 Range/Units 13:35 WBC (4.8-10.8) X10*3/uL RBC (4.20-5.50) X10*6/uL Hgb (12.0-16.0) g/dl Hct (37.0-47.0) % MCV (80.0-98.0) fL MCH (27.0-33.0) pg MCHC (31.0-35.0) g/dl RDW (11.0-16.0) % Plt Count (160-400) X10*3/uL MPV (9.4-12.3) fL Immature Gran % (Auto) (0.0-0.4) % Neut % (Auto) (45-73) % Lymph % (Auto) (20-40) % [place] % (Auto) (2-11) % Eos % (Auto) (0-4) % Baso % (Auto) (0-2) % Lymph # (Auto) (1.2-4.9) X10*3/uL [place] # (Auto) (0.1-1.2) X10*3/uL Eos # (Auto) (0.0-0.4) X10*3/uL Baso # (Auto) (0.0-0.2) X10*3/uL Abs Immat Gran (auto) (0.00-0.03) X10*3/uL Absolute Neuts (auto) (2.0-8.3) x10*3/uL Absolute Nucleated RBC (0.0-0.012) X10*3/uL Nucleated RBC % (auto) (0.0-0.2) /100WBC Smear Tech's Comments APTT (26.0-36.8) SEC Sodium (135-145) mmol/L Potassium (3.3-5.1) mmol/L Chloride (96-108) mmol/L Carbon Dioxide (22-29) mmol/L Anion Gap (12-20) BUN (9-16) mg/dL Creatinine (0.5-1.4) mg/dL Estim Creat Clear Calc Estimated GFR Random Glucose (60-115) mg/dL Lactic Acid (0.5-2.0) mmol/L Calcium (8.4-10.2) mg/dL Total Bilirubin (0.0-1.0) mg/dL AST (5-31) U/L ALT (0-31) U/L Alkaline Phosphatase (39-117) U/L C-Reactive Protein (< or = 0.50) mg/dL B-Natriuretic Peptide (<100) pg/mL Total Protein (6.5-8.0) g/dL Albumin (3.5-5.0) g/dL Lipase (8-78) U/L Urine Color Yellow Urine Appearance Clear Urine pH 5.5 (5.0-9.0) Ur Specific Sloan 1.010 (1.005-1.025) Urine Protein Trace (Neg-Trace) mg/dL Urine Glucose (UA) Negative (Negative) mg/dL Urine Ketones Negative (Negative) mg/dL Urine Blood Large (3+) H (Negative) Urine Nitrite Negative (Negative) Ur Leukocyte Esterase Small (1+) H (Negative) Urine RBC 6-10 H (0-2) /HPF Urine WBC 11-20 H (0-5) /HPF Ur Squamous Epith Cells 0-2 (0-2) /HPF Urine Bacteria 3+ (None Seen) Hyaline Casts 0-2 (0-2) /LPF Influenza Type A (PCR) (Negative) Influenza Type B (PCR) (Negative) RSV RNA Qual (PCR) (Negative) SARS-CoV-2 RNA (RT-PCR) (Negative) Independent Interpretation I performed an independent interpretation of an: Plain X-Ray Interpretation: My interpretation of the patient's chest x-ray is as follows: Left lower lobe infiltrate Radiology Impression Discussion of test interpretation with radiology: I have reviewed the radiologist's reading. Radiologist Impression: XR chest 1V IMPRESSION: 1. No focal airspace consolidation. 2. Prominence of the pulmonary vasculature may be due to supine positioning and low lung volumes, though mild pulmonary venous congestion cannot be excluded. Dictated By: Juan Jose Shaw MD External Record Review External record reviewed: Inpatient record Critical Care Time Critical Care Time Critical Care Time: Yes Total Critical Care Time: 90 Attestation: Critical Care: The patient was critically ill with a high probability of imminent or life threatening deterioration. I spent greater than 30 minutes of discontinuous time evaluating the patient,delivering critical care at the bedside, discussing and evaluating pertinent data with consultants. Critical care time does not include time spent performing separately billable procedures or teaching. Total time spent performing critical care was 90 minutes. Discharge Plan Discharge Clinical Impression: Urinary tract infection, Pneumonia, Fever Prescriptions: No Action acetaminophen 325 mg Tablet 650 mg PO Q6H PRN (Reason: Pain (Scale Score 1-3)) guaifenesin 100 mg/5 mL Liquid 200 mg PO Q4H PRN (Reason: Cough) bisacodyl 10 mg Suppository 10 mg MD DAILY PRN (Reason: Constipation) docusate sodium 100 mg Capsule 100 mg PO BID cholecalciferol (vitamin D3) 50 mcg (2,000 unit) Tablet 50 mcg PO DAILY cefuroxime axetil 500 mg tablet 500 mg PO BID 14 Days Qty: 28 0RF metoprolol tartrate 25 mg tablet 12.5 mg PO BID diclofenac sodium 1 % gel 4 g topical Q6H PRN (Reason: Pain (Scale Score 1-3)) famotidine 20 mg tablet 20 mg PO BEDTIME trazodone 100 mg tablet 100 mg PO BEDTIME gabapentin 100 mg capsule 100 mg PO TID penicillin V potassium 250 mg tablet 250 mg PO BID 30 Days Qty: 60 5RF Print Language: Kinyarwanda
[2024-02-05] MEDS: Acetaminophen 325 MG TABLET 975 MG PO (12:58)
[2024-02-05 13:01] LABS: Basophils Percent Auto 0.3 % (0-2); Eosinophils Percent Auto 0.2 % (0-4); Hematocrit 39.8 % (37.0-47.0); Hemoglobin 13.1 g/dl (12.0-16.0); Imm Gran Abs Auto 0.08 X10*3/uL (0.00-0.03); Imm Gran Pct Auto 0.7 % (0.0-0.4); Lymphocytes Absolute Auto 0.3 X10*3/uL (1.2-4.9); Lymphocytes Percent Auto 2.3 % (20-40); MANUAL DIFF FLAG SCAN; Mean Corpuscular HGB Conc 32.9 g/dl (31.0-35.0); Mean Corpuscular Volume 88.2 fL (80.0-98.0); Monocytes Absolute Auto 0.5 X10*3/uL (0.1-1.2); Monocytes Percent Auto 4.4 % (2-11); Neutrophils Absolute Auto 11.2 x10*3/uL (2.0-8.3); Neutrophils Percent Auto 92.1 % (45-73); Platelet Count 142 X10*3/uL (160-400); Red Blood Count 4.51 X10*6/uL (4.20-5.50); Red Cell Distribution Width 15.1 % (11.0-16.0); SCAN SMEAR FLAG 1; White Blood Count 12.1 X10*3/uL (4.8-10.8)
[2024-02-05] MEDS: cefTRIAXone sodium 1 GM in 0.9 % Sodium Chloride 50 ML IV (13:01)
[2024-02-05 13:09] LABS: Partial Thromboplastin Time 28.3 SEC (26.0-36.8)
[2024-02-05 13:15] LABS: Alanine Aminotransferase 10 U/L (0-31); Albumin Level 3.5 g/dL (3.5-5.0); Alkaline Phosphatase 98 U/L (39-117); Anion Gap 15 (12-20); Aspartate Amino Transferase 30 U/L (5-31); Bilirubin Total 1.3 mg/dL (0.0-1.0); Blood Urea Nitrogen 9 mg/dL (9-16); C Reactive Protein 12.21 mg/dL (< or = 0.50); Calcium 8.9 mg/dL (8.4-10.2); Carbon Dioxide 28 mmol/L (22-29); Chloride 101 mmol/L (96-108); Creatinine Clr Calc Pharmacy 67.9; Estimated Glomerular Filt Rate 59; Glucose Random 137 mg/dL (60-115); Lactic Acid 3.7 mmol/L (0.5-2.0); Lipase 13 U/L (8-78); Potassium 3.2 mmol/L (3.3-5.1); Sodium 141 mmol/L (135-145); Total Protein 6.9 g/dL (6.5-8.0)
[2024-02-05 13:21] LABS: B Type Natriuretic Peptide 79 pg/mL (<100)
[2024-02-05 13:26] LABS: SLIDE REVIEW VERIFIED
--- NOTE | 2024-02-05 13:37 | PC.NURSE ---
Pt presented to ED via EMS from [facility]. Facility called due to low SPO2, fever and tachycardia. Facility ? where pt has UTI. Pt is alert and oriented, breathing even but slightly elevated, skin hot to the touch. Pt report right sided lower back pain since yesterday, aching. Denies issues urinating but does report increased frequency. Here in ED pt found to be hypoxic on RA at 87%, placed on 2L O2 NC and improves to 97%. Rectal temp 104.3F. Pt placed on cooling blanket with continuos rectal temp. 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
[2024-02-05 13:43] LABS: Appearance Urine Clear; Color Urine Yellow; Glucose Urine UA Negative (Negative); Leukocyte Esterase Urine Small (1+) (Negative); Nitrite Urine Negative (Negative); PH 5.5 (5.0-9.0); UMIC TRIGGER UACC YES; Urine Blood Large (3+) (Negative); Urine Ketones Negative (Negative); Urine Protein Trace mg/dL (Neg-Trace)
[2024-02-05 13:47] LABS: Influenza A PCR NEGATIVE (Negative); Influenza B PCR NEGATIVE (Negative); Resp Syncy Virus RNA Qual PCR NEGATIVE (Negative); SARS COV2 PCR INHOUSE NEGATIVE (Negative)
[2024-02-05 13:56] LABS: Bacteria Urine 3+ (None Seen); Hyaline Casts Urine 0-2 /LPF (0-2); Squamous Epithelial Cell Urine 0-2 /HPF (0-2); UACC Culture Trigger YES
--- NOTE | 2024-02-05 14:02 | PC.NURSE ---
MD notified of low BP reading, orders followed
[2024-02-05] MEDS: Azithromycin 500 MG in 0.9 % Sodium Chloride 250 ML 125 MG IV (14:17)
[2024-02-05] MEDS: 0.9 % Sodium Chloride 1,000 ML 999 ML IV (14:17)
--- NOTE | 2024-02-05 14:50 | PC.NURSE ---
Pt noted to have improvement in temp and HR, sleeping at this time. Pt did have drop in BP that resolved with fluid administration.
[2024-02-05 14:57] LABS: Reflex Lactate? Lactic Acid Added
--- NOTE | 2024-02-05 15:24 | PC.NURSE ---
Pt cleaned of incontinence, purewick placed. Bilat lower legs wrapped with gauze.
--- NOTE | 2024-02-05 15:28 | MHC.EDTECH ---
pt cleaned, dry, and repositioned, rn put in pure wick
--- NOTE | 2024-02-05 16:05 | MHC.EDTECH ---
Pt is a hard stick, three techs and the rn tried drawing the lactic
--- NOTE | 2024-02-05 16:13 | PC.NURSE ---
Pt hard stick, delay getting second lactic.
--- NOTE | 2024-02-05 16:17 | P.HPHOSP_ITS ---
History of Present Illness Date of Service: 02/05/24 Chief Complaint: Fever, UTI A 78 years old lady with PMH of CHF, morbid obesity, DVT, lymphedema LE, mood disorder among others who is presenting from nursing facility with Fever and hypoxia. The patient states that she was having left flank pain started yesterday with no radiation complicated by fever and feeling unwell today. Found to be hypoxic by nursing staff who brought her to the hospital. No chest pain, palpitations, SOB, nausea, vomiting, diarrhea or focal weakness. she reports increase urine frequency. reporting cough and runny nose. In ED found to have urine infection by UA and possible lung infection by CXR. requiring O2 supplement. Admitted for further evaluation and treatment. Review of Systems 2 Review of Systems: reporting fever, chills and weakness No chest pain, palpitation No shortness of breath but has coughing No abdominal pain, nausea but had 2 episode of vomiting frequency as urinary symptoms LE chronic wounds PMFSH Medical History Cellulitis and abscess of lower extremity Group A streptococcal infection Obesity Chronic anticoagulation DVT (deep venous thrombosis) Lymphedema Mood disorder Congestive heart failure Social History Household Members: Other Housing: [facility] Other:: [facility] Do you presently have visiting nurse or other home services: Yes Patient Tobacco Use Status: Never used Tobacco Smoked in Last 30 Days: No e-Cigarette/Vaping Use: Never Used Second Hand Smoke Exposure: No Use of substances other than those prescribed or required for medical reasons: No Advance Directives: Yes Advance Directives on File: Yes Advance Directives Date on File: 08/17/23 Meds Allergies Allergy/AdvReac Type Severity Reaction Status Date / Time aspirin [ASPIRIN] Allergy Unknown TURNS RED Verified 02/05/24 12:20 codeine [CODEINE] Allergy Unknown UNKNOWN Verified 09/11/23 15:22 nitrofurantoin Allergy Unknown UNKNOWN Verified 09/11/23 15:22 [NITROFURANTOIN] Sulfa (Sulfonamide Allergy Unknown UNKNOWN Verified 09/11/23 15:22 Antibiotics) [SULFA (SULFONAMIDE ANTIBIOTICS)] Aspirin Allergy Unknown Unknown Uncoded 08/17/23 19:46 aspirin Allergy Unknown Unknown Uncoded 08/17/23 19:46 Active Medications: Current Medications Acetaminophen (Acetaminophen 325 Mg Tablet) 650 mg PO Q6H PRN PRN Reason: Pain, Mild (Pain Scale 1-3) Enoxaparin Sodium (Enoxaparin Sodium 40 Mg/0.4 Ml Syringe) 40 mg SUBCUT Q24H PAM Ceftriaxone Sodium 1 gm/ (Sodium Chloride) 50 mls @ 100 mls/hr IV Q24H PAM Azithromycin 500 mg/ Sodium (Chloride) 250 mls @ 125 mls/hr IV Q24H PAM Ondansetron HCl (Ondansetron Hcl 4 Mg/2 Ml Vial) 4 mg IVPUSH Q8H PRN PRN Reason: Nausea and Vomiting Potassium Chloride (Potassium Chloride Packet 20 Meq Packet) 40 meq PO ONCE ONE Stop: 02/05/24 16:18 Sodium Chloride (0.9 % Sodium Chloride Flush 3 Ml Syringe) 3 ml IVFLUSH QSHIFT [facility] Home Medications ?Medication ?Instructions ?Recorded ?Confirmed ?Last Taken ?Type diclofenac sodium 1 % topical gel 4 g topical Q6H PRN Pain (Scale 10/05/20 08/17/23 Unknown History Score 1-3) famotidine 20 mg tablet 20 mg PO BEDTIME 10/05/20 08/17/23 Unknown History gabapentin 100 mg capsule 100 mg PO TID 10/05/20 08/17/23 Unknown History metoprolol tartrate 25 mg tablet 12.5 mg PO BID 10/05/20 08/17/23 Unknown History trazodone 100 mg tablet 100 mg PO BEDTIME 10/05/20 08/17/23 Unknown History acetaminophen 325 mg tablet 650 mg PO Q6H PRN Pain (Scale 08/17/23 08/17/23 Unknown History Score 1-3) bisacodyl 10 mg rectal suppository 10 mg [place] DAILY PRN Constipation 08/17/23 08/17/23 Unknown History cholecalciferol (vitamin D3) 50 50 mcg PO DAILY 08/17/23 08/17/23 Unknown History mcg (2,000 unit) tablet docusate sodium 100 mg capsule 100 mg PO BID 08/17/23 08/17/23 Unknown History guaifenesin 100 mg/5 mL oral liquid 200 mg PO Q4H PRN Cough 08/17/23 08/17/23 Unknown History Physical Exam 2 Vital Signs and Narrative: Vital Signs: Last Vital Signs Temp 99.1 F 02/05/24 15:43 Pulse 84 02/05/24 15:43 Resp 18 02/05/24 15:43 BP 116/53 L 02/05/24 15:43 Pulse Ox 98 02/05/24 15:43 O2 Del Method Nasal Cannula 02/05/24 15:43 O2 Flow Rate 2 02/05/24 15:43 BMI result Body Mass Index 47.2 Const: Other: Constitutional : Awake, interactive, morbidly obese Neck : Normal inspection, Supple Cardiovascular : RRR, no JVP, bilateral lower extremity lymphedema Respiratory : good bilateral air entry, basal fine crackles, wheezes or rhonchi Gastrointestinal: soft, lax, Normal bowel sounds, Non tender Skin : Warm, Dry, chronic wounds in avi LE. covered with dressing Neurological : Alert & oriented x3, No focal deficit Results Labs 02/05/24 12:49 02/05/24 12:49 Labs: Laboratory Results - last 24 hr 02/05/24 02/05/24 02/05/24 12:49 12:52 13:04 MCV 88.2 MCH 29.0 MCHC 32.9 RDW 15.1 Plt Count 142 L MPV 10.0 Immature Gran % (Auto) 0.7 H Neut % (Auto) 92.1 H Lymph % (Auto) 2.3 L [place] % (Auto) 4.4 Eos % (Auto) 0.2 Baso % (Auto) 0.3 Lymph # (Auto) 0.3 L [place] # (Auto) 0.5 Eos # (Auto) 0.0 Baso # (Auto) 0.0 Abs Immat Gran (auto) 0.08 H Absolute Neuts (auto) 11.2 H Absolute Nucleated RBC 0.000 Nucleated RBC % (auto) 0.0 Smear Tech's Comments VERIFIED APTT 28.3 Anion Gap 15 Estim Creat Clear Calc 67.9 Estimated GFR 59 Random Glucose 137 H Lactic Acid 3.7 H* Calcium 8.9 Total Bilirubin 1.3 H AST 30 ALT 10 Alkaline Phosphatase 98 C-Reactive Protein 12.21 H B-Natriuretic Peptide 79 Total Protein 6.9 Albumin 3.5 Lipase 13 Urine Color Urine Appearance Urine pH Ur Specific [place] Urine Protein Urine Glucose (UA) Urine Ketones Urine Blood Urine Nitrite Ur Leukocyte Esterase Urine RBC Urine WBC Ur Squamous Epith Cells Urine Bacteria Hyaline Casts Influenza Type A (PCR) NEGATIVE Influenza Type B (PCR) NEGATIVE RSV RNA Qual (PCR) NEGATIVE SARS-CoV-2 RNA (RT-PCR) NEGATIVE 02/05/24 13:35 MCV MCH MCHC RDW Plt Count MPV Immature Gran % (Auto) Neut % (Auto) Lymph % (Auto) [place] % (Auto) Eos % (Auto) Baso % (Auto) Lymph # (Auto) [place] # (Auto) Eos # (Auto) Baso # (Auto) Abs Immat Gran (auto) Absolute Neuts (auto) Absolute Nucleated RBC Nucleated RBC % (auto) Smear Tech's Comments APTT Anion Gap Estim Creat Clear Calc Estimated GFR Random Glucose Lactic Acid Calcium Total Bilirubin AST ALT Alkaline Phosphatase C-Reactive Protein B-Natriuretic Peptide Total Protein Albumin Lipase Urine Color Yellow Urine Appearance Clear Urine pH 5.5 Ur Specific [place] 1.010 Urine Protein Trace Urine Glucose (UA) Negative Urine Ketones Negative Urine Blood Large (3+) H Urine Nitrite Negative Ur Leukocyte Esterase Small (1+) H Urine RBC 6-10 H Urine WBC 11-20 H Ur Squamous Epith Cells 0-2 Urine Bacteria 3+ Hyaline Casts 0-2 Influenza Type A (PCR) Influenza Type B (PCR) RSV RNA Qual (PCR) SARS-CoV-2 RNA (RT-PCR) Imaging Radiologist's Impressions: Impressions Chest X-Ray 02/05/24 13:55 IMPRESSION: 1. No focal airspace consolidation. 2. Prominence of the pulmonary vasculature may be due to supine positioning and low lung volumes, though mild pulmonary venous congestion cannot be excluded. Assessment and Plan (1) Fever: Status: Acute (2) Pneumonia: Status: Acute (3) Urinary tract infection: Status: Acute (4) Sepsis: Status: Acute (5) Acute hypokalemia: Status: Acute (6) Lactic acidosis: Status: Acute Plan A 78 years old lady with PMH of CHF, morbid obesity, DVT, lymphedema LE, mood disorder among others who is presenting from nursing facility with Fever and hypoxia. Sepsis 2/2 UTI Pending cultures start IV Ceftriaxone Lung infection, bacterial vs viral possible LLL infiltrates on CXR cover with Azithromycin and CTX check resp. panel Acute lactic acidosis secondary to sepsis resolved with IVF Acute hypokalemia to give replacement follow BMP resmue home meds once Med rec is done DVT PPx Lovenox The patient will need 2 overnight hospital stay for treatment of sepsis pending final cultures and clinical improvement. Quality Stroke Does the patient have a stroke diagnosis?: No VTE Prior VTE?: No VTE Risk Level:: Medical - moderate - high VTE Device Contraindication: Treatment Not Indicated VTE Drug Contraindication: N/A - Med Ordered
[2024-02-05 16:35] LABS: ~Lactic Acid-LAB USE ONLY 0.9 mmol/L (0.5-2.0)
[2024-02-05] MEDS: Potassium Chloride Packet 20 MEQ PACKET 40 MEQ PO (17:04)
[2024-02-05] MEDS: Enoxaparin Sodium 40 MG/0.4 ML SYRINGE SUBCUT (17:05)
--- NOTE | 2024-02-05 19:03 | PHA.MEDREC ---
Pharmacy Consult ? Medication Reconciliation Pharmacy has completed the medication reconciliation. Medications confirmed though list from [facility] and [facility].
--- NOTE | 2024-02-05 21:49 | MHC.CM.PN ---
Addendum entered by Trinity López 02/05/24 22:09: Return referral to [facility] made in [facility]. Addendum entered by Trinity López 02/05/24 21:54: IMM original given to patient and copy to medical records. Original Note: IMM 02/04. CM met with admitted patient in overflow unit with bed assignment pending. A&Ox3. Pt is a [facility] in [place]. States she is happy there and they take good care of her. She uses a Wheelchair. PCP is verified. HCP on File. Gloria Morgan ([phone]). MOLST of file-Full code. D/C plan: return to [facility] via BLS. CM will follow for discharge planning.
--- NOTE | 2024-02-05 22:08 | MHC.EDTECH ---
Patient laying comfortably supine. Bp taken on Right arm within Normal Limits. Patient reports no pain at this time. Purewick position was checked/ remains dry. skin is dry intact no redness.
[2024-02-06] MEDS: 0.9 % Sodium Chloride Flush 3 ML SYRINGE IVFLUSH ×4 (00:58→22:17)
[2024-02-06 06:29] LABS: Anion Gap 14 (12-20); Blood Urea Nitrogen 10 mg/dL (9-16); Calcium 8.3 mg/dL (8.4-10.2); Carbon Dioxide 26 mmol/L (22-29); Chloride 105 mmol/L (96-108); Creatinine Clr Calc Pharmacy 75.2; Estimated Glomerular Filt Rate > 60; Glucose Random 103 mg/dL (60-115); Potassium 4.5 mmol/L (3.3-5.1); Sodium 140 mmol/L (135-145)
[2024-02-06 07:52] VITALS: BP 147/65; PULSE 88; RESP 16; TEMP 37.4; O2SAT 97
[2024-02-06] MEDS: Gabapentin 100 MG CAPSULE PO ×3 (08:55→21:09)
[2024-02-06] MEDS: Docusate Sodium 100 MG CAPSULE PO ×2 (08:55→21:09)
[2024-02-06] MEDS: Metoprolol Tartrate 12.5 MG HALFTAB PO ×2 (08:56→21:10)
[2024-02-06] MEDS: Acetaminophen 325 MG TABLET 650 MG PO ×2 (08:56→15:31)
[2024-02-06] MEDS: Potassium Chloride ER 20 MEQ TAB.ER.PRT 40 MEQ PO (08:56)
[2024-02-06] MEDS: DULoxetine HCl 60 MG CAPSULE.DR PO (08:56)
[2024-02-06] MEDS: Cholecalciferol (Vitamin D3) 25 MCG TABLET 50 MCG PO (08:56)
[2024-02-06] MEDS: Furosemide 40 MG TABLET PO ×2 (08:56→21:09)
--- NOTE | 2024-02-06 09:04 | PC.NURSE ---
patient medicated per the OCT, requested IV in her hand to be removed - both AC IV's patent was able to remove it. patient takes pills whole all together with water. remains alert and oriented, offers no complaints at this time. requesting to sleep. call dickson within reach.
--- NOTE | 2024-02-06 10:13 | HO.PM.IMPN ---
Subjective Subjective Date of Service: 02/06/24 Interval History: seen and evaluated this morning looks more comfortable blood cultures growing GNR no fever but has chills no other events Review of Systems Review of Systems: Yes all other systems are reviewed and are negative Physical Exam Vital Signs: Vital Signs: Last Vital Signs Temp 99.3 F 02/06/24 07:52 Pulse 88 02/06/24 07:52 Resp 16 02/06/24 07:52 BP 147/65 H 02/06/24 07:52 Pulse Ox 97 02/06/24 07:52 O2 Del Method Nasal Cannula 02/06/24 07:52 O2 Flow Rate 3 02/06/24 07:52 BMI result Body Mass Index 47.2 Const: Other: Constitutional : Awake, interactive, morbidly obese Neck : Normal inspection, Supple Cardiovascular : RRR, no JVP, bilateral lower extremity lymphedema Respiratory : good bilateral air entry, basal fine crackles, wheezes or rhonchi Gastrointestinal: soft, lax, Normal bowel sounds, Non tender Skin : Warm, Dry, chronic wounds in avi LE. covered with dressing Neurological : Alert & oriented x3, No focal deficit Objective Data Active Medications Acetaminophen (Acetaminophen 325 Mg Tablet) 650 mg PO Q6H PRN PRN Reason: Pain, Mild (Pain Scale 1-3) Last Admin: 02/06/24 08:56 Dose: 650 mg Documented By: NESTOR Bisacodyl (Bisacodyl 10 Mg Supp.Rect) 10 mg [place] DAILY PRN PRN Reason: Constipation Docusate Sodium (Docusate Sodium 100 Mg Capsule) 100 mg PO BID [facility] Last Admin: 02/06/24 08:55 Dose: 100 mg Documented By: NESTOR Duloxetine HCl (Duloxetine Hcl 60 Mg Capsule.Dr) 60 mg PO DAILY [facility] Last Admin: 02/06/24 08:56 Dose: 60 mg Documented By: NESTOR Enoxaparin Sodium (Enoxaparin Sodium 40 Mg/0.4 Ml Syringe) 40 mg SUBCUT Q24H [facility] Last Admin: 02/05/24 17:05 Dose: 40 mg Documented By: PRAMOD Famotidine (Famotidine 20 Mg Tablet) 20 mg PO BEDTIME [facility] Furosemide (Furosemide 40 Mg Tablet) 40 mg PO BID [facility]; Protocol Last Admin: 02/06/24 08:56 Dose: 40 mg Documented By: NESTOR Gabapentin (Gabapentin 100 Mg Capsule) 100 mg PO TID [facility] Last Admin: 02/06/24 08:55 Dose: 100 mg Documented By: NESTOR Guaifenesin (Guaifenesin 100 Mg/5 Ml Liquid) 10 ml PO Q4H PRN PRN Reason: Cough Ceftriaxone Sodium 1 gm/ (Sodium Chloride) 50 mls @ 100 mls/hr IV Q24H PAM Azithromycin 500 mg/ Sodium (Chloride) 250 mls @ 125 mls/hr IV Q24H [facility] Magnesium Hydroxide (Milk Of Magnesia 30 Ml Oral.Susp) 30 ml PO DAILY PRN PRN Reason: Constipation Metoprolol Tartrate (Metoprolol Tartrate 12.5 Mg Halftab) 12.5 mg PO BID [facility]; Protocol Last Admin: 02/06/24 08:56 Dose: 12.5 mg Documented By: NESTOR Ondansetron HCl (Ondansetron Hcl 4 Mg/2 Ml Vial) 4 mg IVPUSH Q8H PRN PRN Reason: Nausea and Vomiting Potassium Chloride (Potassium Chloride Er 20 Meq Tab.Er.Prt) 40 meq PO DAILY [facility] Last Admin: 02/06/24 08:56 Dose: 40 meq Documented By: NESTOR Sodium Biphosphate/Sodium Phosphate (Sodium Phosphate,[place]-Dibasic 133 Ml Enema) 118 ml [place] DAILY PRN PRN Reason: Constipation Sodium Chloride (0.9 % Sodium Chloride Flush 3 Ml Syringe) 3 ml IVFLUSH QSHIFT [facility] Last Admin: 02/06/24 08:53 Dose: 3 ml Documented By: NESTOR Trazodone HCl (Trazodone Hcl 100 Mg Tablet) 100 mg PO BEDTIME [facility] Vitamin D (Cholecalciferol (Vitamin D3) 25 Mcg Tablet) 50 mcg PO DAILY [facility] Last Admin: 02/06/24 08:56 Dose: 50 mcg Documented By: NESTOR Labs 02/05/24 12:49 02/06/24 04:51 Labs: Laboratory Results - last 24 hr 02/05/24 02/05/24 02/05/24 12:49 12:52 13:04 MCV 88.2 MCH 29.0 MCHC 32.9 RDW 15.1 Plt Count 142 L MPV 10.0 Immature Gran % (Auto) 0.7 H Neut % (Auto) 92.1 H Lymph % (Auto) 2.3 L [place] % (Auto) 4.4 Eos % (Auto) 0.2 Baso % (Auto) 0.3 Lymph # (Auto) 0.3 L [place] # (Auto) 0.5 Eos # (Auto) 0.0 Baso # (Auto) 0.0 Abs Immat Gran (auto) 0.08 H Absolute Neuts (auto) 11.2 H Absolute Nucleated RBC 0.000 Nucleated RBC % (auto) 0.0 Smear Tech's Comments VERIFIED APTT 28.3 Anion Gap 15 Estim Creat Clear Calc 67.9 Estimated GFR 59 Random Glucose 137 H Lactic Acid 3.7 H* Lactic Acid F/U @ 2Hr Calcium 8.9 Total Bilirubin 1.3 H AST 30 ALT 10 Alkaline Phosphatase 98 C-Reactive Protein 12.21 H B-Natriuretic Peptide 79 Total Protein 6.9 Albumin 3.5 Lipase 13 Urine Color Urine Appearance Urine pH Ur Specific [place] Urine Protein Urine Glucose (UA) Urine Ketones Urine Blood Urine Nitrite Ur Leukocyte Esterase Urine RBC Urine WBC Ur Squamous Epith Cells Urine Bacteria Hyaline Casts Influenza Type A (PCR) NEGATIVE Influenza Type B (PCR) NEGATIVE RSV RNA Qual (PCR) NEGATIVE SARS-CoV-2 RNA (RT-PCR) NEGATIVE 02/05/24 02/05/24 02/06/24 13:35 16:14 04:51 MCV MCH MCHC RDW Plt Count MPV Immature Gran % (Auto) Neut % (Auto) Lymph % (Auto) [place] % (Auto) Eos % (Auto) Baso % (Auto) Lymph # (Auto) [place] # (Auto) Eos # (Auto) Baso # (Auto) Abs Immat Gran (auto) Absolute Neuts (auto) Absolute Nucleated RBC Nucleated RBC % (auto) Smear Tech's Comments APTT Anion Gap 14 Estim Creat Clear Calc 75.2 Estimated GFR > 60 Random Glucose 103 Lactic Acid Lactic Acid F/U @ 2Hr 0.9 Calcium 8.3 L D Total Bilirubin AST ALT Alkaline Phosphatase C-Reactive Protein B-Natriuretic Peptide Total Protein Albumin Lipase Urine Color Yellow Urine Appearance Clear Urine pH 5.5 Ur Specific [place] 1.010 Urine Protein Trace Urine Glucose (UA) Negative Urine Ketones Negative Urine Blood Large (3+) H Urine Nitrite Negative Ur Leukocyte Esterase Small (1+) H Urine RBC 6-10 H Urine WBC 11-20 H Ur Squamous Epith Cells 0-2 Urine Bacteria 3+ Hyaline Casts 0-2 Influenza Type A (PCR) Influenza Type B (PCR) RSV RNA Qual (PCR) SARS-CoV-2 RNA (RT-PCR) Microbiology Microbiology Results: Microbiology 02/05/24 12:52 Blood Culture - Preliminary Blood - Venous Gram negative caryl 02/05/24 12:49 Blood Culture - Preliminary Blood - Venous Gram negative caryl Assessment and Plan (1) Lactic acidosis: Status: Acute (2) Acute hypokalemia: Status: Acute (3) Sepsis: Status: Acute (4) Urinary tract infection: Status: Acute Plan A 78 years old lady with PMH of CHF, morbid obesity, DVT, lymphedema LE, mood disorder among others who is presenting from nursing facility with Fever and hypoxia. Sepsis 2/2 UTI complicated with GNR Bacteremia Pending cultures and sensitivity Continue IV Ceftriaxone Lung infection, bacterial vs viral possible LLL infiltrates on CXR cover with Azithromycin and CTX check resp. panel Acute lactic acidosis secondary to sepsis resolved with IVF Acute hypokalemia to give replacement follow BMP GERD Famotidine Hx lymphedema PO Lasix DVT PPx Lovenox The patient will need 2 overnight hospital stay for treatment of sepsis pending final cultures and clinical improvement. Quality Stroke Does the patient have a stroke diagnosis?: No VTE Prior VTE?: No VTE Risk Level:: Medical - moderate - high VTE Device Contraindication: Treatment Not Indicated VTE Drug Contraindication: N/A - Med Ordered
[2024-02-06 11:53] LABS: Adenovirus PCR Not Detected (Not Detect.); Bordetella parapertussis PCR Not Detected (Not Detect.); Bordetella pertussis PCR Not Detected (Not Detect.); Chlamydia pneumoniae PCR Not Detected (Not Detect.); Coronavirus 229E PCR Not Detected (Not Detect.); Coronavirus HKU1 PCR Not Detected (Not Detect.); Coronavirus NL63 PCR Not Detected (Not Detect.); Coronavirus OC43 PCR Not Detected (Not Detect.); Human metapneumovirus PCR Not Detected (Not Detect.); Influenza A PCR Not Detected (Not Detect.); Influenza B PCR Not Detected (Not Detect.); Mycoplasma pneumoniae PCR Not Detected (Not Detect.); Parainfluenza 1 PCR Not Detected (Not Detect.); Parainfluenza 2 PCR Not Detected (Not Detect.); Parainfluenza 3 PCR Not Detected (Not Detect.); Parainfluenza 4 PCR Not Detected (Not Detect.); RSV PCR Not Detected (Not Detect.); Rhino/Enterovirus PCR Not Detected (Not Detect.)
[2024-02-06 12:29] LABS: SARS-CoV-2 PCR Not Detected (Not Detect.)
[2024-02-06] MEDS: cefTRIAXone sodium 1 GM in 0.9 % Sodium Chloride 50 ML IV (12:32)
[2024-02-06] MEDS: Azithromycin 500 MG in 0.9 % Sodium Chloride 250 ML 125 MG IV (13:30)
[2024-02-06 14:17] LABS: Basophils Percent Auto 0.4 % (0-2); Eosinophils Absolute Auto 0.1 X10*3/uL (0.0-0.4); Hematocrit 36.8 % (37.0-47.0); Hemoglobin 12.2 g/dl (12.0-16.0); Imm Gran Abs Auto 0.03 X10*3/uL (0.00-0.03); Imm Gran Pct Auto 0.4 % (0.0-0.4); Lymphocytes Absolute Auto 0.5 X10*3/uL (1.2-4.9); Lymphocytes Percent Auto 6.6 % (20-40); Mean Corpuscular HGB Conc 33.2 g/dl (31.0-35.0); Mean Corpuscular Hemoglobin 29.7 pg (27.0-33.0); Mean Corpuscular Volume 89.5 fL (80.0-98.0); Mean Platelet Volume 10.9 fL (9.4-12.3); Monocytes Absolute Auto 0.6 X10*3/uL (0.1-1.2); Monocytes Percent Auto 7.7 % (2-11); Neutrophils Percent Auto 83.9 % (45-73); Platelet Count 122 X10*3/uL (160-400); Red Blood Count 4.11 X10*6/uL (4.20-5.50); Red Cell Distribution Width 15.1 % (11.0-16.0); White Blood Count 7.1 X10*3/uL (4.8-10.8)
--- NOTE | 2024-02-06 14:56 | PC.NURSE ---
patient complaining of pain at right AC IV site, antibiotic appears to have infiltrated. IV removed, arm wrapped. patient states that the arm feels better after stopping the medication
[2024-02-06 15:12] VITALS: BP 148/74; PULSE 79; RESP 20; TEMP 37.2; O2SAT 98
[2024-02-06] MEDS: Enoxaparin Sodium 40 MG/0.4 ML SYRINGE SUBCUT (17:08)
[2024-02-06 20:42] VITALS: BP 135/64; PULSE 82; RESP 17; TEMP 37.2; O2SAT 97
[2024-02-06] MEDS: traZODone HCL 100 MG TABLET PO (21:09)
[2024-02-06] MEDS: Famotidine 20 MG TABLET PO (21:09)
[2024-02-06 21:26] VITALS: O2SAT 94
--- NOTE | 2024-02-06 21:26 | PC.NURSE ---
Pt was taken off O2, Spo2 94% on RA.
[2024-02-06 21:43] VITALS: BP 136/60; PULSE 93; RESP 18; TEMP 36.2; O2SAT 95
--- NOTE | 2024-02-06 21:46 | PC.NURSE ---
This video game script writer assumed care of this Pt at 1900. Pt A&Ox3, denies any pain. Pt on 1L of O2 via NC, respirations even, non labored. Purewick in place. Pt medicated per OCT. Report cmplete Pt brought up to room 345.
[2024-02-06 22:40] VITALS: BMI 56.0
[2024-02-07 03:26] VITALS: BP 112/57; PULSE 87; RESP 18; TEMP 36.8; O2SAT 95
[2024-02-07 07:23] LABS: Hematocrit 35.3 % (37.0-47.0); Hemoglobin 11.6 g/dl (12.0-16.0); Mean Corpuscular HGB Conc 32.9 g/dl (31.0-35.0); Mean Corpuscular Hemoglobin 29.1 pg (27.0-33.0); Mean Corpuscular Volume 88.7 fL (80.0-98.0); Mean Platelet Volume 10.6 fL (9.4-12.3); Platelet Count 115 X10*3/uL (160-400); Red Blood Count 3.98 X10*6/uL (4.20-5.50); White Blood Count 4.7 X10*3/uL (4.8-10.8)
[2024-02-07 07:42] LABS: Anion Gap 10 (12-20); Blood Urea Nitrogen 11 mg/dL (9-16); Calcium 8.4 mg/dL (8.4-10.2); Carbon Dioxide 31 mmol/L (22-29); Chloride 101 mmol/L (96-108); Creatinine Clr Calc Pharmacy 80.8; Estimated Glomerular Filt Rate > 60; Glucose Random 93 mg/dL (60-115); Potassium 3.8 mmol/L (3.3-5.1); Sodium 138 mmol/L (135-145)
[2024-02-07 08:00] VITALS: BP 142/63; PULSE 84; RESP 13; TEMP 36.9; O2SAT 93
[2024-02-07] MEDS: Metoprolol Tartrate 12.5 MG HALFTAB PO (08:28)
[2024-02-07 08:29] VITALS: BP 142/63
[2024-02-07] MEDS: 0.9 % Sodium Chloride Flush 3 ML SYRINGE IVFLUSH ×2 (08:29→15:04)
[2024-02-07] MEDS: Gabapentin 100 MG CAPSULE PO ×2 (08:29→15:03)
[2024-02-07] MEDS: Furosemide 40 MG TABLET PO (08:29)
[2024-02-07] MEDS: DULoxetine HCl 60 MG CAPSULE.DR PO (08:29)
[2024-02-07] MEDS: Potassium Chloride ER 20 MEQ TAB.ER.PRT 40 MEQ PO (08:29)
[2024-02-07] MEDS: Cholecalciferol (Vitamin D3) 25 MCG TABLET 50 MCG PO (08:37)
--- NOTE | 2024-02-07 09:06 | MHC.CM.PN ---
A clinical update has been sent to [facility]. Patient is LTC @ [facility]. DP return to [facility] via BLS once medically cleared.
--- NOTE | 2024-02-07 10:45 | P.DS_ITS ---
DS: Providers Provider Date of Service: 02/07/24 Date of admission: 02/05/24 16:14 Primary care physician: Lali Watts MD DS: Diagnosis Discharge Diagnosis (1) Lactic acidosis: Status: Acute (2) Acute hypokalemia: Status: Acute (3) Sepsis: Status: Acute (4) Urinary tract infection: Status: Acute (5) E coli bacteremia: Status: Acute (6) Pneumonia: Status: Acute DS: Summary Hospital Course Hospital Course: Admission note HPI A 78 years old lady with PMH of CHF, morbid obesity, DVT, lymphedema LE, mood disorder among others who is presenting from nursing facility with Fever and hypoxia. The patient states that she was having left flank pain started yesterday with no radiation complicated by fever and feeling unwell today. Found to be hypoxic by nursing staff who brought her to the hospital. No chest pain, palpitations, SOB, nausea, vomiting, diarrhea or focal weakness. she reports increase urine frequency. reporting cough and runny nose. In ED found to have urine infection by UA and possible lung infection by CXR. requiring O2 supplement. Admitted for further evaluation and treatment. Hospital course # Sepsis secondary to UTI complicated with E.Coli Bacteremia Treated with IV Ceftriaxone as blood cultures grew E.Coli along with urine culture. To be discharged on Ceftin to finish total of 2 weeks of antibiotics. # Lung infection, bacterial vs viral possible LLL infiltrates on CXR. covered with Azithromycin as resp. panel came back negative. to finish 5 days of Azithromycin. # Acute lactic acidosis secondary to sepsis . resolved with IVF. # Acute hypokalemia received replacement with good response. Discharge plan Azithromycin for 3 more days Continue Ceftin to finish total of 2 weeks of antibiotics Time Attestation Discharge Coordination Time (in mins): 39 Quality: Safe Use of Opioids Does Pt have an Active Cancer Diagnosis on the Problem List?: No Quality: Stroke Does the patient have a stroke diagnosis?: No Physical Exam Vital Signs: Vital Signs: Last Vital Signs Temp 98.5 F 02/07/24 08:00 Pulse 84 02/07/24 08:00 Resp 13 02/07/24 08:00 BP 142/63 H 02/07/24 08:29 Pulse Ox 93 02/07/24 08:00 O2 Del Method Room Air 02/07/24 08:00 O2 Flow Rate 1 02/06/24 20:42 BMI result Body Mass Index 56.0 Const: Other: Constitutional : Awake, interactive, morbidly obese Neck : Normal inspection, Supple Cardiovascular : RRR, no JVP, bilateral lower extremity lymphedema Respiratory : good bilateral air entry, basal fine crackles, wheezes or rhonchi Gastrointestinal: soft, lax, Normal bowel sounds, Non tender Skin : Warm, Dry, chronic wounds in avi LE. covered with dressing Neurological : Alert & oriented x3, No focal deficit DS: Data Data Completed and Pending Labs on day of discharge: Laboratory Results - last 24 hr 02/05/24 02/06/24 02/07/24 16:27 12:28 06:06 WBC 7.1 4.7 L RBC 4.11 L 3.98 L Hgb 12.2 11.6 L Hct 36.8 L 35.3 L MCV 89.5 88.7 MCH 29.7 29.1 MCHC 33.2 32.9 RDW 15.1 15.0 Plt Count 122 L 115 L MPV 10.9 10.6 Immature Gran % (Auto) 0.4 Neut % (Auto) 83.9 H Lymph % (Auto) 6.6 L Carver % (Auto) 7.7 Eos % (Auto) 1.0 Baso % (Auto) 0.4 Lymph # (Auto) 0.5 L Carver # (Auto) 0.6 Eos # (Auto) 0.1 Baso # (Auto) 0.0 Abs Immat Gran (auto) 0.03 Absolute Neuts (auto) 6.0 Absolute Nucleated RBC 0.000 0.000 Nucleated RBC % (auto) 0.0 0.0 Sodium 138 Potassium 3.8 Chloride 101 Carbon Dioxide 31 H Anion Gap 10 L BUN 11 Creatinine 0.86 Estim Creat Clear Calc 80.8 Estimated GFR > 60 Random Glucose 93 Calcium 8.4 Respiratory Panel Fox See Note Adenovirus (Rapid PCR) Not Detected B.pert (TEM-PCR) Not Detected B.parapertussis DNA PCR Not Detected C. pneumoniae DNA (PCR) Not Detected Coronavirus OC43 (PCR) Not Detected Coronavirus HKU1 (PCR) Not Detected Coronavirus 229E (PCR) Not Detected Coronavirus NL63 (PCR) Not Detected Human Metapneumovir PCR Not Detected Influenza A (RT-PCR) Not Detected Influenza B (RT-PCR) Not Detected M. pneumoniae (PCR) Not Detected Parainfluenza 1 (PCR) Not Detected Parainfluenza 2 (PCR) Not Detected Parainfluenza 3 (PCR) Not Detected Parainfluenza 4 (PCR) Not Detected RSV (PCR) Not Detected Entero/Rhino (PCR) Not Detected SARS-CoV-2 RNA (RT-PCR) Not Detected Preliminary micro results at discharge 02/05/24 12:52 Blood Culture - Preliminary Blood - Venous Gram negative caryl 02/05/24 12:49 Blood Culture - Preliminary Blood - Venous Gram negative caryl Discharge Plan Discharge Anticipated Discharge Date/Time: 02/07/24 10:42 Patient Disposition: er [facility] Discharge Diagnosis: E.Coli Bacteremia URine infection Referrals: [facility] [Outside] - 1 Week Lali Watts MD [Primary Care Provider] - 1 Week Discharge Medications: New cefuroxime axetil 500 mg tablet 500 mg PO BID Qty: 22 0RF azithromycin 500 mg tablet 500 mg PO DAILY 3 Days Qty: 3 0RF Continued furosemide 40 mg tablet 40 mg PO BID potassium chloride [Klor-Con M20] 20 mEq Tablet,Er Particles/Crystals 40 meq PO DAILY magnesium hydroxide [Milk of Magnesia] 400 mg/5 mL Suspension 30 ml PO DAILY PRN (Reason: Constipation) Rx Instructions: If no bowel movement for 3 days Fleet Enema 19-7 gram/118 mL Enema 118 ml OR DAILY PRN (Reason: Constipation) Rx Instructions: If no bowel movement for 8 hour after Bisacodyl supp bismuth subsalicylate [Pepto-Bismol] 262 mg Tablet,Chewable 2 tab PO Q4H PRN (Reason: Stomach Upset) Rx Instructions: do not exceed 16 tabs per 24 hrs ondansetron 4 mg Tablet,Disintegrating 4 mg PO Q4H PRN (Reason: Nausea And Vomiting) duloxetine 60 mg capsule,delayed release(DR/EC) 60 mg PO DAILY acetaminophen 325 mg Tablet 650 mg PO Q6H PRN (Reason: Pain (Scale Score 1-3)) guaifenesin 100 mg/5 mL Liquid 200 mg PO Q4H PRN (Reason: Cough) bisacodyl 10 mg Suppository 10 mg OR DAILY PRN (Reason: Constipation) Rx Instructions: If no results for MOM docusate sodium 100 mg Capsule 100 mg PO BID cholecalciferol (vitamin D3) 50 mcg (2,000 unit) Tablet 50 mcg PO DAILY metoprolol tartrate 25 mg tablet 12.5 mg PO BID Protocol: Hold for SBP/HR < HOLD for SBP < : 100 HOLD for HR < : 60 Patient Comments: DBP<50 diclofenac sodium 1 % gel 4 g topical Q6H PRN (Reason: Pain) famotidine 20 mg tablet 20 mg PO BEDTIME trazodone 100 mg tablet 100 mg PO BEDTIME gabapentin 100 mg capsule 100 mg PO TID Discharge Orders: Discharge Order (Routine); Ordered 02/07/24 Ordered By: Olga Tsai Diet: Advance to usual diet Activity on Discharge: As tolerated Stand Alone Forms: Patient Portal Discharge page Print Language: [place] Care Plan Goals: You have urine infection by E.Coli bacteria complicated with blood infection with the same bacteria. improved with IV antibiotics. Azithromycin for 3 more days Continue Ceftin to finish total of 2 weeks of antibiotics Health Concerns: Read below Plan of Treatment: Read below Assessment: Read below
[2024-02-07] MEDS: cefTRIAXone sodium 1 GM in 0.9 % Sodium Chloride 50 ML IV (12:18)
[2024-02-07] MEDS: Azithromycin 500 MG in 0.9 % Sodium Chloride 250 ML 125 MG IV (13:05)
[2024-02-07 15:44] VITALS: BP 127/60; PULSE 89; RESP 13; TEMP 36.8; O2SAT 93
== END 2024-02-07 16:59 | disposition intermediate care facility (04) | DRG 871 ==
LOC: HO.ED 13:06 → HO.EDOVER 16:25 → HO.S3 02-06 20:21
PROVIDERS: Admitting Provider Student in an Organized Health Care Education/Training Program; Emergency Provider Emergency Medicine Emergency Medical Services; PCP Internal Medicine; Visit Provider Student in an Organized Health Care Education/Training Program
DX: A41.9 Sepsis, unspecified organism (principal); J12.9 Viral pneumonia, unspecified; J15.9 Unspecified bacterial pneumonia; E87.21 Acute metabolic acidosis; Z68.42 Body mass index [BMI] 45.0-49.9, adult; B96.20 Unspecified Escherichia coli [E. coli] as the cause of diseases classified elsewhere; I89.0 Lymphedema, not elsewhere classified; E66.01 Morbid (severe) obesity due to excess calories; E87.6 Hypokalemia; Z20.822 Contact with and (suspected) exposure to COVID-19; Z88.2 Allergy status to sulfonamides; Z79.899 Other long term (current) drug therapy
CPT/HCPCS: 0241U; 36415; 71045; 80048; 80053; 81001; 83605; 83690; 83880; 85025; 85027; 85730; 86140; 87040; 87077; 87086; 87088; 87186; 87205; 87633; 99285; J0456; J0696; J1650

== ENCOUNTER → 2024-02-05 16:14 | Outpatient (BNV) | payer MEDICARE, MEDICAID, SELFPAY | PROVIDERS: Admitting Provider Student in an Organized Health Care Education/Training Program; Emergency Provider Emergency Medicine Emergency Medical Services; PCP Internal Medicine; Visit Provider Student in an Organized Health Care Education/Training Program | DX: E87.20 Acidosis, unspecified (principal); E87.6 Hypokalemia; A41.9 Sepsis, unspecified organism; N39.0 Urinary tract infection, site not specified; R78.81 Bacteremia; B96.20 Unspecified Escherichia coli [E. coli] as the cause of diseases classified elsewhere; J18.9 Pneumonia, unspecified organism | CPT/HCPCS: 99223; 99232; 99239 ==

== ENCOUNTER 2024-03-11 13:57 | Outpatient (AMB) | payer MEDICARE, MEDICAID, SELFPAY ==
--- NOTE | 2024-03-11 14:00 | A.OFFVIS_ITS ---
Vital Signs 3 03/11/24 14:09 Pulse 66 Pulse Source Pulse Oximeter Temp 98.3 F Temp Source Oral Pulse Oximetry (%) 97 Oxygen Delivery Method Room Air Intake Visit Reasons: 6 mth F/U Allergies aspirin [ASPIRIN] Allergy (Unknown, Verified 03/11/24 14:19) TURNS RED codeine [CODEINE] Allergy (Unknown, Verified 03/11/24 14:19) UNKNOWN nitrofurantoin [NITROFURANTOIN] Allergy (Unknown, Verified 03/11/24 14:19) UNKNOWN Sulfa (Sulfonamide Antibiotics) [SULFA (SULFONAMIDE ANTIBIOTICS)] Allergy (Unknown, Verified 03/11/24 14:19) UNKNOWN Aspirin Allergy (Unknown, Uncoded 08/17/23 19:46) Unknown aspirin Allergy (Unknown, Uncoded 08/17/23 19:46) Unknown HPI HPI 6 mth F/U: Details: She feelas well. No further antibiotics and only she if inidicated [facility] Medical History Cellulitis and abscess of lower extremity Group A streptococcal infection Obesity Chronic anticoagulation DVT (deep venous thrombosis) Lymphedema Mood disorder Congestive heart failure Social History Household Members: None Housing: [facility] Do you presently have visiting nurse or other home services: No Patient Tobacco Use Status: Never used Tobacco e-Cigarette/Vaping Use: Never Used Second Hand Smoke Exposure: No Advance Directives Date on File: 08/17/23 Review of Systems Const All systems reviewed & are unremarkable except as noted in HPI and below Physical Exam Vital Signs: Last Vital Signs Temp 98.3 F 03/11/24 14:09 Pulse 66 03/11/24 14:09 Pulse Ox 97 03/11/24 14:09 Oxygen Delivery Method Room Air 03/11/24 14:09 Const Other: General: cooperative Orientation/consciousness: patient oriented x3 HEENT Head: Yes normal to inspection Mouth: Normal oral and palatal mucosa present Eyes General: appearance normal, both eyes and all related structures Pupils: Equal, round and reactive pupils present Resp Effort & Inspection: normal respiratory effort Cardio Rate: regular rate Rhythm: regular rhythm GI Palpation (GI): Soft to palpation and nontender General: Yes no CVA tenderness Back/Spine/Pelvis Back: no CVA tenderness Skin General skin exam: no rashes or lesions noted Neuro General: patient oriented x3 Cranial nerves: Yes CN's II-XII intact bilaterally and Yes Equal, round and reactive pupils present Extrem General: Yes normal to inspection Psych Appearance: grossly normal Assessment & Plan Assessment & Plan (1) E coli bacteremia: Comment: Bacteremia resolved Code(s): R78.81 - Bacteremia; B96.20 - Unspecified Escherichia coli [E. coli] as the cause of diseases classified elsewhere Category: Medical Plan: No further antibiotics at this time. (2) Cellulitis and abscess of lower extremity: Comment: resolving Code(s): L03.119 - Cellulitis of unspecified part of limb; L02.419 - Cutaneous abscess of limb, unspecified Category: Medical Plan: na (3) Obesity: Code(s): E66.9 - Obesity, unspecified Category: Medical Plan: na (4) Palpitations: Comment: Stable Code(s): R00.2 - Palpitations Category: Medical Plan: na (5) Group A streptococcal infection: Code(s): B95.0 - Streptococcus, group A, as the cause of diseases classified elsewhere Category: Medical (6) Lymphedema: Comment: No further abscess areas Skin is improving Code(s): I89.0 - Lymphedema, not elsewhere classified Category: Medical Plan na Coding Level of Care Code Est Pt Level 3 (30795) Diagnoses E coli bacteremia R78.81; B96.20 Cellulitis and abscess of lower extremity L03.119; L02.419 Obesity E66.9 Palpitations R00.2 Group A streptococcal infection B95.0 Lymphedema I89.0
[2024-03-11 14:09] VITALS: PULSE 66; TEMP 36.8; O2SAT 97
== END 2024-03-11 14:34 | disposition home or self-care (01) ==
LOC: HO.HID 13:57
PROVIDERS: PCP Internal Medicine; Visit Provider Internal Medicine
DX: R78.81 Bacteremia (principal); B96.20 Unspecified Escherichia coli [E. coli] as the cause of diseases classified elsewhere; L03.119 Cellulitis of unspecified part of limb; L02.419 Cutaneous abscess of limb, unspecified; E66.9 Obesity, unspecified; R00.2 Palpitations; B95.0 Streptococcus, group A, as the cause of diseases classified elsewhere; I89.0 Lymphedema, not elsewhere classified
CPT/HCPCS: 99213

== ENCOUNTER → 2024-03-11 13:57 | Outpatient (BNVA) | payer MEDICARE, MEDICAID, SELFPAY | PROVIDERS: PCP Internal Medicine; Visit Provider Internal Medicine | DX: R78.81 Bacteremia (principal); L03.119 Cellulitis of unspecified part of limb; L02.419 Cutaneous abscess of limb, unspecified; R00.2 Palpitations; B96.20 Unspecified Escherichia coli [E. coli] as the cause of diseases classified elsewhere; E66.9 Obesity, unspecified | CPT/HCPCS: 99212 ==